=== PATIENT | male | born 1950 | race Caucasian/White ===

== ENCOUNTER 2017-07-01 01:47 | Emergency (ER) | END 2017-07-01 07:00 | disposition home or self-care (01) ==

== ENCOUNTER 2018-01-25 18:10 | Observation (INO) | END 2018-01-26 20:30 | disposition home or self-care (01) ==

== ENCOUNTER 2018-08-21 17:53 | Inpatient (IN) | payer OTHER ==
[~2018-08-21] VITALS: Ht 167.6 cm; Wt 70.5 kg
[~2018-08-21 17:53] MED LIST: ATOR20TA38 PO; CALC667C PO; CITA10TA5 PO; CLOP75TA19 PO; FINA5TAB4 PO; OMEP20CA16 PO; TAMS0.4C2 PO
[2018-08-21] MEDS ORDERED: morphine 4 MG/ML VIAL IV STA (20:17)
[2018-08-21] MEDS ORDERED: OMEP20CA16 PO (22:37)
[2018-08-21] MEDS ORDERED: TAMS0.4C2 PO (22:37)
[2018-08-21] MEDS ORDERED: CLOP75TA19 PO (22:37)
[2018-08-21] MEDS ORDERED: CITA10TA5 PO (22:38)
[2018-08-21] MEDS ORDERED: FINA5TAB4 PO (22:38)
[2018-08-21] MEDS ORDERED: ACET325T33 PO (22:39)
[2018-08-21] MEDS ORDERED: ONDANSETRON 4 MG INJ IV PRN (23:00)
[2018-08-21] MEDS ORDERED: ACETAMINOPHEN 325 MG TAB PO PRN (23:00)
[2018-08-21] MEDS ORDERED: morphine 10 MG INJ IV ONE (23:30)
[2018-08-22] VITALS (11 sets, daily range): BP systolic 110–156; BP diastolic 68–81; PULSE 68–95; RESP 17–20; Ht 167.6 cm; Wt 70.5 kg
--- NOTE | 2018-08-22 00:09 | ERD ---
ER Documentation Chief Complaint Chief Complaint mech fall an hour ago; feeling dizzy; denies passing out/vomiting; c/o CP HPI 68-year-old male with a history of ESRD on hemodialysis presenting after mechanical fall today. Patient states that he was going up a step into his home after dialysis, lost his balance and fell backwards hitting the back of his head. He denies loss of consciousness, nausea, vomiting, vision disturbance, focal weakness or numbness. He does state that the back of his head and neck including his upper back are not pain. He always has chronic back pain but this is new. He describes the pain as aching, worse with movement, 7 out of 10, radiating all over his upper back. He denies any lower back pain. No chest pain or shortness of breath however he does state that his pain is worse when he takes a deep breath. ROS All systems reviewed and are negative except as per history of present illness. Medications Home Meds Reported Medications Acetaminophen* (Tylenol*) 325 Mg Tablet, 325 MG PO NEEDED PRN for PAIN AND OR ELEVATED TEMP, TAB 08/21/18 Finasteride* (Finasteride*) 5 Mg Tablet, 5 MG PO DAILY, TAB 08/21/18 Citalopram Hydrobromide* (Citalopram Hydrobromide*) 10 Mg Tablet, 10 MG PO DAILY, #30 TAB 08/21/18 Omeprazole* (Omeprazole*) 20 Mg Capsule.dr, 20 MG PO DAILY, #30 CAP 08/21/18 Tamsulosin Hcl* (Tamsulosin Hcl*) 0.4 Mg Cap.er.24h, 0.4 MG PO HS, CAP 08/21/18 Clopidogrel Bisulfate* (Clopidogrel Bisulfate*) 75 Mg Tablet, 75 MG PO DAILY, #30 TAB 08/21/18 Discontinued Reported Medications Atorvastatin Calcium* (Atorvastatin Calcium*) 20 Mg Tablet, 20 MG PO QHS, #30 TAB 01/25/18 Omeprazole* (Omeprazole*) 20 Mg Capsule.dr, 20 MG PO DAILY, #30 CAP 01/25/18 Tamsulosin Hcl* (Tamsulosin Hcl*) 0.4 Mg Cap.er.24h, 0.4 MG PO HS, CAP 01/25/18 Calcium Acetate* (Calcium Acetate*) 667 Mg Capsule, 2001 MG PO WITH MEALS, #90 CAP 01/25/18 Citalopram Hydrobromide* (Citalopram Hydrobromide*) 10 Mg Tablet, 10 MG PO DAILY, #30 TAB 01/25/18 Clopidogrel Bisulfate* (Clopidogrel Bisulfate*) 75 Mg Tablet, 75 MG PO DAILY, #30 TAB 01/25/18 Finasteride* (Finasteride*) 5 Mg Tablet, 5 MG PO DAILY, TAB 01/25/18 Allergies Allergies: Coded Allergies: No Known Allergies (Verified Allergy, Unknown, 08/21/18) PMhx/Soc History of Surgery: No Anesthesia Reaction: No Hx Neurological Disorder: Yes (CVA, SEIZURE) Hx Respiratory Disorders: No Hx Cardiac Disorders: Yes (HTN, CHF, AL) Hx Psychiatric Problems: No Hx Miscellaneous Medical Probl: Yes (Ankylosing spondylitis) Hx Alcohol Use: Yes Hx Substance Use: No Hx Tobacco Use: Yes Smoking Status: Never smoker FmHx Family History: No diabetes Physical Exam Vitals Vital Signs Date Temp Pulse Resp B/P (MAP) Pulse Ox O2 O2 Flow FiO2 Time Delivery Rate 08/22/18 98.4 88 12 132/63 94 Room Air 00:52 (86) 08/22/18 98.4 100 23 144/67 94 Room Air 00:15 (92) 08/21/18 98.4 90 18 95/71 (79) 96 Room Air 23:30 08/21/18 98.4 98 20 124/71 96 Room Air 22:30 (88) 08/21/18 98.4 83 21 140/81 99 Room Air 21:50 (100) 08/21/18 98.4 90 21 135/56 99 Room Air 20:38 (82) 08/21/18 98.4 107 21 96/53 (67) 99 Room Air 19:49 08/21/18 98.4 82 20 96/53 (67) 99 18:00 Physical Exam Const: No acute distress, laying in bed nontoxic Head: Atraumatic, no hematomas or skull depression Eyes: Normal Conjunctiva, PERRLA, EOMI, no nystagmus ENT: Normal External Ears, Nose and Mouth. Neck: Full range of motion. No meningismus. Midline C-spine ten derness without step-offs. Paraspinal muscle tenderness bilaterally. Resp: Clear to auscultation bilaterally Cardio: Regular rate and rhythm, no murmurs. 2+ DP and PT pulses bilaterally. 2+ radial pulses bilaterally Abd: Soft, non tender, non distended. Normal bowel sounds Skin: No petechiae or rashes Back: Diffuse midline tenderness, worse in the thoracic region without step- offs. Right paraspinal muscle tenderness. No scapular tenderness. Ext: Normal to inspection and palpation without deformities. Full range of motion at all extremities Neur: Awake and alert, cranial nerves intact, speech normal, strength and sensations intact in all 4 extremities Psych: Normal Mood and Affect Result Diagram: 08/21/18200508/21/182005 Results 24 hrs Laboratory Tests Test 08/21/18 20:06 White Blood Count 13.0 10^3/ul Red Blood Count 4.11 10^6/ul Hemoglobin 12.0 g/dl Hematocrit 37.0 % Mean Corpuscular Volume 90.0 fl Mean Corpuscular Hemoglobin 29.2 pg Mean Corpuscular Hemoglobin Concent 32.4 g/dl Red Cell Distribution Width 13.9 % Platelet Count 238 10^3/UL Mean Platelet Volume 10.2 fl Immature Granulocytes % 0.700 % Neutrophils % 90.3 % Lymphocytes % 4.4 % Monocytes % 3.9 % Eosinophils % 0.2 % Basophils % 0.5 % Nucleated Red Blood Cells % 0.0 /100WBC Immature Granulocytes # 0.090 10^3/ul Neutrophils # 11.7 10^3/ul Lymphocytes # 0.6 10^3/ul Monocytes # 0.5 10^3/ul Eosinophils # 0.0 10^3/ul Basophils # 0.1 10^3/ul Nucleated Red Blood Cells # 0.0 10^3/ul Prothrombin Time 12.9 Sec Prothrombin Time Ratio 1.0 INR International Normalized Ratio 0.96 Activated Partial Thromboplast Time 25.3 Sec Sodium Level 141 mmol/L Potassium Level 3.5 mmol/L Chloride Level 90 mmol/L Carbon Dioxide Level 33 mmol/L Anion Gap 18 Blood Urea Nitrogen 36 mg/dl Creatinine 4.47 mg/dl Est Glomerular Filtrat Rate mL/min 13 mL/min Glucose Level 205 mg/dl Calcium Level 10.0 mg/dl Current Medications Medications Dose Sig/Kari Start Time Status Last (Trade) Ordered Route PRN Stop Time Admin Dose Reason Admin Morphine 4 mg ONCE STAT 08/21/18 DC 08/21/18 Sulfate IV 20:17 20:38 (morphine) 08/21/18 20:19 Ondansetron 4 mg BRIDGE ORDER 08/21/18 HCl (Zofran PRN IV 23:00 Inj) NAUSEA/VOMITI 08/22/18 22:59 NG 650 mg ER BRIDGE 08/21/18 Acetaminophen PRN PO 23:00 (Tylenol .MILD PAIN 08/22/18 22:59 Tab) 1-3 OR TEMP Morphine 6 mg ONCE ONCE 08/21/18 DC 08/21/18 Sulfate IV 23:30 23:30 (morphine) 08/21/18 23:31 IV Flush 3 ml PER 08/22/18 (NS 3 ml) PROTOCOL IV 01:00 Ondansetron 4 mg Q6H PRN 08/22/18 HCl (Zofran IV 01:00 Inj) NAUSEA/VOMITI NG 650 mg Q6H PRN 08/22/18 Acetaminophen PO .PAIN 1-3 01:00 (Tylenol OR TEMP Tab) 1 tab Q6H PRN 08/22/18 Acetaminophen PO .MOD PAIN 01:00 / 4-6 Hydrocodone Bitart ([place] (5/325)) 2 tab Q6H PRN 08/22/18 Acetaminophen PO .SEVERE 01:00 / PAIN 7-10 Hydrocodone Bitart ([place] (5/325)) Morphine 4 mg Q4H PRN 08/22/18 Sulfate IV .SEVERE 01:00 (morphine) PAIN 7-10 Heparin 5,000 unit Q12 SC 08/22/18 Sodium 09:00 (Porcine) (Heparin (5000 Units/1ml)) Albuterol/ 3 ml Q2H RESP 08/22/18 Ipratropium THERAPY PRN 01:00 (Duoneb) HHN SHORTNESS OF BREATH Citalopram 10 mg DAILY PO 08/22/18 Hydrobromide 09:00 (Celexa) Finasteride 5 mg DAILY PO 08/22/18 (Proscar) 09:00 Tamsulosin 0.4 mg HS PO 08/22/18 HCl 21:00 (Flomax) 20 mg DAILY PO 08/22/18 DC Miscellaneous 09:00 Information 08/22/18 09:00 40 mg DAILY@06 08/22/18 Pantoprazole PO 06:00 (Protonix Tab) Procedures/MDM EMERGENT LABS AND DIAGNOSTIC STUDIES: Lab Results above were reviewed and interpreted by me. CBC: Mild leukocytosis, likely stress response BMP shows elevated BUN and creatinine, consistent with chronic renal failure. Hyperglycemic without evidence of acidosis. No significant electrolyte abnormalities Coags are within normal limits Radiology Results as interpreted by Radiology below were reviewed by Berenice Jain MD: CT C-spine: C7 and T1 disc fracture, right C7 pedicle fracture. Bilateral pars fractures of C7. CT T and L-spine show no acute abnormalities X-ray of the pelvis shows no acute fractures or dislocations CT chest shows no acute intrathoracic or thoracic acute traumatic abnormalities. Initial Nursing notes reviewed. Previous Medical Records requested via the Electronic Health Record. EMERGENCY DEPARTMENT COURSE / MEDICAL DECISION MAKING: CT head was done given his age and fact that he is using anticoagulants. CT head did not show any significant abnormalities. However the CT of his C-spine did show fractures at the C7 level. There is no evidence of cord compression at this time or any neurologic deficit on exam. I spoke with the neurosurgeon on- call and he reviewed the images. He recommended c-collar which had already been placed. He also recommended an MRI of the C-spine which was ordered. I updated the patient and his family at bedside regarding the results and plan for admission. They are agreeable. Patient was treated with morphine for his pain with improvement. Accepting Care Team: Current data and ongoing care discussed. Time: Time of admission Primary Provider: Dr. Cartagena Consulting: Dr. Ortiz with Neurosurgery Outstanding Data: MRI patient is presenting after a ground-level fall with no loss of consciousness. Vitals are stable. He is neurovascularly intact.C spine Departure Diagnosis: Primary Impression: Cervical spine fracture Encounter type: initial encounter Cervical vertebra fracture level: C7 Fracture type: closed Fracture morphology: unspecified fracture morphology Fracture alignment: nondisplaced Qualified Codes: S12.601A - Unspecified nondisplaced fracture of seventh cervical vertebra, initial encounter for closed fracture Additional Impression: History of ankylosing spondylitis Condition: Serious ASRAH JAIN MD Aug 22, 2018 00:09
[2018-08-22] MEDS ORDERED: ONDANSETRON 4 MG INJ IV PRN (01:00)
[2018-08-22] MEDS ORDERED: NACL 0.9% 3 ML SYG IV SCH (01:00)
[2018-08-22] MEDS ORDERED: ACETAMINOPHEN 325 MG TAB PO PRN (01:00)
[2018-08-22] MEDS ORDERED: ALBUTEROL/IPRATROPIUM (NEB) 3 ML AMP HHN PRN (01:00)
[2018-08-22] MEDS ORDERED: HYDROCODONE/APAP (5/325) TAB PO PRN ×2 (01:00)
--- NOTE | 2018-08-22 04:56 | HP ---
Date/Time of Note Date/Time of Note DATE: 08/22/18 TIME: 04:51 Assessment/Plan VTE Prophylaxis Pharmacological prophylaxis: heparin Lines/Catheters IV Catheter Type (from Nrsg): [place] Lock Urinary Cath still in place: No Assessment/Plan Assessment/Plan 1. C7 fracture: Status post mechanical fall -Pain management -Awaiting neurosurgery eval 2. ESRD on HD: Nephrology for dialysis 3. Hypertension: Adjust BP meds as needed 4. History of CVA: Continue home antiplatelet therapy 5. BPH: Continue Flomax and finasteride Result Diagram: 08/21/18200508/21/182005 Results 24hrs Laboratory Tests Test 08/21/18 20:06 White Blood Count 13.0 #H Red Blood Count 4.11 L Hemoglobin 12.0 L Hematocrit 37.0 L Mean Corpuscular Volume 90.0 Mean Corpuscular Hemoglobin 29.2 Mean Corpuscular Hemoglobin Concent 32.4 Red Cell Distribution Width 13.9 Platelet Count 238 Mean Platelet Volume 10.2 Immature Granulocytes % 0.700 H Neutrophils % 90.3 H Lymphocytes % 4.4 L Monocytes % 3.9 Eosinophils % 0.2 Basophils % 0.5 Nucleated Red Blood Cells % 0.0 Immature Granulocytes # 0.090 H Neutrophils # 11.7 H Lymphocytes # 0.6 L Monocytes # 0.5 Eosinophils # 0.0 Basophils # 0.1 Nucleated Red Blood Cells # 0.0 Prothrombin Time 12.9 Prothrombin Time Ratio 1.0 INR International Normalized Ratio 0.96 Activated Partial Thromboplast Time 25.3 Sodium Level 141 Potassium Level 3.5 Chloride Level 90 L Carbon Dioxide Level 33 H Anion Gap 18 H Blood Urea Nitrogen 36 H Creatinine 4.47 H Est Glomerular Filtrat Rate mL/min 13 L Glucose Level 205 Calcium Level 10.0 HPI/ROS Admit Date/Time Admit Date/Time Aug 21, 2018 at 22:46 Hx of Present Illness This is a 68-year-old male with a history of hypertension, CVA, CHF, ESRD on HD, BPH who presents the ER complaining of back pain status post fall. Patient had a dialysis and after he went home, he lost his balance while walking upstairs resulting in him falling down. Imaging in the ER shows C7-T1 fracture. On-call neurosurgeon was contacted by ER. PMH/Family/Social Past Medical History Past Surgical History Past Surgical Hx: other (see hpi) Family History Significant Family History: no pertinent family hx Social History Alcohol Use: other Smoking Status: Unknown if ever smoked Drug Use: other Exam Constitutional: other (no acute distress) Eyes: PERRL ENMT: nl external ears & nose Neck: supple Respiratory: normal air movement Cardiovascular: nl pulses Gastrointestinal: soft Extremities: normal pulses Medications Current Medications Ondansetron HCl (Zofran Inj) 4 mg BRIDGE ORDER PRN IV NAUSEA/VOMITING; Start 08/21/18 at 23:00; Stop 08/22/18 at 22:59 Acetaminophen (Tylenol Tab) 650 mg ER BRIDGE PRN PO .MILD PAIN 1-3 OR TEMP; Start 08/21/18 at 23:00; Stop 08/22/18 at 22:59 IV Flush (NS 3 ml) 3 ml PER PROTOCOL IV ; Start 08/22/18 at 01:00 Ondansetron HCl (Zofran Inj) 4 mg Q6H PRN IV NAUSEA/VOMITING; Start 08/22/18 at 01:00 Acetaminophen (Tylenol Tab) 650 mg Q6H PRN PO .PAIN 1-3 OR TEMP; Start 08/22/18 at 01:00 Acetaminophen/ Hydrocodone Bitart ([place] (5/325)) 1 tab Q6H PRN PO .MOD PAIN 4- 6; Start 08/22/18 at 01:00 Acetaminophen/ Hydrocodone Bitart ([place] (5/325)) 2 tab Q6H PRN PO .SEVERE PAIN 7-10; Start 08/22/18 at 01:00 Morphine Sulfate (morphine) 4 mg Q4H PRN IV .SEVERE PAIN 7-10; Start 08/22/18 at 01:00 Heparin Sodium (Porcine) (Heparin (5000 Units/1ml)) 5,000 unit Q12 SC ; Start 08/22/18 at 09:00 Albuterol/ Ipratropium (Duoneb) 3 ml Q2H RESP THERAPY PRN HHN SHORTNESS OF BREATH; Start 08/22/18 at 01:00 Citalopram Hydrobromide (Celexa) 10 mg DAILY PO ; Start 08/22/18 at 09:00 Finasteride (Proscar) 5 mg DAILY PO ; Start 08/22/18 at 09:00 Tamsulosin HCl (Flomax) 0.4 mg HS PO ; Start 08/22/18 at 21:00 Pantoprazole (Protonix Tab) 40 mg DAILY@06 PO ; Start 08/22/18 at 06:00 Coded Allergies: No Known Allergies (Verified Allergy, Unknown, 08/21/18) Past Surgical History Past Surgical Hx: other Family History Significant Family History: no pertinent family hx Social History Smoking Status: Never smoker Exam/Review of Systems Vital Signs Vitals Vital Signs Date Temp Pulse Resp B/P (MAP) Pulse Ox O2 O2 Flow FiO2 Time Delivery Rate 08/22/18 89 04:00 08/22/18 98.5 17 156/77 93 02:50 (103) 08/22/18 Room Air 00:52 MIKAL CAGE MD Aug 22, 2018 04:56
[2018-08-22] MEDS: morphine 4 MG/ML VIAL IV PRN ×4 (05:26→20:10)
[2018-08-22] MEDS ORDERED: PANTOPRAZOLE (EC) 40 MG TAB PO SCH (06:00)
[2018-08-22] MEDS: HEPARIN 5,000 UNIT/1 ML VIAL SC SCH ×2 (08:36→20:12)
[2018-08-22] MEDS ORDERED: CITALOPRAM 20 MG TAB PO SCH (09:00)
[2018-08-22] MEDS ORDERED: FINASTERIDE 5 MG TAB PO SCH (09:00)
[2018-08-22] MEDS ORDERED: NON-FORMULARY/PATIENT OWN MED (Omeprazole* 20 MG) PO SCH (09:00)
--- NOTE | 2018-08-22 09:35 | CONS ---
Assessment/Plan Assessment/Plan Assessment/Plan (Daily) Diagnoses 1) Diffuse Idiopathic Skeletal Hyperostosis (DISH) 2) C7 vertebral fracture (anterior osteophyte and right pedicle) Mr. Segura is a 68 year old with multiple medical co-morbidities and DISH who has an anterior osteophyte fracture and Right pedicle fracture at C7. Given his co-morbidities and the presence of DISH (requiring a longer construct posterior fusion, possible anterior fusion), it is preferable to pursue conservative management for the now. - Please place in [place] Cervical Collar - can remove collar to eat at meals - Will see in follow-up in 6 weeks with a repeat C-spine CT (will determine if C-collar can be removed at that time and if conservative management can be continued) Consultation Date/Type/Reason Admit Date/Time Aug 21, 2018 at 22:46 Date of Consultation: Aug 22, 2018 Type of Consult Neurosurgery Reason for Consultation Neck pain, fall Date/Time of Note DATE: 08/22/18 TIME: 09:27 Hx of Present Illness Mr. Mcrae is a 68 year old male with history of ESRD on dialysis x3 years, prior stroke and acute CHF, on plavix who fell while walking up stairs yesterday and noted neck pain. He denies weakness or numbness. CT demonstrated a cervical fracture and DISH. Positive for neck pain Negative for weakness or numbness Past Medical History Home Meds Reported Medications Acetaminophen* (Tylenol*) 325 Mg Tablet, 325 MG PO NEEDED PRN for PAIN AND OR ELEVATED TEMP, TAB 08/21/18 Finasteride* (Finasteride*) 5 Mg Tablet, 5 MG PO DAILY, TAB 08/21/18 Citalopram Hydrobromide* (Citalopram Hydrobromide*) 10 Mg Tablet, 10 MG PO DAILY, #30 TAB 08/21/18 Omeprazole* (Omeprazole*) 20 Mg Capsule.dr, 20 MG PO DAILY, #30 CAP 08/21/18 Tamsulosin Hcl* (Tamsulosin Hcl*) 0.4 Mg Cap.er.24h, 0.4 MG PO HS, CAP 08/21/18 Clopidogrel Bisulfate* (Clopidogrel Bisulfate*) 75 Mg Tablet, 75 MG PO DAILY, #30 TAB 08/21/18 Discontinued Reported Medications Atorvastatin Calcium* (Atorvastatin Calcium*) 20 Mg Tablet, 20 MG PO QHS, #30 TAB 01/25/18 Omeprazole* (Omeprazole*) 20 Mg Capsule.dr, 20 MG PO DAILY, #30 CAP 01/25/18 Tamsulosin Hcl* (Tamsulosin Hcl*) 0.4 Mg Cap.er.24h, 0.4 MG PO HS, CAP 01/25/18 Calcium Acetate* (Calcium Acetate*) 667 Mg Capsule, 2001 MG PO WITH MEALS, #90 CAP 01/25/18 Citalopram Hydrobromide* (Citalopram Hydrobromide*) 10 Mg Tablet, 10 MG PO DAILY, #30 TAB 01/25/18 Clopidogrel Bisulfate* (Clopidogrel Bisulfate*) 75 Mg Tablet, 75 MG PO DAILY, #30 TAB 01/25/18 Finasteride* (Finasteride*) 5 Mg Tablet, 5 MG PO DAILY, TAB 01/25/18 Medications Current Medications Ondansetron HCl (Zofran Inj) 4 mg BRIDGE ORDER PRN IV NAUSEA/VOMITING; Start 08/21/18 at 23:00; Stop 08/22/18 at 22:59 Acetaminophen (Tylenol Tab) 650 mg ER BRIDGE PRN PO .MILD PAIN 1-3 OR TEMP; Start 08/21/18 at 23:00; Stop 08/22/18 at 22:59 IV Flush (NS 3 ml) 3 ml PER PROTOCOL IV ; Start 08/22/18 at 01:00 Ondansetron HCl (Zofran Inj) 4 mg Q6H PRN IV NAUSEA/VOMITING; Start 08/22/18 at 01:00 Acetaminophen (Tylenol Tab) 650 mg Q6H PRN PO .PAIN 1-3 OR TEMP; Start 08/22/18 at 01:00 Acetaminophen/ Hydrocodone Bitart ([place] (5/325)) 1 tab Q6H PRN PO .MOD PAIN 4- 6; Start 08/22/18 at 01:00 Acetaminophen/ Hydrocodone Bitart ([place] (5/325)) 2 tab Q6H PRN PO .SEVERE PAIN 7-10; Start 08/22/18 at 01:00 Morphine Sulfate (morphine) 4 mg Q4H PRN IV .SEVERE PAIN 7-10 Last administered on 08/22/18at 05:26; Admin Dose 4 MG; Start 08/22/18 at 01:00 Heparin Sodium (Porcine) (Heparin (5000 Units/1ml)) 5,000 unit Q12 SC Last administered on 08/22/18at 08:36; Admin Dose 5,000 UNIT; Start 08/22/18 at 09:00 Albuterol/ Ipratropium (Duoneb) 3 ml Q2H RESP THERAPY PRN HHN SHORTNESS OF BREATH; Start 08/22/18 at 01:00 Citalopram Hydrobromide (Celexa) 10 mg DAILY PO Last administered on 08/22/18at 08:30; Admin Dose 10 MG; Start 08/22/18 at 09:00 Finasteride (Proscar) 5 mg DAILY PO Last administered on 08/22/18at 08:30; Admin Dose 5 MG; Start 08/22/18 at 09:00 Tamsulosin HCl (Flomax) 0.4 mg HS PO ; Start 08/22/18 at 21:00 Pantoprazole (Protonix Tab) 40 mg DAILY@06 PO Last administered on 08/22/18at 05:26; Admin Dose 40 MG; Start 08/22/18 at 06:00 Allergies: Coded Allergies: No Known Allergies (Verified Allergy, Unknown, 08/21/18) Past Surgical History Past Surgical Hx: other Social History Smoking Status: Never smoker Exam/Review of Systems Exam Vitals Vital Signs Date Temp Pulse Resp B/P (MAP) Pulse Ox O2 O2 Flow FiO2 Time Delivery Rate 08/22/18 95 08:12 08/22/18 98.2 20 110/77 96 Room Air 07:32 (88) Intake and Output 08/21/18 08/21/18 08/22/18 1515:00 23:00 07:00 IntakeIntake Total 100 ml BalanceBalance 100 ml Exam In soft collar Full strength Results Result Diagram: 08/22/18 0556 08/22/18 0556 Results 24hrs Laboratory Tests Test 08/21/18 20:06 08/22/18 05:56 White Blood Count 13.0 #H 8.5 # Red Blood Count 4.11 L 3.72 L Hemoglobin 12.0 L 10.9 L Hematocrit 37.0 L 33.8 L Mean Corpuscular Volume 90.0 90.9 Mean Corpuscular Hemoglobin 29.2 29.3 Mean Corpuscular Hemoglobin Concent 32.4 32.2 Red Cell Distribution Width 13.9 14.1 Platelet Count 238 234 Mean Platelet Volume 10.2 10.3 Immature Granulocytes % 0.700 H 0.500 H Neutrophils % 90.3 H 76.5 Lymphocytes % 4.4 L 14.2 L Monocytes % 3.9 8.2 Eosinophils % 0.2 0.1 Basophils % 0.5 0.5 Nucleated Red Blood Cells % 0.0 0.0 Immature Granulocytes # 0.090 H 0.040 H Neutrophils # 11.7 H 6.5 Lymphocytes # 0.6 L 1.2 Monocytes # 0.5 0.7 Eosinophils # 0.0 0.0 Basophils # 0.1 0.0 Nucleated Red Blood Cells # 0.0 0.0 Prothrombin Time 12.9 Prothrombin Time Ratio 1.0 INR International Normalized Ratio 0.96 Activated Partial Thromboplast Time 25.3 Sodium Level 141 142 Potassium Level 3.5 3.8 Chloride Level 90 L 92 L Carbon Dioxide Level 33 H 33 H Anion Gap 18 H 17 H Blood Urea Nitrogen 36 H 44 H Creatinine 4.47 H 5.59 H Est Glomerular Filtrat Rate mL/min 13 L 10 L Glucose Level 205 127 # Calcium Level 10.0 9.6 Magnesium Level 2.3 Total Bilirubin 0.4 Direct Bilirubin 0.00 Indirect Bilirubin 0.4 Aspartate Amino Transf (AST/SGOT) 24 Alanine Aminotransferase (ALT/SGPT) 9 L Alkaline Phosphatase 84 Total Protein 8.6 H Albumin 4.5 Globulin 4.10 H Albumin/Globulin Ratio 1.[address] and MRI of the cervical spine demonstrate Diffuse Idiopathic Skeletal Hyperostosis (DISH) with an anterior osteophyte fracture at C7/T1 consistent with a hyperextension injury. There is a right pedicle fracture at C7. These fractures are non-displaced. There is no spinal canal compromise or kyphosis Medications Medication Current Medications Ondansetron HCl (Zofran Inj) 4 mg BRIDGE ORDER PRN IV NAUSEA/VOMITING; Start 08/21/18 at 23:00; Stop 08/22/18 at 22:59 Acetaminophen (Tylenol Tab) 650 mg ER BRIDGE PRN PO .MILD PAIN 1-3 OR TEMP; Start 08/21/18 at 23:00; Stop 08/22/18 at 22:59 IV Flush (NS 3 ml) 3 ml PER PROTOCOL IV ; Start 08/22/18 at 01:00 Ondansetron HCl (Zofran Inj) 4 mg Q6H PRN IV NAUSEA/VOMITING; Start 08/22/18 at 01:00 Acetaminophen (Tylenol Tab) 650 mg Q6H PRN PO .PAIN 1-3 OR TEMP; Start 08/22/18 at 01:00 Acetaminophen/ Hydrocodone Bitart ([place] (5/325)) 1 tab Q6H PRN PO .MOD PAIN 4- 6; Start 08/22/18 at 01:00 Acetaminophen/ Hydrocodone Bitart ([place] (5/325)) 2 tab Q6H PRN PO .SEVERE PAIN 7-10; Start 08/22/18 at 01:00 Morphine Sulfate (morphine) 4 mg Q4H PRN IV .SEVERE PAIN 7-10 Last administered on 08/22/18 05:26; Admin Dose 4 MG; Start 08/22/18 at 01:00 Heparin Sodium (Porcine) (Heparin (5000 Units/1ml)) 5,000 unit Q12 SC Last administered on 08/22/18at 08:36; Admin Dose 5,000 UNIT; Start 08/22/18 at 09:00 Albuterol/ Ipratropium (Duoneb) 3 ml Q2H RESP THERAPY PRN HHN SHORTNESS OF BREATH; Start 08/22/18 at 01:00 Citalopram Hydrobromide (Celexa) 10 mg DAILY PO Last administered on 08/22/18at 08:30; Admin Dose 10 MG; Start 08/22/18 at 09:00 Finasteride (Proscar) 5 mg DAILY PO Last administered on 08/22/18at 08:30; Admin Dose 5 MG; Start 08/22/18 at 09:00 Tamsulosin HCl (Flomax) 0.4 mg HS PO ; Start 08/22/18 at 21:00 Pantoprazole (Protonix Tab) 40 mg DAILY@06 PO Last administered on 08/22/18 05:26; Admin Dose 40 MG; Start 08/22/18 at 06:00 KEY MONAHAN MD Aug 22, 2018 09:35
--- NOTE | 2018-08-22 11:50 | PN ---
Date/Time of Note Date/Time of Note DATE: 08/22/18 TIME: 11:48 Assessment/Plan VTE Prophylaxis Risk score (from Nsg)>0 risk: 8 SCD applied (from Nsg): Yes Pharmacological prophylaxis: NA/contraindicated Pharm contraindication: other (scd) Lines/Catheters IV Catheter Type (from Nrsg): Saline Lock Urinary Cath still in place: No Assessment/Plan Hospital Course 68-year-old male with end-stage renal disease who had a mechanical fall at his home after hemodialysis yesterday and came in complaining of pain in his neck currently managed as follows : 1. acute C7/T1 spinal fracture with associated small ligamental tear -Patient has been seen by neurosurgery, recommendation is for conservative management for now -Patient is to have [place] collar at all times for at least 6 weeks, aspirin collar can be removed to eat per neurosurgery. -Patient to follow-up with neurosurgery in 6 weeks for further management 2. Chronic end-stage renal disease on hemodialysis on Wednesdays and Fridays, -continue routine dialysis, patient also has chronic metabolic acidosis from this 3. Diffuse idiopathic skeletal hyperostosis: -Patient may benefit from outpatient bone scan, will start calcium supplementation. We will also check vitamin D level 4. Chronic BPH continue home Flomax and tamsulosin 5. 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 Chronic depression on Cymbalta: Stable 7. Reported history of CHF? 8. reactive leukocytosis 9. Chronic normocytic anemia likely related to end-stage renal disease 10. Paroxysmal Aib -BB for rate control, not a candidate for anticoagulation, high fall risk, also on plavix Plan: Patient is to be managed conservatively for now with collar, will get physical therapy evaluation to determine disposition. However due to presence of continued pain, patient may benefit from [facility]-term [facility] [facility] placement and transition to home after that. We will discuss options with him. In the interim continue supportive care. Result Diagram: 08/22/18 0556 08/22/18 0556 Results 24hrs Laboratory Tests Test 08/21/18 20:06 08/22/18 05:56 White Blood Count 13.0 #H 8.5 # Red Blood Count 4.11 L 3.72 L Hemoglobin 12.0 L 10.9 L Hematocrit 37.0 L 33.8 L Mean Corpuscular Volume 90.0 90.9 Mean Corpuscular Hemoglobin 29.2 29.3 Mean Corpuscular Hemoglobin Concent 32.4 32.2 Red Cell Distribution Width 13.9 14.1 Platelet Count 238 234 Mean Platelet Volume 10.2 10.3 Immature Granulocytes % 0.700 H 0.500 H Neutrophils % 90.3 H 76.5 Lymphocytes % 4.4 L 14.2 L Monocytes % 3.9 8.2 Eosinophils % 0.2 0.1 Basophils % 0.5 0.5 Nucleated Red Blood Cells % 0.0 0.0 Immature Granulocytes # 0.090 H 0.040 H Neutrophils # 11.7 H 6.5 Lymphocytes # 0.6 L 1.2 Monocytes # 0.5 0.7 Eosinophils # 0.0 0.0 Basophils # 0.1 0.0 Nucleated Red Blood Cells # 0.0 0.0 Prothrombin Time 12.9 Prothrombin Time Ratio 1.0 INR International Normalized Ratio 0.96 Activated Partial Thromboplast Time 25.3 Sodium Level 141 142 Potassium Level 3.5 3.8 Chloride Level 90 L 92 L Carbon Dioxide Level 33 H 33 H Anion Gap 18 H 17 H Blood Urea Nitrogen 36 H 44 H Creatinine 4.47 H 5.59 H Est Glomerular Filtrat Rate mL/min 13 L 10 L Glucose Level 205 127 # Calcium Level 10.0 9.6 Magnesium Level 2.3 Total Bilirubin 0.4 Direct Bilirubin 0.00 Indirect Bilirubin 0.4 Aspartate Amino Transf (AST/SGOT) 24 Alanine Aminotransferase (ALT/SGPT) 9 L Alkaline Phosphatase 84 Total Protein 8.6 H Albumin 4.5 Globulin 4.10 H Albumin/Globulin Ratio 1.09 Subjective 24 Hr Interval Summary Free Text/Dictation Patient was going to the bathroom with assistance of 2CNAs intermittent pain in neck, responding well to prescribed meds went into Afib Exam/Review of Systems Exam Vitals Vital Signs Date Temp Pulse Resp B/P (MAP) Pulse Ox O2 O2 Flow FiO2 Time Delivery Rate 08/22/18 98.0 82 20 128/70 91 Room Air 11:25 (89) Intake and Output 08/21/18 08/21/18 08/22/18 1515:00 23:00 07:00 IntakeIntake Total 100 ml BalanceBalance 100 ml Exam Constitutional: alert, oriented, no distress Head: atraumatic, normocephalic Neck: soft collar in place Respiratory: clear to auscultation, diminished Cardiovascular: irregular Gastrointestinal: S/ NT / ND / +BS Extremities: no edema, good radial pulses, L sided hemiparesis limiting ambulation. Patient dragging LLE Results Results 24hrs Laboratory Tests Test 08/21/18 20:06 08/22/18 05:56 White Blood Count 13.0 #H 8.5 # Red Blood Count 4.11 L 3.72 L Hemoglobin 12.0 L 10.9 L Hematocrit 37.0 L 33.8 L Mean Corpuscular Volume 90.0 90.9 Mean Corpuscular Hemoglobin 29.2 29.3 Mean Corpuscular Hemoglobin Concent 32.4 32.2 Red Cell Distribution Width 13.9 14.1 Platelet Count 238 234 Mean Platelet Volume 10.2 10.3 Immature Granulocytes % 0.700 H 0.500 H Neutrophils % 90.3 H 76.5 Lymphocytes % 4.4 L 14.2 L Monocytes % 3.9 8.2 Eosinophils % 0.2 0.1 Basophils % 0.5 0.5 Nucleated Red Blood Cells % 0.0 0.0 Immature Granulocytes # 0.090 H 0.040 H Neutrophils # 11.7 H 6.5 Lymphocytes # 0.6 L 1.2 Monocytes # 0.5 0.7 Eosinophils # 0.0 0.0 Basophils # 0.1 0.0 Nucleated Red Blood Cells # 0.0 0.0 Prothrombin Time 12.9 Prothrombin Time Ratio 1.0 INR International Normalized Ratio 0.96 Activated Partial Thromboplast Time 25.3 Sodium Level 141 142 Potassium Level 3.5 3.8 Chloride Level 90 L 92 L Carbon Dioxide Level 33 H 33 H Anion Gap 18 H 17 H Blood Urea Nitrogen 36 H 44 H Creatinine 4.47 H 5.59 H Est Glomerular Filtrat Rate mL/min 13 L 10 L Glucose Level 205 127 # Calcium Level 10.0 9.6 Magnesium Level 2.3 Total Bilirubin 0.4 Direct Bilirubin 0.00 Indirect Bilirubin 0.4 Aspartate Amino Transf (AST/SGOT) 24 Alanine Aminotransferase (ALT/SGPT) 9 L Alkaline Phosphatase 84 Total Protein 8.6 H Albumin 4.5 Globulin 4.10 H Albumin/Globulin Ratio 1.09 Medications Medication Current Medications Ondansetron HCl (Zofran Inj) 4 mg BRIDGE ORDER PRN IV NAUSEA/VOMITING; Start 08/21/18 at 23:00; Stop 08/22/18 at 22:59 Acetaminophen (Tylenol Tab) 650 mg ER BRIDGE PRN PO .MILD PAIN 1-3 OR TEMP; Start 08/21/18 at 23:00; Stop 08/22/18 at 22:59 IV Flush (NS 3 ml) 3 ml PER PROTOCOL IV ; Start 08/22/18 at 01:00 Ondansetron HCl (Zofran Inj) 4 mg Q6H PRN IV NAUSEA/VOMITING; Start 08/22/18 at 01:00 Acetaminophen (Tylenol Tab) 650 mg Q6H PRN PO .PAIN 1-3 OR TEMP; Start 08/22/18 at 01:00 Acetaminophen/ Hydrocodone Bitart ([place] (5/325)) 1 tab Q6H PRN PO .MOD PAIN 4- 6; Start 08/22/18 at 01:00 Acetaminophen/ Hydrocodone Bitart ([place] (5/325)) 2 tab Q6H PRN PO .SEVERE PAIN 7-10; Start 08/22/18 at 01:00 Morphine Sulfate (morphine) 4 mg Q4H PRN IV .SEVERE PAIN 7-10 Last administered on 08/22/18at 10:19; Admin Dose 4 MG; Start 08/22/18 at 01:00 Heparin Sodium (Porcine) (Heparin (5000 Units/1ml)) 5,000 unit Q12 SC Last administered on 08/22/18at 08:36; Admin Dose 5,000 UNIT; Start 08/22/18 at 09:00 Albuterol/ Ipratropium (Duoneb) 3 ml Q2H RESP THERAPY PRN HHN SHORTNESS OF BREATH; Start 08/22/18 at 01:00 Citalopram Hydrobromide (Celexa) 10 mg DAILY PO Last administered on 08/22/18at 08:30; Admin Dose 10 MG; Start 08/22/18 at 09:00 Finasteride (Proscar) 5 mg DAILY PO Last administered on 08/22/18at 08:30; Admin Dose 5 MG; Start 08/22/18 at 09:00 Tamsulosin HCl (Flomax) 0.4 mg HS PO ; Start 08/22/18 at 21:00 Pantoprazole (Protonix Tab) 40 mg DAILY@06 PO Last administered on 08/22/18at 05:26; Admin Dose 40 MG; Start 08/22/18 at 06:00 HEATHER METCALF Aug 22, 2018 11:50
[2018-08-22] MEDS ORDERED: HYDR-3601 PO (11:51)
[2018-08-22] MEDS ORDERED: METO-448 PO (16:30)
[2018-08-22] MEDS ORDERED: METOPROLOL 25 MG TAB PO ONE (16:30)
--- NOTE | 2018-08-22 16:37 | PDOCDIS ---
Discharge Instructions DIAGNOSIS Discharge Diagnosis 1. acute C7/T1 spinal fracture with associated small ligamental tear -Patient has been seen by neurosurgery, recommendation is for conservative management for now -Patient is to have [place] collar at all times for at least 6 weeks, aspirin collar can be removed to eat per neurosurgery. -Patient to follow-up with neurosurgery in 6 weeks for further management 2. Chronic end-stage renal disease on hemodialysis on Wednesdays and Fridays, -continue routine dialysis, patient also has chronic metabolic acidosis from this 3. Diffuse idiopathic skeletal hyperostosis: -Patient may benefit from outpatient bone scan 4. Chronic BPH on Flomax and tamsulosin 5. 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 Paroxysmal Afib -not a candiate for anticoagulation due to L sided paresis from pre stroke and high fall risk. Also patient on plavix 6. Chronic depression on Cymbalta: Stable 7. Reported history of CHF? 8. reactive leukocytosis 9. Chronic normocytic anemia likely related to end-stage renal disease . CONDITION [id number] Patient Condition: [id number] Stable HOME CARE INSTRUCTIONS: [id number] Diet Instructions: [id number] Low Fat /Cholesterol [id number] Special Diet: Dusqb4i Renal ACTIVITY: [id number] Activity Restrictions: [id number] Slowly Increase Activity Rest between Activity [id number] Activity Restrictions Comment: Wypiq5f PT eval FOLLOW UP/APPOINTMENTS Follow-up Plan see diagnosis above . REFERRALS [id number] Referring Provider: KEY Kolb MD Other Referrals f/u with Dr Ortiz in 4 weeks Specialty : Neurosurgery Other Office ([facility]) [phone] Mitzi Maldonado Office Address : [address] [place] [address] Office Office [employer] HEATHER METCALF Aug 22, 2018 16:37
[2018-08-22] MEDS ORDERED: DOCUSATE SODIUM 250 MG CAP PO SCH (17:00)
[2018-08-22] MEDS: METOPROLOL 25 MG TAB PO SCH ×2 (17:08→20:11)
[2018-08-22] MEDS ORDERED: TAMSULOSIN (SR) 0.4 MG CAP PO SCH (21:00)
--- NOTE | 2018-08-23 09:13 | DS ---
DATE OF ADMISSION: 08/21/2018 DATE OF DISCHARGE: 08/23/2018 PRESENTING COMPLAINT: Neck pain after a mechanical fall. FINAL DIAGNOSES: 1. C7 fracture status post fall associated with a small ligamental tear. 2. Chronic end-stage renal disease, on hemodialysis Sunday, Sunday and Sunday. 3. Diffuse idiopathic skeletal hyperostosis. 4. Chronic benign prostatic hypertrophy. 5. Previous cerebrovascular accident, on Plavix, with residual left-sided weakness. 6. Chronic depression, on Cymbalta. 7. Reactive leukocytosis. 8. Chronic normocytic anemia. 9. Paroxysmal atrial fibrillation. 10. Possible reported history of congestive heart failure and unconfirmed. CONSULTS ON THE CASE: Rafa Ortiz MD. INTERVENTIONS: As the patient had multiple imaging studies that included a chest CT, cervical spine CT and MRI, lumbar spine CT, thoracic spine CT, pelvic x-ray and a CT scan of the brain. SHORT HOSPITAL COURSE: Full details are available in chart for review. In summary, this is a fairly pleasant 68-year-old male who does have a history of a previous stroke and is weak on his left side due to that, though he is able to ambulate, but he does drive a left side, is able to use a walker us ually. Apparently, he had returned from hemodialysis on the and, while going up the stairs, los t his balance and had a fall and presented to the emergency room complaining of a pain at the back of his head and neck. He was found to have C7-T1 fracture with ligamental injury that was also reviewe d on MRI. He was seen by Neurosurgery. Neurosurgery determined that given his comorbidities and pre sence of , this is likely to require a longer construct posterior fusion and possible anterior f usion, it was preferable to pursue conservative management for now. For details, please review the n eurosurgical note. His final recommendation was the patient to be on [place] cervical collar and this could be removed to eat at meals. He recommended follow up with him in 6 weeks to repeat a CAT scan of the cervical spine and then for continued further management. This was communicated to the [facility]. The patient, however, was quite debilitated, continues to have significant pain. So, he was wel[facility]ferred to the [facility] for continued rehabilitation and continued care. DISCHARGE CONDITION: Stable. ACTIVITY: As tolerated. MEDICATIONS: For a complete list of his discharge medications, please review the patient's chart. DIET: Recommended diet is low cholesterol, low fat, renal diet. After the patient was discharged, the laboratory called not to sign admission as MRSA screen was posi tive; however, this is likely colonization. He may need to be treated if he ever gets readmitted to the hospital, but at this time, no further intervention is warranted Time spent overall in coordination, discharge, review, discussion with consultants was more than 2 ho urs from this patient. Dictated By: HEATHER METCALF MD BA/NTS Conf#: [id number] DID#: [id number]
== END 2018-08-23 00:01 | DRG 551 ==
LOC: E/R 17:53 → TEL 22:46 → EDBEDREQSVC 23:28 → CANRESERV 23:39
PROVIDERS: ADMIT Internal Medicine; ATTEND Family Medicine
DX: S12.600A Unspecified displaced fracture of seventh cervical vertebra, initial encounter for closed fracture (principal); N18.6 End stage renal disease; I13.2 Hypertensive heart and chronic kidney disease with heart failure and with stage 5 chronic kidney disease, or end stage renal disease; I69.354 Hemiplegia and hemiparesis following cerebral infarction affecting left non-dominant side; I48.0 Paroxysmal atrial fibrillation; I50.9 Heart failure, unspecified; W10.9XXA Fall (on) (from) unspecified stairs and steps, initial encounter; Y93.01 Activity, walking, marching and hiking; Y92.019 Unspecified place in single-family (private) house as the place of occurrence of the external cause; Y99.8 Other external cause status; Z99.2 Dependence on renal dialysis; N40.0 Benign prostatic hyperplasia without lower urinary tract symptoms; M48.12 Ankylosing hyperostosis [Forestier], cervical region; F32.9 Major depressive disorder, single episode, unspecified; D63.1 Anemia in chronic kidney disease; Z79.02 Long term (current) use of antithrombotics/antiplatelets
CPT/HCPCS: 70450; 71250; 72125; 72128; 72131; 72141; 72170; 80048; 80053; 83735; 85025; 85610; 85730; 87081; 96374; 97163; J1644; J2270; J2405

== ENCOUNTER 2018-11-05 15:56 | Inpatient (IN) | payer OTHER ==
[~2018-11-05] VITALS: Ht 165.1 cm; Wt 66.9 kg
[~2018-11-05 15:56] MED LIST changes: +ACET325T33 PO; -ATOR20TA38 PO; -CALC667C PO; +HYDR-3601 PO; +METO-448 PO
--- NOTE | 2018-11-05 16:23 | ERD ---
ER Documentation Chief Complaint Chief Complaint BACK PAIN HPI The patient is a 68-year-old male, presenting to the ER from home because he complains of acute on chronic lower back pain. He fell on August 2018 and had a C7 fracture, not amenable for surgery. [facility] to [facility]. He was discharged 4 days ago to home. He was able to walk before he fell, now is unable to walk because of pain. He denies any new trauma, denies headache, chest pain, dyspnea, abdominal pain, vomiting, dysuria, diarrhea. He denies fecal/urinary incontinence. Medical history: BPH, depression, chronic kidney disease on hemodialysis Sunday, Sunday, Sunday, history of CVA with my left hemiplegia, CAD, hypertension, history of CHF, paroxysmal atrial fibrillation, chronic low back pain, DISH Surgical history: Left upper extremity AV fistula ROS All systems reviewed and are negative except as per history of present illness. Medications Home Meds Reported Medications Metoprolol Tartrate* (Lopressor*) 25 Mg Tab, 25 MG PO BID, #60 TAB HOLD FOR SBP<110 OR AR<60 11/05/18 Methocarbamol* (Methocarbamol*) 750 Mg Tablet, 750 MG PO Q6H PRN for MUSCLE SPASMS, TAB 11/05/18 Finasteride* (Finasteride*) 5 Mg Tablet, 5 MG PO DAILY, TAB 08/21/18 Citalopram Hydrobromide* (Citalopram Hydrobromide*) 10 Mg Tablet, 10 MG PO DAILY, #30 TAB 08/21/18 Omeprazole* (Omeprazole*) 20 Mg Capsule.dr, 20 MG PO DAILY, #30 CAP 08/21/18 Tamsulosin Hcl* (Tamsulosin Hcl*) 0.4 Mg Cap.er.24h, 0.4 MG PO HS, CAP 08/21/18 Clopidogrel Bisulfate* (Clopidogrel Bisulfate*) 75 Mg Tablet, 75 MG PO DAILY, #30 TAB 08/21/18 Discontinued Reported Medications Acetaminophen* (Tylenol*) 325 Mg Tablet, 325 MG PO NEEDED PRN for PAIN AND OR ELEVATED TEMP, TAB 08/21/18 Discontinued Scripts Metoprolol Tartrate* (Lopressor*) 25 Mg Tab, 25 MG PO BID, #60 TAB 2 Refills Prov:HEATHER METCALF 08/22/18 Hydrocodone Bit-Acetaminophen (Hydrocodone Bit-APAP) 5-325MG Tablet, 1 TAB PO Q6H PRN for .MOD PAIN 4-6, #30 TAB Prov:HEATHER METCALF 08/22/18 Allergies Allergies: Coded Allergies: No Known Allergies (Verified Allergy, Unknown, 11/05/18) PMhx/Soc History of Surgery: Yes (LEFT ARM FISTULA;) Anesthesia Reaction: No Hx Neurological Disorder: Yes (STROKE(LEFT SIDED WEAKNESS);) Hx Respiratory Disorders: No Hx Cardiac Disorders: Yes (HTN;FL;CHF;) Hx Psychiatric Problems: No Hx Miscellaneous Medical Probl: Yes Hx Alcohol Use: No Hx Substance Use: No Hx Tobacco Use: No Physical Exam Vitals Vital Signs Date Temp Pulse Resp B/P (MAP) Pulse Ox O2 O2 Flow FiO2 Time Delivery Rate 11/05/18 98.0 73 16 135/60 97 Room Air 17:00 (85) 11/05/18 97.7 82 18 169/82 98 16:02 (111) Physical Exam Const: No acute distress. Head: Atraumatic. Occipital ulcer with minimal dc Eyes: Normal Conjunctiva. ENT: Normal External Ears, Nose and Mouth. Neck: Full range of motion. No meningismus. Resp: Clear to auscultation bilaterally. Cardio: Regular rate and rhythm. Abd: Soft, non distended, normal bowel sounds, non tender. Skin: No petechiae or rashes. Back: No midline or flank tenderness. Ext: No cyanosis, or edema. Neur: Awake and alert. Right upper and right lower extremity 5/5, left upper and left lower extremity 4+ Psych: Normal Mood and Affect. Result Diagram: 11/05/18 1731 11/05/18 1731 Results 24 hrs Laboratory Tests Test 11/05/18 17:31 White Blood Count 11.0 10^3/ul Red Blood Count 4.58 10^6/ul Hemoglobin 12.7 g/dl Hematocrit 41.4 % Mean Corpuscular Volume 90.4 fl Mean Corpuscular Hemoglobin 27.7 pg Mean Corpuscular Hemoglobin Concent 30.7 g/dl Red Cell Distribution Width 17.2 % Platelet Count 270 10^3/UL Mean Platelet Volume 10.0 fl Immature Granulocytes % 0.500 % Neutrophils % 79.2 % Lymphocytes % 11.9 % Monocytes % 6.3 % Eosinophils % 1.6 % Basophils % 0.5 % Nucleated Red Blood Cells % 0.0 /100WBC Immature Granulocytes # 0.060 10^3/ul Neutrophils # 8.7 10^3/ul Lymphocytes # 1.3 10^3/ul Monocytes # 0.7 10^3/ul Eosinophils # 0.2 10^3/ul Basophils # 0.1 10^3/ul Nucleated Red Blood Cells # 0.0 10^3/ul Sodium Level 141 mmol/L Potassium Level 3.9 mmol/L Chloride Level 103 mmol/L Carbon Dioxide Level 29 mmol/L Anion Gap 9 Blood Urea Nitrogen 26 mg/dl Creatinine 3.90 mg/dl Est Glomerular Filtrat Rate mL/min 15 mL/min Glucose Level 130 mg/dl Calcium Level 9.1 mg/dl [facility] [address] Radiology Main Line: [phone] DIAGNOSTIC IMAGING REPORT Patient: VENU OSPINA : 1950 Age: 68 Sex: M MR #: [id number] DOS: 11/05/18 1712 Ordering MD: BEN SILVERMAN MD Location: E/R Room/Bed: PROCEDURE: XR Chest. CLINICAL INDICATION: Chest pain. TECHNIQUE: Portable AP semi erect view of the chest was obtained. COMPARISON: 08/21/2018 FINDINGS: The cardiomediastinal silhouette is mildly enlarged . Interstitial and alveolar infiltrates are present asymmetrically involving the right greater than left lung unable to exclude edema or pneumonia. There is no evidence of pleural effusion or pneumothorax. The osseous structures are intact with no evidence for acute abnormality. Calcification of the aorta is present RPTAT:HJJR IMPRESSION: 1. Cardiac silhouette enlargement with right greater than left interstitial/alveolar infiltrates unable to exclude congest heart failure without obvious pleural effusions. Pneumonia in the proper clinical setting is a consideration, correlation with fever and leukocytosis is suggested. 2. Aortic atherosclerosis is present. Physician Shana Date Time Electronically viewed and signed by Physician Shana on 11/05/2018 18:47 JR/ CC: BEN SILVERMAN MD [id number] [place] [id number] Radiology Main Line: [phone] DIAGNOSTIC IMAGING REPORT Patient: VENU OSPINA : 1950 Age: 68 Sex: M MR #: [id number] DOS: 11/05/18 1712 Ordering MD: BEN SILVERMAN MD Location: E/R Room/Bed: PROCEDURE: CT L-Spine. CLINICAL INDICATION: Back pain TECHNIQUE: A CT of the lumbar spine was performed on a [employer] 64-slice CT scanner utilizing high-resolution thin section axial images from the thoracic lumbar junction through the lumbar sacral junction. Sagittal and coronal and multiplanar reformatted images were made.The CTDIvol is 19.21 mGy and the DLP is 607.7 mGycm. DICOM images are available. One or more of the following dose reduction techniques were utilized: 1.) Automated exposure control 2.) Adjustment of the mA +/- kV according to patient's size 3.) Use of iterative reconstruction technique. COMPARISON: [facility] 08/21/2018 FINDINGS: Redemonstration of smooth flowing anterior syndesmophytes and multiple levels of bony ankylosis throughout the lumbar spine and sacroiliac joints consistent with ankylosing spondylitis. No evidence of superimposed acute fracture or vertebral body height loss. Normal alignment. No significant disc herniation or significant spinal stenosis. Stable bilateral perinephric stranding and severe calcified arterial atherosclerosis. IMPRESSION: Redemonstration of findings consistent with ankylosing spondylosis without evidence of superimposed acute fracture. No significant spinal stenosis. RPTAT: HRGF Physician Evi Date Time Electronically viewed and signed by Physician Evi on 11/05/2018 18:32 RF/ CC: BEN SILVERMAN MD [id number] EKG: Read by emergency physician Rate/Rhythm: Normal Sinus Rhythm 93 beats/min QRS, ST, T-waves: No ST elevation, no T inversion, PAC, artifacts, RSR' V1, prolong QT Impression: Abnormal EKG MEDICAL MAKING DECISION: The patient is a 68-year-old male, resenting to the ER because of acute on chronic back pain most likely due to ankylosing spondylosis. The differential diagnoses considered include but are not limited to caudal equina syndrome, spinal abscess, DJD, diskitis, lumbar radiculopathy. Departure Diagnosis: Primary Impression: Chronic low back pain Additional Impression: Anemia Condition: Stable Comments I discussed the findings with the patient and family. However, the family wanted him to go back to correction facility because he cannot take care of him at home I am currently awaiting for caser up to transfer the patient back to correction facility Disclaimer: Inadvertent spelling and grammatical errors are likely due to EHR/dictation software use and do not reflect on the overall quality of patient care. Also, please note that the electronic time recorded on this note does not necessarily reflect the actual time of the patient encounter. BEN SILVERMAN MD November 05, 2018 16:23
[2018-11-05] MEDS ORDERED: METH750T2 PO (17:36)
[2018-11-05] MEDS ORDERED: METO-448 PO (17:37)
[2018-11-05] MEDS ORDERED: ONDANSETRON 4 MG INJ IV PRN (23:30)
[2018-11-05] MEDS ORDERED: NACL 0.9% 3 ML SYG IV SCH (23:30)
[2018-11-05] MEDS ORDERED: DOCUSATE SODIUM 100 MG CAP PO PRN (23:30)
[2018-11-05] MEDS ORDERED: BISACODYL (EC) 5 MG TAB PO PRN (23:30)
--- NOTE | 2018-11-05 23:34 | HP ---
Date/Time of Note Date/Time of Note DATE: 11/05/18 TIME: 23:33 Assessment/Plan VTE Prophylaxis SCD applied (from Nsg): Yes Pharmacological prophylaxis: NA/contraindicated Pharm contraindication: low risk/ambulating Lines/Catheters IV Catheter Type (from Nrsg): Saline Lock Assessment/Plan Hospital Course This is a 68-year male being admitted to the [facility] floor for: #1 chronic lower back pain: CT scan: Redemonstration of findings consistent with ankylosing spondylosis without evidence of superimposed acute fracture. Will initiate pain control with [place]. Patient will need to find placement in the a.m. as he was unable to take care of himself at home., case management is ready working on this. #2 chest x-ray: Shows some mild congestion, patient does not appear to be in any acute distress. This likely secondary to him requiring dialysis. Will check an echocardiogram on the last to assess his heart function. Scheduled dialysis in the a.m. we will consult Dr. Kunz #3 scalp wound: Wound consult #4. History of C7/T1 spinal fracture with associated small ligamental tear: Conservative management, patient management with neurosurgery. #5. Chronic end-stage renal disease on hemodialysis on Wednesdays and Fridays, consult lolaro dr. kunz for HD #6. 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 Reported history of CHF: We will check a echocardiogram, he does appear to have some mild congestion on chest x-ray but this is likely secondary to his and requiring dialysis. #11 Chronic normocytic anemia likely related to end-stage renal disease #12. Paroxysmal Aif: BB for rate control, not a candidate for anticoagulation, high fall risk, also on plavix #13 DVT GI prophylaxis: SCDs, no GI prophylaxis indicated Further treatment strategy will be implemented as per the clinical course. Result Diagram: 11/05/18 1731 11/05/18 1731 Results 24hrs Laboratory Tests Test 11/05/18 17:31 White Blood Count 11.0 #H Red Blood Count 4.58 #L Hemoglobin 12.7 L Hematocrit 41.4 #L Mean Corpuscular Volume 90.4 Mean Corpuscular Hemoglobin 27.7 L Mean Corpuscular Hemoglobin Concent 30.7 L Red Cell Distribution Width 17.2 #H Platelet Count 270 Mean Platelet Volume 10.0 Immature Granulocytes % 0.500 H Neutrophils % 79.2 H Lymphocytes % 11.9 L Monocytes % 6.3 Eosinophils % 1.6 Basophils % 0.5 Nucleated Red Blood Cells % 0.0 Immature Granulocytes # 0.060 H Neutrophils # 8.7 H Lymphocytes # 1.3 Monocytes # 0.7 Eosinophils # 0.2 Basophils # 0.1 Nucleated Red Blood Cells # 0.0 Sodium Level 141 Potassium Level 3.9 Chloride Level 103 Carbon Dioxide Level 29 Anion Gap 9 Blood Urea Nitrogen 26 H Creatinine 3.90 H Est Glomerular Filtrat Rate mL/min 15 L Glucose Level 130 Calcium Level 9.1 HPI/ROS Admit Date/Time Admit Date/Time Hx of Present Illness Chief complaint: Chronic lower back pain The following history was obtained from the ED physician augmentation as well as from the RN and with the dynamite shooter. The patient is a 68-year-old male, presenting to the ER from home because he complains of acute on chronic lower back pain. He fell on August 2018 and had a C7 fracture, not amenable for surgery. [facility] to [facility]. He was discharged 4 days ago to home. He was able to walk before he fell, now is unable to walk because of pain. He denies any new trauma, denies headache, chest pain, dyspnea, abdominal pain, vomiting, dysuria, diarrhea. He denies fecal/urinary incontinence. Social work and case management were consulted in place and was to be placed in a retirement facility however case management was unable to place the patient overnight recommendation was to admit the patient so the patient could be placed in the a.m. Patient also has a hematosis patient and is due for dialysis tomorrow morning. Allergies: NKDA Medications: See AUG ROS Const: As per HPI Eyes : No pain discharge or redness or change in visual acuity ENT: No pain, sore throat, congestion, congestion, dysphagia or discharge Respiratory: No shortness of breath, cough, sputum, wheezing, or pleuritic pain Cardiovascular: No chest pain, palpitation, PND, or edema GI : no change in appetite, abdominal pain, nausea, vomiting, diarrhea, consti pation, or change in the color his stool Genitourinary: No dysuria, hematuria, flank pain , discharge or CVA tenderness Musculoskeletal: As per HPI Skin: No rash, bruising or hives Neuro: No headache, dizziness, syncope, seizure, focal weakness Endocrine: No polyuria, polydipsia, temperature intolerance Psych: No hallucination, depression, anxiety or suicidal ideation PMH/Family/Social Past Medical History 1. C7 fracture status post fall associated with a small ligamental tear. 2. Chronic end-stage renal disease, on hemodialysis Sunday, Sunday and . 3. Diffuse idiopathic skeletal hyperostosis. 4. Chronic benign prostatic hypertrophy. 5. Previous cerebrovascular accident, on Plavix, with residual left-sided weakness. 6. Chronic depression, on Cymbalta.. 8. Chronic normocytic anemia. 9. Paroxysmal atrial fibrillation. 10. CHF Medications Current Medications Citalopram Hydrobromide (Celexa) 10 mg DAILY PO ; Start 11/06/18 at 09:00 Clopidogrel Bisulfate (plaVIX) 75 mg DAILY PO ; Start 11/06/18 at 09:00 Finasteride (Proscar) 5 mg DAILY PO ; Start 11/06/18 at 09:00 Methocarbamol (Robaxin) 750 mg Q6H PRN PO MUSCLE SPASMS; Start 11/05/18 at 23:30 Metoprolol Tartrate (Lopressor) 25 mg BID PO ; Start 11/06/18 at 09:00 Tamsulosin HCl (Flomax) 0.4 mg HS PO ; Start 11/06/18 at 21:00 IV Flush (NS 3 ml) 3 ml PER PROTOCOL IV ; Start 11/05/18 at 23:30 Ondansetron HCl (Zofran Inj) 4 mg Q6H PRN IV NAUSEA/VOMITING; Start 11/05/18 at 23:30 Acetaminophen (Tylenol Tab) 650 mg Q6H PRN PO .PAIN 1-3 OR TEMP; Start 11/05/18 at 23:30 Acetaminophen/ Hydrocodone Bitart ([place] (5/325)) 1 tab Q6H PRN PO .MOD PAIN 4- 6; Start 11/05/18 at 23:30 Docusate Sodium (Colace) 100 mg Q12H PRN PO .CONSTIPATION; Start 11/05/18 at 23:30 Bisacodyl (Dulcolax) 5 mg DAILY PRN PO .CONSTIPATION; Start 11/05/18 at 23:30 Pantoprazole (Protonix Tab) 40 mg DAILY@06 PO ; Start 11/06/18 at 06:00 Coded Allergies: No Known Allergies (Verified Allergy, Unknown, 11/05/18) Past Surgical History Left upper extremity AV fistula Past Surgical Hx: other Family History Significant Family History: no pertinent family hx Social History Alcohol Use: none Smoking Status: Never smoker Drug Use: none Exam/Review of Systems Vital Signs Vitals Vital Signs Date Temp Pulse Resp B/P (MAP) Pulse Ox O2 O2 Flow FiO2 Time Delivery Rate 11/05/18 98.0 73 16 135/60 97 Room Air 17:00 (85) Exam Exam General: Currently lying in bed in no acute distress HEENT: Stage II-III scalp wound noted secondary to recent fall Neck: Supple with full range of motion. No rigidity or meningismus Chest: Nontender Lungs: Clear to auscultation bilaterally no crackles rales or wheezing Heart: Normal S1-S2, Regular rhythm and rate. No murmur, S3, or S4 Abdomen: Soft , nontender, nondistended , bowel sounds are present. No guarding no rebound tenderness , No masses or organomegaly. No costovertebral temporal angle mass Extremities: Normal to inspection, no edema no cyanosis Skin: Dermatitis noted of the gluteal area, stage II-III scalp wound Neurologic: Normal mental status, speech normal, cranial nerves II through XII are intact, motor and sensory are intact, chronic left-sided weakness secondary to CVA Additional Comments PROCEDURE: CT L-Spine. CLINICAL INDICATION: Back pain TECHNIQUE: A CT of the lumbar spine was performed on a Solavei 64-slice CT scanner utilizing high-resolution thin section axial images from the thoracic lumbar junction through the lumbar sacral junction. Sagittal and coronal and multiplanar reformatted images were made.The CTDIvol is 19.21 mGy and the DLP is 607.7 mGycm. DICOM images are available. One or more of the following dose reduction techniques were utilized: 1.) Automated exposure control 2.) Adjustment of the mA +/- kV according to patient's size 3.) Use of iterative reconstruction technique. COMPARISON: [facility] 08/21/2018 FINDINGS: Redemonstration of smooth flowing anterior syndesmophytes and multiple levels of bony ankylosis throughout the lumbar spine and sacroiliac joints consistent with ankylosing spondylitis. No evidence of superimposed acute fracture or vertebral body height loss. Normal alignment. No significant disc herniation or significant spinal stenosis. Stable bilateral perinephric stranding and severe calcified arterial atherosclerosis. IMPRESSION: Redemonstration of findings consistent with ankylosing spondylosis without evidence of superimposed acute fracture. No significant spinal stenosis. RPTAT: HRGF Physician Evi Date Time Electronically viewed and signed by Physician Evi on 11/05/2018 18:32 RF/ CC: BEN SILVERMAN MD [id number] PROCEDURE: XR Chest. CLINICAL INDICATION: Chest pain. TECHNIQUE: Portable AP semi erect view of the chest was obtained. COMPARISON: 08/21/2018 FINDINGS: The cardiomediastinal silhouette is mildly enlarged . Interstitial and alveolar infiltrates are present asymmetrically involving the right greater than left lung unable to exclude edema or pneumonia. There is no evidence of pleural effusion or pneumothorax. The osseous structures are intact with no evidence for acute abnormality. Calcification of the aorta is present RPTAT:HJJR IMPRESSION: 1. Cardiac silhouette enlargement with right greater than left interstitial/alveolar infiltrates unable to exclude congest heart failure w ithout obvious pleural effusions. Pneumonia in the proper clinical setting is a consideration, correlation with fever and leukocytosis is suggested. 2. Aortic atherosclerosis is present. Physician Shana Date Time Electronically viewed and signed by Physician Shana on 11/05/2018 18:47 JR/ CC: BEN SILVERMAN MD [id number] JOEL RAO November 05, 2018 23:34
[2018-11-06] VITALS (10 sets, daily range): BP systolic 115–150; BP diastolic 58–77; PULSE 64–90; RESP 18–20; Ht 165.1 cm; Wt 66.9 kg
[2018-11-06] MEDS ORDERED: LOPERAMIDE 2 MG CAP PO ONE (02:30)
[2018-11-06] MEDS: PANTOPRAZOLE (EC) 40 MG TAB PO SCH (05:40)
[2018-11-06] MEDS ORDERED: NON-FORMULARY/PATIENT OWN MED (Omeprazole* 20 MG) PO SCH (09:00)
[2018-11-06] MEDS: FINASTERIDE 5 MG TAB PO SCH (09:32)
[2018-11-06] MEDS: CLOPIDOGREL 75 MG TAB PO SCH (09:32)
[2018-11-06] MEDS: CITALOPRAM 20 MG TAB PO SCH (09:32)
[2018-11-06] MEDS: METOPROLOL 25 MG TAB PO SCH ×2 (09:32→21:00)
[2018-11-06] MEDS: HYDROCODONE/APAP (5/325) TAB PO PRN ×2 (15:42→22:00)
[2018-11-06] MEDS ORDERED: FUROSEMIDE 20 MG INJ IV ONE (16:30)
[2018-11-06] MEDS ORDERED: VANCOMYCIN IV PER PHARMACY XX SCH (16:30)
--- NOTE | 2018-11-06 16:38 | PN ---
Date/Time of Note Date/Time of Note DATE: 11/06/18 TIME: 16:23 Assessment/Plan VTE Prophylaxis Risk score (from Nsg)>0 risk: 3 SCD applied (from Nsg): Yes Pharmacological prophylaxis: heparin Lines/Catheters IV Catheter Type (from Nrs): Saline Lock Assessment/Plan Hospital Course S: diarrheal stools, scalp wound chronic O : Constitutional: alert, oriented, looks older than stated age, conversant Head: Scalp wound reviewed, normocephalic Neck: non-tender, supple Respiratory: clear to auscultation, but diminished bilaterally Cardiovascular: irregularly irregular, no murmurs Gastrointestinal: S/ NT / ND / +BS Extremities: no edema, good radial pulses assessment and plan: 68-year-old chronically debilitated male who looks older than his stated age who was brought in from home but had recently been at [facility] facility because of severe back pain and his family's inability to care for him. He is currently managed as follows: 1. Lower alcohol back pain, chronic ? with worsening debility and known C7/bleeding that if is not dizzy [id number] fracture from August 2018 -Patient is currently complaining of lower back pain, not pain in his neck-, but patient was able to ambulate prior and has lost that ability at this time. -So we will reimage his cervical spine and see the state of prior fracture. -Patient is also quite stiff 2. Decubitus ulcer on the back of the skull, likely secondary to lying in bed, per family patient developed this at [facility] facility where he was sent. -Per report from the family this has grown out staph in the past, will begin empiric antibiotics, repeat cultures, will order MRI to rule out osteomyelitis 3. End-stage renal disease on hemodialysis: Patient is planned for HD today 4. Bilateral infiltrates on chest x-ray, right greater than left: -Per radiology possible CHF versus pneumonia 6. History of previous CVA on Plavix with residual left-sided weakness 7. Chronic depression 8. Paroxysmal atrial fibrillation not a candidate for anticoagulation 9. Chronic normocytic anemia: Stable Dispo: -We will begin empiric antibiotics for scalp wound and ?pneumonia and follow-up plan as above -Patient has placement at [facility] once cleared -Rule out C. difficile -Physical therapy evaluation Further interventions per clinical course Result Diagram: 11/06/18 0436 11/06/18 0436 Results 24hrs Laboratory Tests Test 11/05/18 17:31 11/06/18 04:33 11/06/18 04:36 White Blood Count 11.0 #H 11.3 H Red Blood Count 4.58 #L 4.36 L Hemoglobin 12.7 L 12.1 L Hematocrit 41.4 #L 39.5 L Mean Corpuscular Volume 90.4 90.6 Mean Corpuscular Hemoglobin 27.7 L 27.8 L Mean Corpuscular Hemoglobin Concent 30.7 L 30.6 L Red Cell Distribution Width 17.2 #H 17.1 H Platelet Count 270 260 Mean Platelet Volume 10.0 10.2 Immature Granulocytes % 0.500 H 0.400 Neutrophils % 79.2 H 75.1 Lymphocytes % 11.9 L 13.7 L Monocytes % 6.3 5.9 Eosinophils % 1.6 4.2 Basophils % 0.5 0.7 Nucleated Red Blood Cells % 0.0 0.0 Immature Granulocytes # 0.060 H 0.050 H Neutrophils # 8.7 H 8.5 H Lymphocytes # 1.3 1.5 Monocytes # 0.7 0.7 Eosinophils # 0.2 0.5 Basophils # 0.1 0.1 Nucleated Red Blood Cells # 0.0 0.0 Sodium Level 141 140 Potassium Level 3.9 3.6 Chloride Level 103 105 Carbon Dioxide Level 29 26 Anion Gap 9 9 Blood Urea Nitrogen 26 H 29 H Creatinine 3.90 H 4.24 H Est Glomerular Filtrat Rate mL/min 15 L 14 L Glucose Level 130 95 Calcium Level 9.1 9.2 Hepatitis B Surface Antigen NEGATIVE Hepatitis B Surface Antibody POSITIVE H Magnesium Level 2.2 Total Bilirubin 0.4 Direct Bilirubin 0.00 Indirect Bilirubin 0.4 Aspartate Amino Transf (AST/SGOT) 19 Alanine Aminotransferase (ALT/SGPT) 11 L Alkaline Phosphatase 86 Total Protein 7.0 Albumin 3.6 Globulin 3.40 H Albumin/Globulin Ratio 1.05 Exam/Review of Systems Exam Vitals Vital Signs Date Temp Pulse Resp B/P (MAP) Pulse Ox O2 O2 Flow FiO2 Time Delivery Rate 11/06/18 99.0 83 18 126/59 95 14:44 (81) 11/06/18 Room Air 02:11 Intake and Output 11/05/18 11/05/18 11/06/18 1515:00 23:00 07:00 IntakeIntake Total 400 ml BalanceBalance 400 ml Results Results 24hrs Laboratory Tests Test 11/05/18 17:31 11/06/18 04:33 11/06/18 04:36 White Blood Count 11.0 #H 11.3 H Red Blood Count 4.58 #L 4.36 L Hemoglobin 12.7 L 12.1 L Hematocrit 41.4 #L 39.5 L Mean Corpuscular Volume 90.4 90.6 Mean Corpuscular Hemoglobin 27.7 L 27.8 L Mean Corpuscular Hemoglobin Concent 30.7 L 30.6 L Red Cell Distribution Width 17.2 #H 17.1 H Platelet Count 270 260 Mean Platelet Volume 10.0 10.2 Immature Granulocytes % 0.500 H 0.400 Neutrophils % 79.2 H 75.1 Lymphocytes % 11.9 L 13.7 L Monocytes % 6.3 5.9 Eosinophils % 1.6 4.2 Basophils % 0.5 0.7 Nucleated Red Blood Cells % 0.0 0.0 Immature Granulocytes # 0.060 H 0.050 H Neutrophils # 8.7 H 8.5 H Lymphocytes # 1.3 1.5 Monocytes # 0.7 0.7 Eosinophils # 0.2 0.5 Basophils # 0.1 0.1 Nucleated Red Blood Cells # 0.0 0.0 Sodium Level 141 140 Potassium Level 3.9 3.6 Chloride Level 103 105 Carbon Dioxide Level 29 26 Anion Gap 9 9 Blood Urea Nitrogen 26 H 29 H Creatinine 3.90 H 4.24 H Est Glomerular Filtrat Rate mL/min 15 L 14 L Glucose Level 130 95 Calcium Level 9.1 9.2 Hepatitis B Surface Antigen NEGATIVE Hepatitis B Surface Antibody POSITIVE H Magnesium Level 2.2 Total Bilirubin 0.4 Direct Bilirubin 0.00 Indirect Bilirubin 0.4 Aspartate Amino Transf (AST/SGOT) 19 Alanine Aminotransferase (ALT/SGPT) 11 L Alkaline Phosphatase 86 Total Protein 7.0 Albumin 3.6 Globulin 3.40 H Albumin/Globulin Ratio 1.05 Medications Medication Current Medications Citalopram Hydrobromide (Celexa) 10 mg DAILY PO Last administered on 11/06/18at 09:32; Admin Dose 10 MG; Start 11/06/18 at 09:00 Clopidogrel Bisulfate (plaVIX) 75 mg DAILY PO Last administered on 11/06/18at 09:32; Admin Dose 75 MG; Start 11/06/18 at 09:00 Finasteride (Proscar) 5 mg DAILY PO Last administered on 11/06/18at 09:32; Admin Dose 5 MG; Start 11/06/18 at 09:00 Methocarbamol (Robaxin) 750 mg Q6H PRN PO MUSCLE SPASMS; Start 11/05/18 at 23:30 Metoprolol Tartrate (Lopressor) 25 mg BID PO Last administered on 11/06/18at 09:32; Admin Dose 25 MG; Start 11/06/18 at 09:00 Tamsulosin HCl (Flomax) 0.4 mg HS PO ; Start 11/06/18 at 21:00 IV Flush (NS 3 ml) 3 ml PER PROTOCOL IV ; Start 11/05/18 at 23:30 Ondansetron HCl (Zofran Inj) 4 mg Q6H PRN IV NAUSEA/VOMITING; Start 11/05/18 at 23:30 Acetaminophen (Tylenol Tab) 650 mg Q6H PRN PO .PAIN 1-3 OR TEMP; Start 11/05/18 at 23:30 Acetaminophen/ Hydrocodone Bitart ([place] (5/325)) 1 tab Q6H PRN PO .MOD PAIN 4- 6 Last administered on 11/06/18at 15:42; Admin Dose 1 TAB; Start 11/05/18 at 23:30 Docusate Sodium (Colace) 100 mg Q12H PRN PO .CONSTIPATION; Start 11/05/18 at 23:30 Bisacodyl (Dulcolax) 5 mg DAILY PRN PO .CONSTIPATION; Start 11/05/18 at 23:30 Pantoprazole (Protonix Tab) 40 mg DAILY@06 PO Last administered on 11/06/18at 05:40; Admin Dose 40 MG; Start 11/06/18 at 06:00 Vancomycin HCl (Vanco Iv Per Pharmacy) VANCOMYCIN PER PHARMACY PER PROTOCOL XX ; Start 11/06/18 at 16:30; Status HEATHER SOTO November 06, 2018 16:38
--- NOTE | 2018-11-06 17:15 | CONS ---
DATE OF ADMISSION: 11/05/2018 DATE OF CONSULTATION: 11/06/2018 TYPE OF CONSULTATION: Nephrology. REASON FOR CONSULTATION: End-stage renal disease. PHYSICIAN REQUESTING CONSULT: Wally Rao MD. HISTORY OF PRESENT ILLNESS: This is a 68-year-old male with a past medical history of end-stage vladislav l disease on dialysis Sunday, Sunday, Sunday. Last hemodialysis was Sunday. The patient does not know his primary forepart reducer's name. Does not know where he dialyzes. The patient also has histor y of hypertension, anemia, mineral bone disorder, history of depression, who presents to [facility] after a mechanical fall. The patient fell on August 2018 with a C7 fracture that was not amenable for surgery. The patient was sent to a skilled nurse facility with discharge home 4 da ys ago. The patient was able to walk, but he fell. His daughter brought him to the emergency room. Upon arrival, the patient had imaging studies, which showed no evidence of acute fracture. The silver ent was subsequently admitted to med/surg for pain control. In terms of the patient's renal history, the patient is on end-stage renal disease on dialysis Sunday, Sunday and Sunday, access AV fistula. The patient does not know the location of his [facility] or his forepart reducer. Denies any hemoptysis, hematemesis or hematochezia. PAST MEDICAL HISTORY: History of end-stage renal disease, history of anemia, history of mineral bone disorder, history of idiopathic skeletal hyperostosis, history of BPH, history of CVA. FAMILY HISTORY: No family history of kidney disease. PAST SURGICAL HISTORY: Status post AV fistula. SOCIAL HISTORY: Does not drink, smoke or do drugs. MEDICATIONS: The patient's medication have been reviewed. REVIEW OF SYSTEMS: A 14-point review of systems conducted. Pertinent positives stated in HPI, other calhoun negative. PHYSICAL EXAMINATION: VITAL SIGNS: Blood pressure 126/59, respirations temperature 99.0. HEENT: Head is normocephalic. NECK: Supple. HEART: Regular rate. LUNGS: Show diminished breath sounds at base. ABDOMEN: Soft, nontender to palpation without rebound or guarding. EXTREMITIES: Negative for clubbing or cyanosis. Trace edema. DERMATOLOGIC: No rashes. MUSCULOSKELETAL: No joint effusion. NEUROLOGIC: No change in exam with no obvious focal deficits. The patient's medications have been reviewed. Laboratory data has been reviewed. ASSESSMENT AND PLAN: 1. End-stage renal disease. The patient is on dialysis Sunday, Sunday and Sunday, access AV fist john. Plan for hemodialysis today. We will dialyze for 3 hours on a 3k bath, calcium 2.5. 2. Anemia. Monitor hemoglobin and hematocrit levels. 3. Mineral bone disorder. Monitor calcium and phosphorus levels. 4. Hypertension. Continue current blood pressure regimen. Continue ultrafiltration dialysis. 5. Status post fall with lower back pain. The patient is status post CT scan with no evidence of ac nunu fracture. Continue to monitor. Continue pain control. 6. History of C7-T1 spinal fracture. 7. Benign prostatic hypertrophy. Continue medical management. 8. History of chronic kidney disease. Continue current treatment plan. 9. Depression. Continue Cymbalta. 10. History of congestive heart failure. The patient is mildly decompensated. Continue ultrafiltra tion dialysis. Thank you, Dr. Rao, for this interesting consult. It will be a pleasure to follow the patient wi th you throughout the hospital course. Dictated By: NIA RODARTE DO NR/NTS Conf#: [id number] DID#: [id number] CC: WALLY RAO MD; HEATHER METCALF MD;*EndCC*
[2018-11-06] MEDS: CEFEPIME 1GM/50 ML (PMX) 50 ML IVPB SCH (17:58)
[2018-11-06] MEDS ORDERED: VANCOMYCIN HCL 1.25 GM in SOD CHLORIDE 0.9% 250 ML IVPB ONE (20:00)
--- NOTE | 2018-11-06 21:43 | RADRPT ---
Echocardiogram Report Patient Name: VENU OSPINAPatient ID: [id number] : 9 (68y 5m)Study Date: 11/06/2018 9:01:39 AM Gender: Felizcession #: [id number] Tech: Suha [facility] Location: 407-A Ref.Physician: JOEL RAO Height(Cm): BSA: Weight(Kg): Quality: AdequateOrder Physician: JOEL RAO Account #: Procedures: Echocardiographic Report: Transthoracic echocardiogram with complete 2D, M-Mode, and doppler examination. Indications: Cardiomegaly, edema on cxr. Measurements: 2D/M Mode Doppler Measurement Value Normal Range Measurement Value Normal Range LVIDd 2D 3.8 [ 4.2 - 5.8 ] cm AV Peak Luís 1.1 [ 100.0 - 170.0 ] cm/sec LVIDs 2D 3.0 [ 2.5 - 4.0 ] cm AV Peak PG 5.0 [ 2.0 - 9.0 ] mmHg LVPWd 2D 0.8 [ 0.6 - 1.0 ] cm LVOT Peak Luís 0.9 [ 70.0 - 110.0 ] cm/sec IVSd 2D 1.3 [ 0.6 - 1.0 ] cm LVOT Peak PG 3.0 [ 2.0 - 6.0 ] mmHg AoR Diam 2D 3.0 [ 2.6 - 3.4 ] cm MV E Peak Luís 0.8 [ 60.0 - 130.0 ] cm/sec EDV 2D 63.1 [ 62.0 - 150.0 ] ml MV A Peak Luís 1.0 [ 100.0 - 120.0 ] cm/sec ESV 2D 34.2 [ 21.0 - 61.0 ] ml MV E/A 0.8 [ 0.8 - 1.5 ] ratio EF 2D 45.8 [ 52.0 - 72.0 ] percent MV Decel Time 190 [ 104 - 258 ] msec LA Dimen 2D 3.9 [ 3.0 - 4.0 ] cm Lat E` Luís 0.1 [ 10.0 - 15.0 ] cm/sec Lateral E/E` 8.8 [ 1.0 - 2.0 ] ratio MV E/A 0.8 [ 0.8 - 1.5 ] ratio TR Peak Luís 2.2 [ 100.0 - 280.0 ] cm/sec TR Peak PG 20.0 mmHg RVSP 23.0 [ 10.0 - 36.0 ] mmHg Findings: Left Ventricle: Normal left ventricular systolic function. Normal left ventricular cavity size. Mild asymmetric septal hypertrophy. Ejection fraction is visually estimated at 60 %. Tissue Doppler/Mitral Doppler indices are consistent with impaired relaxation (Stage I diastolic dysfunction). Right Ventricle: Normal right ventricular size. Normal right ventricular systolic function. Left Atrium: The left atrium is normal in size. Right Atrium: The right atrium is normal in size. Mitral Valve: Mild mitral leaflet calcification. Mild mitral annular calcification. Mild mitral valve regurgitation. Aortic Valve: No hemodynamically significant aortic stenosis by doppler. Aortic cusps appear mildly calcified. Tricuspid Valve: Normal appearance of the tricuspid valve. The estimated Peak RVSP is 23 mmHg. There is trace tricuspid regurgitation. Pericardium: Normal pericardium with no significant pericardial effusion. Aorta: Normal aortic root. IVC: Normal size and normal respiratory collapse consistent with normal right atrial pressure. Conclusions: Normal left ventricular systolic function. Normal left ventricular cavity size. Mild asymmetric septal hypertrophy. Ejection fraction is visually estimated at 60 %. Tissue Doppler/Mitral Doppler indices are consistent with impaired relaxation (Stage I diastolic dysfunction). Normal right ventricular size. Normal right ventricular systolic function. The left atrium is normal in size. The right atrium is normal in size. Mild mitral valve regurgitation. No significant valvular stenosis or regurgitation seen of remaining visualized valves. Normal pericardium with no significant pericardial effusion. Electronically Signed By: Yang Cook 2018-11-06 21:42:04 PDT
[2018-11-06] MEDS: L ACIDOPHIL/B LACTIS/B LONGUM CAPSULE PO SCH (21:58)
[2018-11-06] MEDS: TAMSULOSIN (SR) 0.4 MG CAP PO SCH (21:59)
[2018-11-06] MEDS: HEPARIN 5,000 UNIT/1 ML VIAL SC SCH (22:04)
[2018-11-07] VITALS (11 sets, daily range): BP systolic 98–134; BP diastolic 57–79; PULSE 60–84; RESP 18–20
[2018-11-07] MEDS: HYDROCODONE/APAP (5/325) TAB PO PRN ×2 (04:04→16:06)
[2018-11-07] MEDS: PANTOPRAZOLE (EC) 40 MG TAB PO SCH (04:04)
[2018-11-07] MEDS: FINASTERIDE 5 MG TAB PO SCH (10:01)
[2018-11-07] MEDS: CLOPIDOGREL 75 MG TAB PO SCH (10:01)
[2018-11-07] MEDS: L ACIDOPHIL/B LACTIS/B LONGUM CAPSULE PO SCH ×2 (10:01→20:28)
[2018-11-07] MEDS: CITALOPRAM 20 MG TAB PO SCH (10:01)
[2018-11-07] MEDS: METOPROLOL 25 MG TAB PO SCH (10:02)
[2018-11-07] MEDS: HEPARIN 5,000 UNIT/1 ML VIAL SC SCH (10:10)
[2018-11-07] MEDS ORDERED: POTASSIUM CHLORIDE (SR) 20 MEQ TAB PO STA (13:31)
--- NOTE | 2018-11-07 14:49 | CONS ---
Assessment/Plan Assessment/Plan Assessment/Plan (Daily) 68 y/o with #lower chronicback pain, with hx c7 and t1 fracture now with wound+ OM +Fungus # Diarrhoea > ro c diff # End-stage renal disease. The patient is on dialysis Sunday, Sunday and Sunday, access AV fistula. #. Anemia. Monitor hemoglobin and hematocrit levels. #. Mineral bone disorder. Monitor calcium and phosphorus levels. # Hypertension. C # Benign prostatic hypertrophy. # Depression. Continue Cymbalta. # History of congestive heart failure > compensated # Afib # hx stroke: on plavix Plan - HD tmw MWF - Pending ID - c diff pending - MRI c spine pending - PT - IV Abx per ID - Renally dose all med s Consultation Date/Type/Reason Admit Date/Time November 07, 2018 at 08:30 Initial Consult Date Date/Time of Note DATE: 11/07/18 TIME: 14:43 24 HR Interval Summary Free Text/Dictation Patient is having diarrhea. Wounds positive for fungus culture Exam/Review of Systems Exam Vitals Vital Signs Date Temp Pulse Resp B/P (MAP) Pulse Ox O2 O2 Flow FiO2 Time Delivery Rate 11/07/18 99.1 60 18 115/57 91 14:34 (76) 11/07/18 Room Air 02:07 Intake and Output 11/06/18 11/06/18 11/07/18 1515:00 23:00 07:00 IntakeIntake Total 50 ml 250 ml OutputOutput Total 2 ml 2400 ml BalanceBalance -2 ml 50 ml -2150 ml Exam HEENT: Head is normocephalic. wound+ NECK: Supple. HEART: Regular rate. LUNGS: Show diminished breath sounds at base. ABDOMEN: Soft, nontender to palpation without rebound or guarding. EXTREMITIES: Negative for clubbing or cyanosis. Trace edema. DERMATOLOGIC: No rashes. MUSCULOSKELETAL: No joint effusion. NEUROLOGIC: Awake alert and oriented. Results Result Diagram: 11/07/180 11/07/18449 Results 24hrs Laboratory Tests Test 11/07/18 04:50 White Blood Count 9.3 Red Blood Count 4.47 L Hemoglobin 12.4 L Hematocrit 39.8 L Mean Corpuscular Volume 89.0 Mean Corpuscular Hemoglobin 27.7 L Mean Corpuscular Hemoglobin Concent 31.2 L Red Cell Distribution Width 16.8 H Platelet Count 253 Mean Platelet Volume 10.2 Immature Granulocytes % 0.400 Neutrophils % 70.9 Lymphocytes % 15.6 Monocytes % 6.5 Eosinophils % 5.8 Basophils % 0.8 Nucleated Red Blood Cells % 0.0 Immature Granulocytes # 0.040 H Neutrophils # 6.6 Lymphocytes # 1.4 Monocytes # 0.6 Eosinophils # 0.5 Basophils # 0.1 Nucleated Red Blood Cells # 0.0 Sodium Level 140 Potassium Level 3.3 L Chloride Level 102 Carbon Dioxide Level 30 Anion Gap 8 Blood Urea Nitrogen 18 # Creatinine 3.01 #H Est Glomerular Filtrat Rate mL/min 21 L Glucose Level 105 Calcium Level 8.9 Phosphorus Level 2.7 Magnesium Level 2.1 Iron Level 37 Total Iron Binding Capacity 190 L Percent Iron Saturation 19 L Medications Medication Current Medications Citalopram Hydrobromide (Celexa) 10 mg DAILY PO Last administered on 11/07/18 10:01; Admin Dose 10 MG; Start 11/06/18 at 09:00 Clopidogrel Bisulfate (plaVIX) 75 mg DAILY PO Last administered on 11/07/18 10:01; Admin Dose 75 MG; Start 11/06/18 at 09:00 Finasteride (Proscar) 5 mg DAILY PO Last administered on 11/07/18 10:01; Admin Dose 5 MG; Start 11/06/18 at 09:00 Methocarbamol (Robaxin) 750 mg Q6H PRN PO MUSCLE SPASMS; Start 11/05/18 at 23:30 Tamsulosin HCl (Flomax) 0.4 mg HS PO Last administered on 11/06/18at 21:59; Admin Dose 0.4 MG; Start 11/06/18 at 21:00 IV Flush (NS 3 ml) 3 ml PER PROTOCOL IV ; Start 11/05/18 at 23:30 Ondansetron HCl (Zofran Inj) 4 mg Q6H PRN IV NAUSEA/VOMITING; Start 11/05/18 at 23:30 Acetaminophen (Tylenol Tab) 650 mg Q6H PRN PO .PAIN 1-3 OR TEMP; Start 11/05/18 at 23:30 Acetaminophen/ Hydrocodone Bitart ([place] (5/325)) 1 tab Q6H PRN PO .MOD PAIN 4- 6 Last administered on 11/07/18 04:04; Admin Dose 1 TAB; Start 11/05/18 at 23:30 Docusate Sodium (Colace) 100 mg Q12H PRN PO .CONSTIPATION; Start 11/05/18 at 23:30 Bisacodyl (Dulcolax) 5 mg DAILY PRN PO .CONSTIPATION; Start 11/05/18 at 23:30 Pantoprazole (Protonix Tab) 40 mg DAILY@06 PO Last administered on 11/07/18at 04:04; Admin Dose 40 MG; Start 11/06/18 at 06:00 Vancomycin HCl (Vanco Iv Per Pharmacy) VANCOMYCIN PER PHARMACY PER PROTOCOL XX ; Start 11/06/18 at 16:30 Lactobacillus Acidophilus (Florajen3 Capsule) 1 each BID PO Last administered on 11/07/18at 10:01; Admin Dose 1 EACH; Start 11/06/18 at 21:00 Cefepime HCl 50 ml @ 100 mls/hr Q24H IVPB Last administered on 11/06/18at 17:58; Admin Dose 100 MLS/HR; Start 11/06/18 at 17:00 Heparin Sodium (Porcine) (Heparin (5000 Units/1ml)) 5,000 unit BID SC Last administered on 11/07/18at 10:10; Admin Dose 5,000 UNIT; Start 11/06/18 at 21:00 Collagenase (Santyl) 1 applic BID TOP ; Start 11/07/18 at 13:30 ANATOLY VILLEGAS MD November 07, 2018 14:49
[2018-11-07] MEDS: COLLAGENASE 5 GM (UD JAR) TOP SCH ×2 (16:04→20:29)
[2018-11-07] MEDS: CEFEPIME 1GM/50 ML (PMX) 50 ML IVPB SCH (16:05)
--- NOTE | 2018-11-07 16:27 | PN ---
DATE: 11/07/2018 SUBJECTIVE: The patient continues to have intermittent episodes of diarrhea. He remains lethargic, but it looks like his back pain is better controlled. He underwent MRI today, but MRI of the C-spine is still pending. PHYSICAL EXAMINATION: VITAL SIGNS: Temperature 98.5, pulse 83, respirations 18, blood pressure 134/79, saturations 94% on room air. GENERAL: The patient is lying in bed, again remains very still, looks older than stated age, quite debilitated, does not seem like he can ambulate on his own. HEENT: Head with known ulcer in the posterior area. Otherwise, pupils are equal and reactive. NECK: Does not seem tender. CHEST: With diminished breath sounds bilaterally without crackles or wheezes. CARDIOVASCULAR: S1 and S2. No murmurs. ABDOMEN: Soft, nontender, nondistended. Normoactive bowel sounds. EXTREMITIES: Lower extremity is negative for edema. NEUROLOGIC: Alert, oriented. Seems to move all 4 extremities, but has not been able to ambulate. LABORATORY VALUES: Today, hypokalemia of 3.3, creatinine is 3. Iron profile is consistent with mild iron deficiency. Liver profile is unremarkable. Hematology: Leukocytosis is resolved, continues to have hypochromasia and anemia. IMAGING: MRI of the brain reviewed. It did show left occipital bone osteomyelitis with overlying cellulitis, but no abscess and sequelae of chronic hemorrhage in the right subinsular/basal ganglia and chronic lacunar infarct in the right paramedian lesa and bilateral thalami. IMPRESSION: A 68-year-old male who was brought in by family because of severe debility and back pain, managed as follows: 1. Lower back pain with worsening debility and known C7 to T1 vertebral fracture from 08/2018. - We are awaiting a C-spine MRI. - We are also awaiting physical therapy evaluation. - CT does show sequelae of prior hemorrhagic basal ganglia stroke and multiple chronic lacunar strokes. This could be contributing to patient's debility. 2. Decubitus ulcer with cellulitis and osteomyelitis. - Follow up final cultures. Currently, wound cultures are growing [place]. We will get an ID consultation. Add fluconazole to current regimen. - The patient at this time is on cefepime and vancomycin. 3. End-stage renal disease, on hemodialysis. - The patient maintains the routine hemodialysis per nephrology. I appreciate input. 4. Bilateral infiltrates, right greater than left, congestive heart failure versus pneumonia. - Continue empiric antibiotics. Continue ultrafiltration per radiology. 5. 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 - The patient seems to be globally weak at this time. Await physical therapy review and recommendations. - The patient is on Plavix. I am going to hold that based on MRI findings of prior bleed. We have to speak with neurosurgery to see if the patient can tolerate anticoagulation or baby aspirin at this time. 6. Chronic depression. - Continue home meds. 7. Paroxysmal atrial fibrillation, not a candidate for anticoagulation due to debility. 8. Chronic normocytic anemia: Stable. 9. Diarrhea. Rule out Clostridium difficile. DISPOSITION: 1. First, we have to follow C-spine MRI to see what the status of his prior fractures is. - We are going to get neurosurgical consultation to advise us on how to proceed with antiplatelet and also because of concern of this prior spine injury, fracture and the patient's current debility. - Physical therapy evaluation is also still pending. - Follow up C. diff assay. 2. Begin IV iron replacement. 3. Continue antibiotics. Further interventions per clinical course 4. The patient will be continued to monitor on medical and surgical floor. Dictated By: HEATHER METCALF MD BA/NTS Conf#: [id number] DID#: [id number] CC: JOEL RAO MD; ANATOLY VILLEGAS;*EndCC* MTDD
[2018-11-07] MEDS: TAMSULOSIN (SR) 0.4 MG CAP PO SCH (20:28)
[2018-11-08] VITALS (14 sets, daily range): BP systolic 109–168; BP diastolic 56–87; PULSE 71–93; RESP 18–20
[2018-11-08] MEDS: HYDROCODONE/APAP (5/325) TAB PO PRN ×3 (00:55→23:21)
[2018-11-08] MEDS: PANTOPRAZOLE (EC) 40 MG TAB PO SCH (05:16)
--- NOTE | 2018-11-08 07:53 | CONS ---
Assessment/Plan Assessment/Plan Hospital Course (Demo Recall) 1) L occipital scalp wound ESR and CRP are not very elevated MRI suggests osteo but could be reactive to surface infection I will order bone scan scalp cx grew only c.alb which is very unlikely to be significant change vanco/cefepime to doxy/keflex if bone scan is neg then continue doxy/keflex thru 11/20 2) ESRD 3) diarrhea c.dif has been ordered pt is on probiotics 4)BPH 5) hx of CVA with L sided weakness 6) paroxysmal a-fib plavix was stopped Consultation Date/Type/Reason Admit Date/Time November 07, 2018 at 08:30 Date of Consultation: November 08, 2018 Type of Consult ID Date/Time of Note DATE: 11/08/18 TIME: 07:44 Hx of Present Illness pt was admitted due to more LBP after he was tx from SNF to home 4 days [employer] he was noted to have a scalp lesion and an MRI suggested possible osteomyelitis of area and is the reason for the ID consult no F, C, NS noted no N, V pt now had diarrhea no SOB Past Medical History C7 fx. ESRD. amlu;psomg s[pmdu;otos. BPH, CVA with L sided weakness, paroxysmal a-fib, CHF, anemia, depression Home Meds Reported Medications Metoprolol Tartrate* (Lopressor*) 25 Mg Tab, 25 MG PO BID, #60 TAB HOLD FOR SBP<110 OR WA<60 11/05/18 Methocarbamol* (Methocarbamol*) 750 Mg Tablet, 750 MG PO Q6H PRN for MUSCLE SPASMS, TAB 11/05/18 Finasteride* (Finasteride*) 5 Mg Tablet, 5 MG PO DAILY, TAB 08/21/18 Citalopram Hydrobromide* (Citalopram Hydrobromide*) 10 Mg Tablet, 10 MG PO DAILY, #30 TAB 08/21/18 Omeprazole* (Omeprazole*) 20 Mg Capsule.dr, 20 MG PO DAILY, #30 CAP 08/21/18 Tamsulosin Hcl* (Tamsulosin Hcl*) 0.4 Mg Cap.er.24h, 0.4 MG PO HS, CAP 08/21/18 Clopidogrel Bisulfate* (Clopidogrel Bisulfate*) 75 Mg Tablet, 75 MG PO DAILY, #30 TAB 08/21/18 Discontinued Reported Medications Acetaminophen* (Tylenol*) 325 Mg Tablet, 325 MG PO NEEDED PRN for PAIN AND OR ELEVATED TEMP, TAB 08/21/18 Discontinued Scripts Metoprolol Tartrate* (Lopressor*) 25 Mg Tab, 25 MG PO BID, #60 TAB 2 Refills Prov:HEATHER METCALF. 08/22/18 Hydrocodone Bit-Acetaminophen (Hydrocodone Bit-APAP) 5-325MG Tablet, 1 TAB PO Q6H PRN for .MOD PAIN 4-6, #30 TAB Prov:HEATHER METCALF. 08/22/18 Medications Current Medications Citalopram Hydrobromide (Celexa) 10 mg DAILY PO Last administered on 11/07/18at 10:01; Admin Dose 10 MG; Start 11/06/18 at 09:00 Finasteride (Proscar) 5 mg DAILY PO Last administered on 11/07/18at 10:01; Admin Dose 5 MG; Start 11/06/18 at 09:00 Methocarbamol (Robaxin) 750 mg Q6H PRN PO MUSCLE SPASMS; Start 11/05/18 at 23:30 Tamsulosin HCl (Flomax) 0.4 mg HS PO Last administered on 11/07/18at 20:28; Admin Dose 0.4 MG; Start 11/06/18 at 21:00 IV Flush (NS 3 ml) 3 ml PER PROTOCOL IV ; Start 11/05/18 at 23:30 Ondansetron HCl (Zofran Inj) 4 mg Q6H PRN IV NAUSEA/VOMITING; Start 11/05/18 at 23:30 Acetaminophen (Tylenol Tab) 650 mg Q6H PRN PO .PAIN 1-3 OR TEMP; Start 11/05/18 at 23:30 Acetaminophen/ Hydrocodone Bitart ([place] (5/325)) 1 tab Q6H PRN PO .MOD PAIN 4- 6 Last administered on 11/08/18at 00:55; Admin Dose 1 TAB; Start 11/05/18 at 23:30 Docusate Sodium (Colace) 100 mg Q12H PRN PO .CONSTIPATION; Start 11/05/18 at 23:30 Bisacodyl (Dulcolax) 5 mg DAILY PRN PO .CONSTIPATION; Start 11/05/18 at 23:30 Pantoprazole (Protonix Tab) 40 mg DAILY@06 PO Last administered on 11/08/18at 05:16; Admin Dose 40 MG; Start 11/06/18 at 06:00 Vancomycin HCl (Vanco Iv Per Pharmacy) VANCOMYCIN PER PHARMACY PER PROTOCOL XX ; Start 11/06/18 at 16:30 Lactobacillus Acidophilus (Florajen3 Capsule) 1 each BID PO Last administered on 11/07/18at 20:28; Admin Dose 1 EACH; Start 11/06/18 at 21:00 Cefepime HCl 50 ml @ 100 mls/hr Q24H IVPB Last administered on 11/07/18at 16:05 ; Admin Dose 100 MLS/HR; Start 11/06/18 at 17:00 Collagenase (Santyl) 1 applic BID TOP Last administered on 11/07/18at 20:29; Admin Dose 1 APPLIC; Start 11/07/18 at 13:30 Ferric Sodium Gluconate Complex 125 mg/Sodium Chloride 100 ml @ 100 mls/hr DAILY@1300 IVPB ; Start 11/08/18 at 13:00; Stop 11/10/18 at 13:59 Allergies: Coded Allergies: No Known Allergies (Verified Allergy, Unknown, 11/05/18) Past Surgical History Past Surgical Hx: other Social History Alcohol Use: none Smoking Status: Former smoker Drug Use: none Exam/Review of Systems Exam Vitals Vital Signs Date Temp Pulse Resp B/P (MAP) Pulse Ox O2 O2 Flow FiO2 Time Delivery Rate 11/08/18 98.2 71 18 109/56 93 02:13 (73) 11/07/18 Room Air 02:07 Intake and Output 11/07/18 11/07/18 11/08/18 1515:00 23:00 07:00 IntakeIntake Total 200 ml 300 ml OutputOutput Total 2 ml 2 ml BalanceBalance 198 ml 298 ml Constitutional: alert Head: other (L occipital area open wound, no rita exposure, minimal surrounding redness, no drainage) Eyes: nl sclera ENMT: mucosa pink and moist Respiratory: clear to auscultation Cardiovascular: regular rate and rhythm Gastrointestinal: soft, other (slight RUQ tenderness) Results Result Diagram: 11/08/18 0448 11/08/18 0448 Results 24hrs Laboratory Tests Test 11/08/18 04:48 White Blood Count 9.3 Red Blood Count 4.20 L Hemoglobin 11.8 L Hematocrit 37.8 L Mean Corpuscular Volume 90.0 Mean Corpuscular Hemoglobin 28.1 L Mean Corpuscular Hemoglobin Concent 31.2 L Red Cell Distribution Width 17.1 H Platelet Count 238 Mean Platelet Volume 10.1 Immature Granulocytes % 0.600 H Neutrophils % 65.8 Lymphocytes % 19.2 Monocytes % 7.6 Eosinophils % 6.2 Basophils % 0.6 Nucleated Red Blood Cells % 0.0 Immature Granulocytes # 0.060 H Neutrophils # 6.1 Lymphocytes # 1.8 Monocytes # 0.7 Eosinophils # 0.6 H Basophils # 0.1 Nucleated Red Blood Cells # 0.0 Erythrocyte Sedimentation Rate 47 H Sodium Level 141 Potassium Level 4.4 Chloride Level 105 Carbon Dioxide Level 26 Anion Gap 10 Blood Urea Nitrogen 34 #H Creatinine 4.57 #H Est Glomerular Filtrat Rate mL/min 13 L Glucose Level 105 Calcium Level 8.6 C-Reactive Protein 4.3 H Medications Medication Current Medications Citalopram Hydrobromide (Celexa) 10 mg DAILY PO Last administered on 11/07/18at 10:01; Admin Dose 10 MG; Start 11/06/18 at 09:00 Finasteride (Proscar) 5 mg DAILY PO Last administered on 11/07/18at 10:01; Admin Dose 5 MG; Start 11/06/18 at 09:00 Methocarbamol (Robaxin) 750 mg Q6H PRN PO MUSCLE SPASMS; Start 11/05/18 at 23:30 Tamsulosin HCl (Flomax) 0.4 mg HS PO Last administered on 11/07/18at 20:28; Admin Dose 0.4 MG; Start 11/06/18 at 21:00 IV Flush (NS 3 ml) 3 ml PER PROTOCOL IV ; Start 11/05/18 at 23:30 Ondansetron HCl (Zofran Inj) 4 mg Q6H PRN IV NAUSEA/VOMITING; Start 11/05/18 at 23:30 Acetaminophen (Tylenol Tab) 650 mg Q6H PRN PO .PAIN 1-3 OR TEMP; Start 11/05/18 at 23:30 Acetaminophen/ Hydrocodone Bitart ([place] (5/325)) 1 tab Q6H PRN PO .MOD PAIN 4- 6 Last administered on 11/08/18at 00:55; Admin Dose 1 TAB; Start 11/05/18 at 23:30 Docusate Sodium (Colace) 100 mg Q12H PRN PO .CONSTIPATION; Start 11/05/18 at 23:30 Bisacodyl (Dulcolax) 5 mg DAILY PRN PO .CONSTIPATION; Start 11/05/18 at 23:30 Pantoprazole (Protonix Tab) 40 mg DAILY@06 PO Last administered on 11/08/18at 05:16; Admin Dose 40 MG; Start 11/06/18 at 06:00 Vancomycin HCl (Vanco Iv Per Pharmacy) VANCOMYCIN PER PHARMACY PER PROTOCOL XX ; Start 11/06/18 at 16:30 Lactobacillus Acidophilus (Florajen3 Capsule) 1 each BID PO Last administered on 11/07/18at 20:28; Admin Dose 1 EACH; Start 11/06/18 at 21:00 Cefepime HCl 50 ml @ 100 mls/hr Q24H IVPB Last administered on 11/07/18at 16:05; Admin Dose 100 MLS/HR; Start 11/06/18 at 17:00 Collagenase (Santyl) 1 applic BID TOP Last administered on 11/07/18at 20:29; Admin Dose 1 APPLIC; Start 11/07/18 at 13:30 Ferric Sodium Gluconate Complex 125 mg/Sodium Chloride 100 ml @ 100 mls/hr DAILY@1300 IVPB ; Start 11/08/18 at 13:00; Stop 11/10/18 at 13:59 ASHANTI VARELA MD November 08, 2018 07:53
[2018-11-08] MEDS: CEPHALEXIN 500 MG CAP PO SCH ×2 (09:00→23:20)
[2018-11-08] MEDS: L ACIDOPHIL/B LACTIS/B LONGUM CAPSULE PO SCH ×2 (09:11→23:20)
[2018-11-08] MEDS: CITALOPRAM 20 MG TAB PO SCH (09:11)
[2018-11-08] MEDS: DOXYCYCLINE 100 MG TAB PO SCH ×2 (09:11→23:20)
[2018-11-08] MEDS: FINASTERIDE 5 MG TAB PO SCH (09:11)
[2018-11-08] MEDS: COLLAGENASE 5 GM (UD JAR) TOP SCH ×2 (09:12→23:21)
--- NOTE | 2018-11-08 10:11 | CONS ---
Assessment/Plan Assessment/Plan Hospital Course (Demo Recall) # End-stage renal disease. The patient is on dialysis Sunday, Sunday and Sunday, access AV fistula. # Lower chronic back pain, with hx C7 and T1 fracture # Scalp wound #. Anemia. Monitor hemoglobin and hematocrit levels. #. Mineral bone disorder. Monitor calcium and phosphorus levels. # Hypertension, controlled # Benign prostatic hypertrophy. # Depression. # History of congestive heart failure > compensated # A. fib # hepatitis B # hx stroke: on plavix Diarrhoea > ro c diff Assessment/Plan (Daily) - HD tmw MWF, one today - mri head is reviewed, possible osteomyelitis with open wound -Continue Cymbalta. - c diff. pending -Phos and magnesium are normal - MRI c spine pending - c/w PT -wound care - IV Abx per ID - Renally dose all med s Consultation Date/Type/Reason Admit Date/Time November 07, 2018 at 08:30 Initial Consult Date 11/08/18 Type of Consult nephrology Date/Time of Note DATE: 11/08/18 TIME: 10:07 Exam/Review of Systems Exam Vitals Vital Signs Date Temp Pulse Resp B/P (MAP) Pulse Ox O2 O2 Flow FiO2 Time Delivery Rate 11/08/18 98.0 78 18 118/60 92 Room Air 08:32 (79) Intake and Output 11/07/18 11/07/18 11/08/18 1515:00 23:00 07:00 IntakeIntake Total 200 ml 300 ml OutputOutput Total 2 ml 2 ml BalanceBalance 198 ml 298 ml Exam left arm av fistula Constitutional: alert, oriented Eyes: nl conjunctiva Neck: supple Respiratory: clear to auscultation Cardiovascular: regular rate and rhythm Skin: other (scalp wound) Results Result Diagram: 11/08/18 0448 11/08/18 0448 Results 24hrs Laboratory Tests Test 11/08/18 04:48 White Blood Count 9.3 Red Blood Count 4.20 L Hemoglobin 11.8 L Hematocrit 37.8 L Mean Corpuscular Volume 90.0 Mean Corpuscular Hemoglobin 28.1 L Mean Corpuscular Hemoglobin Concent 31.2 L Red Cell Distribution Width 17.1 H Platelet Count 238 Mean Platelet Volume 10.1 Immature Granulocytes % 0.600 H Neutrophils % 65.8 Lymphocytes % 19.2 Monocytes % 7.6 Eosinophils % 6.2 Basophils % 0.6 Nucleated Red Blood Cells % 0.0 Immature Granulocytes # 0.060 H Neutrophils # 6.1 Lymphocytes # 1.8 Monocytes # 0.7 Eosinophils # 0.6 H Basophils # 0.1 Nucleated Red Blood Cells # 0.0 Erythrocyte Sedimentation Rate 47 H Sodium Level 141 Potassium Level 4.4 Chloride Level 105 Carbon Dioxide Level 26 Anion Gap 10 Blood Urea Nitrogen 34 #H Creatinine 4.57 #H Est Glomerular Filtrat Rate mL/min 13 L Glucose Level 105 Calcium Level 8.6 C-Reactive Protein 4.3 H Procalcitonin 0.40 H Medications Medication Current Medications Citalopram Hydrobromide (Celexa) 10 mg DAILY PO Last administered on 11/08/18at 09:11; Admin Dose 10 MG; Start 11/06/18 at 09:00 Finasteride (Proscar) 5 mg DAILY PO Last administered on 11/08/18at 09:11; Admin Dose 5 MG; Start 11/06/18 at 09:00 Methocarbamol (Robaxin) 750 mg Q6H PRN PO MUSCLE SPASMS; Start 11/05/18 at 23:30 Tamsulosin HCl (Flomax) 0.4 mg HS PO Last administered on 11/07/18at 20:28; Admin Dose 0.4 MG; Start 11/06/18 at 21:00 IV Flush (NS 3 ml) 3 ml PER PROTOCOL IV ; Start 11/05/18 at 23:30 Ondansetron HCl (Zofran Inj) 4 mg Q6H PRN IV NAUSEA/VOMITING; Start 11/05/18 at 23:30 Acetaminophen (Tylenol Tab) 650 mg Q6H PRN PO .PAIN 1-3 OR TEMP; Start 11/05/18 at 23:30 Acetaminophen/ Hydrocodone Bitart ([place] (5/325)) 1 tab Q6H PRN PO .MOD PAIN 4- 6 Last administered on 11/08/18at 00:55; Admin Dose 1 TAB; Start 11/05/18 at 23:30 Docusate Sodium (Colace) 100 mg Q12H PRN PO .CONSTIPATION; Start 11/05/18 at 23:30 Bisacodyl (Dulcolax) 5 mg DAILY PRN PO .CONSTIPATION; Start 11/05/18 at 23:30 Pantoprazole (Protonix Tab) 40 mg DAILY@06 PO Last administered on 11/08/18at 05:16; Admin Dose 40 MG; Start 11/06/18 at 06:00 Lactobacillus Acidophilus (Florajen3 Capsule) 1 each BID PO Last administered on 11/08/18at 09:11; Admin Dose 1 EACH; Start 11/06/18 at 21:00 Collagenase (Santyl) 1 applic BID TOP Last administered on 11/08/18at 09:12; Admin Dose 1 APPLIC; Start 11/07/18 at 13:30 Ferric Sodium Gluconate Complex 125 mg/Sodium Chloride 100 ml @ 100 mls/hr DAILY@1300 IVPB ; Start 11/08/18 at 13:00; Stop 11/10/18 at 13:59 Cephalexin (Keflex) 500 mg DAILY PO ; Start 11/08/18 at 09:00 Doxycycline Hyclate (Vibramycin) 100 mg BID PO Last administered on 11/08/18at 09:11; Admin Dose 100 MG; Start 11/08/18 at 09:00 GÓMEZ ARNDT November 08, 2018 10:11
[2018-11-08] MEDS: SOD FERRIC GLUC COMPLX 125 MG in SOD CHLORIDE 0.9% 100 ML IVPB SCH (12:20)
[2018-11-08] MEDS: VANCOMYCIN HCL 250 MG/5ML POSYG PO SCH ×2 (13:00→18:20)
--- NOTE | 2018-11-08 13:23 | CONS ---
Assessment/Plan Assessment/Plan Hospital Course (Demo Recall) Preoperative cardiac risk stratification Spinal fracture Possible osteomyelitis Preserved left ventricular ejection fraction End-stage renal disease on hemodialysis History of multiple CVAs Paroxysmal atrial fibrillation, not on anticoagulation Debilitated -Patient undergoing evaluation for possible spinal surgery. -ECG with no significant ischemic acute abnormalities, echocardiogram with p reserved ejection fraction -Given multiple risk factors, patient is an intermediate risk for any untoward cardiac events for surgery. Given patient with fracture and possible osteomyelitis as well, the benefits of surgery likely outweigh the cardiac risks Consultation Date/Type/Reason Admit Date/Time November 07, 2018 at 08:30 Type of Consult Cardiology Reason for Consultation Preoperative cardiac risk stratification Date/Time of Note DATE: 11/08/18 TIME: 13:14 Hx of Present Illness This is a 68-year-old male with past medical history of CVA and debility, end- stage renal disease on hemodialysis, hypertension who is undergoing evaluation for low back pain and possible osteomyelitis. I was asked to see the patient by the hospitalist for possible neurosurgery. Patient tells me he has been bedbound for a number of years. Denies any prior cardiac history or cardiac interventions. He denies shortness of breath with his therapy or activities. Denies any chest pain with activities. 12 point review of systems was performed with all pertinent positives and negatives mentioned above and all else is negative Past Medical History CVA End-stage renal disease on hemodialysis Hypertension Debility Home Meds Reported Medications Metoprolol Tartrate* (Lopressor*) 25 Mg Tab, 25 MG PO BID, #60 TAB HOLD FOR SBP<110 OR [place]<60 11/05/18 Methocarbamol* (Methocarbamol*) 750 Mg Tablet, 750 MG PO Q6H PRN for MUSCLE SP ASMS, TAB 11/05/18 Finasteride* (Finasteride*) 5 Mg Tablet, 5 MG PO DAILY, TAB 08/21/18 Citalopram Hydrobromide* (Citalopram Hydrobromide*) 10 Mg Tablet, 10 MG PO DAILY, #30 TAB 08/21/18 Omeprazole* (Omeprazole*) 20 Mg Capsule.dr, 20 MG PO DAILY, #30 CAP 08/21/18 Tamsulosin Hcl* (Tamsulosin Hcl*) 0.4 Mg Cap.er.24h, 0.4 MG PO HS, CAP 08/21/18 Clopidogrel Bisulfate* (Clopidogrel Bisulfate*) 75 Mg Tablet, 75 MG PO DAILY, #30 TAB 08/21/18 Discontinued Reported Medications Acetaminophen* (Tylenol*) 325 Mg Tablet, 325 MG PO NEEDED PRN for PAIN AND OR ELEVATED TEMP, TAB 08/21/18 Discontinued Scripts Metoprolol Tartrate* (Lopressor*) 25 Mg Tab, 25 MG PO BID, #60 TAB 2 Refills Prov:HEATHER METCALF. 08/22/18 Hydrocodone Bit-Acetaminophen (Hydrocodone Bit-APAP) 5-325MG Tablet, 1 TAB PO Q6H PRN for .MOD PAIN 4-6, #30 TAB Prov:HEATHER METCALF M. 08/22/18 Medications Current Medications Citalopram Hydrobromide (Celexa) 10 mg DAILY PO Last administered on 11/08/18at 09:11; Admin Dose 10 MG; Start 11/06/18 at 09:00 Finasteride (Proscar) 5 mg DAILY PO Last administered on 11/08/18at 09:11; Admin Dose 5 MG; Start 11/06/18 at 09:00 Methocarbamol (Robaxin) 750 mg Q6H PRN PO MUSCLE SPASMS; Start 11/05/18 at 23:30 Tamsulosin HCl (Flomax) 0.4 mg HS PO Last administered on 11/07/18at 20:28; Admin Dose 0.4 MG; Start 11/06/18 at 21:00 IV Flush (NS 3 ml) 3 ml PER PROTOCOL IV ; Start 11/05/18 at 23:30 Ondansetron HCl (Zofran Inj) 4 mg Q6H PRN IV NAUSEA/VOMITING; Start 11/05/18 at 23:30 Acetaminophen (Tylenol Tab) 650 mg Q6H PRN PO .PAIN 1-3 OR TEMP; Start 11/05/18 at 23:30 Acetaminophen/ Hydrocodone Bitart ([place] (5/325)) 1 tab Q6H PRN PO .MOD PAIN 4- 6 Last administered on 11/08/18at 00:55; Admin Dose 1 TAB; Start 11/05/18 at 23:30 Docusate Sodium (Colace) 100 mg Q12H PRN PO .CONSTIPATION; Start 11/05/18 at 23:30 Bisacodyl (Dulcolax) 5 mg DAILY PRN PO .CONSTIPATION; Start 11/05/18 at 23:30 Pantoprazole (Protonix Tab) 40 mg DAILY@06 PO Last administered on 11/08/18at 05:16; Admin Dose 40 MG; Start 11/06/18 at 06:00 Lactobacillus Acidophilus (Florajen3 Capsule) 1 each BID PO Last administered on 11/08/18at 09:11; Admin Dose 1 EACH; Start 11/06/18 at 21:00 Collagenase (Santyl) 1 applic BID TOP Last administered on 11/08/18at 09:12; Admin Dose 1 APPLIC; Start 11/07/18 at 13:30 Ferric Sodium Gluconate Complex 125 mg/Sodium Chloride 100 ml @ 100 mls/hr DAILY@1300 IVPB Last administered on 11/08/18at 12:20; Admin Dose 100 MLS/HR; Start 11/08/18 at 13:00; Stop 11/10/18 at 13:59 Cephalexin (Keflex) 500 mg DAILY PO ; Start 11/08/18 at 09:00 Doxycycline Hyclate (Vibramycin) 100 mg BID PO Last administered on 11/08/18at 09:11; Admin Dose 100 MG; Start 11/08/18 at 09:00 Vancomycin HCl (Vancomycin Oral Syringe) 125 mg Q6 PO Last administered on 11/08/18at 13:00; Admin Dose 125 MG; Start 11/08/18 at 12:00; Stop 11/18/18 at 11:59 Allergies: Coded Allergies: No Known Allergies (Verified Allergy, Unknown, 11/05/18) Past Surgical History Past Surgical Hx: other (Including but not limited to AV fistula) Social History Alcohol Use: none Smoking Status: Former smoker Drug Use: none Exam/Review of Systems Vital Signs Vitals Vital Signs Date Temp Pulse Resp B/P (MAP) Pulse Ox O2 O2 Flow FiO2 Time Delivery Rate 11/08/18 98.0 78 18 118/60 92 Room Air 08:32 (79) Intake and Output 11/07/18 11/07/18 11/08/18 1515:00 23:00 07:00 IntakeIntake Total 200 ml 300 ml OutputOutput Total 2 ml 2 ml BalanceBalance 198 ml 298 ml Exam Constitutional: alert, oriented Respiratory: other (Coarse breath sounds bilaterally, no wheezing) Cardiovascular: regular rate and rhythm, systolic murmur, other (S1-S2 heard) Gastrointestinal: soft, non-tender, bowel sounds Extremities: edema (Trace edema) Labs Result Diagram: 11/08/18 0448 11/08/18 0448 Results 24hrs Laboratory Tests Test 11/08/18 04:48 White Blood Count 9.3 Red Blood Count 4.20 L Hemoglobin 11.8 L Hematocrit 37.8 L Mean Corpuscular Volume 90.0 Mean Corpuscular Hemoglobin 28.1 L Mean Corpuscular Hemoglobin Concent 31.2 L Red Cell Distribution Width 17.1 H Platelet Count 238 Mean Platelet Volume 10.1 Immature Granulocytes % 0.600 H Neutrophils % 65.8 Lymphocytes % 19.2 Monocytes % 7.6 Eosinophils % 6.2 Basophils % 0.6 Nucleated Red Blood Cells % 0.0 Immature Granulocytes # 0.060 H Neutrophils # 6.1 Lymphocytes # 1.8 Monocytes # 0.7 Eosinophils # 0.6 H Basophils # 0.1 Nucleated Red Blood Cells # 0.0 Erythrocyte Sedimentation Rate 47 H Sodium Level 141 Potassium Level 4.4 Chloride Level 105 Carbon Dioxide Level 26 Anion Gap 10 Blood Urea Nitrogen 34 #H Creatinine 4.57 #H Est Glomerular Filtrat Rate mL/min 13 L Glucose Level 105 Calcium Level 8.6 C-Reactive Protein 4.3 H Procalcitonin 0.40 H Imaging Imaging ECG sinus rhythm 93 bpm, PACs, QRS 80 ms, nonspecific ST abnormalities Medications Medications Current Medications Citalopram Hydrobromide (Celexa) 10 mg DAILY PO Last administered on 11/08/18at 09:11; Admin Dose 10 MG; Start 11/06/18 at 09:00 Finasteride (Proscar) 5 mg DAILY PO Last administered on 11/08/18at 09:11; Admin Dose 5 MG; Start 11/06/18 at 09:00 Methocarbamol (Robaxin) 750 mg Q6H PRN PO MUSCLE SPASMS; Start 11/05/18 at 23:30 Tamsulosin HCl (Flomax) 0.4 mg HS PO Last administered on 11/07/18at 20:28; Admin Dose 0.4 MG; Start 11/06/18 at 21:00 IV Flush (NS 3 ml) 3 ml PER PROTOCOL IV ; Start 11/05/18 at 23:30 Ondansetron HCl (Zofran Inj) 4 mg Q6H PRN IV NAUSEA/VOMITING; Start 11/05/18 at 23:30 Acetaminophen (Tylenol Tab) 650 mg Q6H PRN PO .PAIN 1-3 OR TEMP; Start 11/05/18 at 23:30 Acetaminophen/ Hydrocodone Bitart ([place] (5/325)) 1 tab Q6H PRN PO .MOD PAIN 4- 6 Last administered on 11/08/18at 00:55; Admin Dose 1 TAB; Start 11/05/18 at 23:30 Docusate Sodium (Colace) 100 mg Q12H PRN PO .CONSTIPATION; Start 11/05/18 at 23:30 Bisacodyl (Dulcolax) 5 mg DAILY PRN PO .CONSTIPATION; Start 11/05/18 at 23:30 Pantoprazole (Protonix Tab) 40 mg DAILY@06 PO Last administered on 11/08/18 05:16; Admin Dose 40 MG; Start 11/06/18 at 06:00 Lactobacillus Acidophilus (Florajen3 Capsule) 1 each BID PO Last administered on 11/08/18 09:11; Admin Dose 1 EACH; Start 11/06/18 at 21:00 Collagenase (Santyl) 1 applic BID TOP Last administered on 11/08/18 09:12; Admin Dose 1 APPLIC; Start 11/07/18 at 13:30 Ferric Sodium Gluconate Complex 125 mg/Sodium Chloride 100 ml @ 100 mls/hr DAILY@1300 IVPB Last administered on 11/08/18 12:20; Admin Dose 100 MLS/HR; Start 11/08/18 at 13:00; Stop 11/10/18 at 13:59 Cephalexin (Keflex) 500 mg DAILY PO ; Start 11/08/18 at 09:00 Doxycycline Hyclate (Vibramycin) 100 mg BID PO Last administered on 11/08/18 09:11; Admin Dose 100 MG; Start 11/08/18 at 09:00 Vancomycin HCl (Vancomycin Oral Syringe) 125 mg Q6 PO Last administered on 11/08/18at 13:00; Admin Dose 125 MG; Start 11/08/18 at 12:00; Stop 11/18/18 at 11:59 Yang Cook DO November 08, 2018 13:23
--- NOTE | 2018-11-08 14:36 | CONS ---
Assessment/Plan Assessment/Plan Assessment/Plan (Daily) Diagnosis 1) Subaxial cervical fracture 2) Cervical stenosis Mr. Mcrae is a 68 year old male with an intermediate risk for surgery who has a non-fused fracture at C7/T1 and is non-compliant with his brace. His family would tentatively like to proceed with surgery. I will plan for a C5-T2 fusion with C6-7 laminectomies. I will try to schedule surgery for Sunday or Sunday. Please hold ASA and plavix for now. Will give platelets and DDAVP on the day of surgery Consultation Date/Type/Reason Admit Date/Time November 07, 2018 at 08:30 Date of Consultation: November 08, 2018 Type of Consult Neurosurgery Reason for Consultation cervical spine fracture Date/Time of Note DATE: 11/08/18 TIME: 14:29 Hx of Present Illness 68 year old male with ESRD on dialysis and history of strokes who had a fall in August with a 3 column fracture at C7/T1. He has been using a CTLSO for conservative management, but the family noted difficulty with getting him to wear it at his SNF. He has also had skin breakdown and infection over the back of his scalp. He was reported to have weakness, but denies it. Past Medical History Home Meds Reported Medications Metoprolol Tartrate* (Lopressor*) 25 Mg Tab, 25 MG PO BID, #60 TAB HOLD FOR SBP<110 OR [place]<60 11/05/18 Methocarbamol* (Methocarbamol*) 750 Mg Tablet, 750 MG PO Q6H PRN for MUSCLE SPASMS, TAB 11/05/18 Finasteride* (Finasteride*) 5 Mg Tablet, 5 MG PO DAILY, TAB 08/21/18 Citalopram Hydrobromide* (Citalopram Hydrobromide*) 10 Mg Tablet, 10 MG PO DAILY, #30 TAB 08/21/18 Omeprazole* (Omeprazole*) 20 Mg Capsule.dr, 20 MG PO DAILY, #30 CAP 08/21/18 Tamsulosin Hcl* (Tamsulosin Hcl*) 0.4 Mg Cap.er.24h, 0.4 MG PO HS, CAP 08/21/18 Clopidogrel Bisulfate* (Clopidogrel Bisulfate*) 75 Mg Tablet, 75 MG PO DAILY, #30 TAB 08/21/18 Discontinued Reported Medications Acetaminophen* (Tylenol*) 325 Mg Tablet, 325 MG PO NEEDED PRN for PAIN AND OR ELEVATED TEMP, TAB 08/21/18 Discontinued Scripts Metoprolol Tartrate* (Lopressor*) 25 Mg Tab, 25 MG PO BID, #60 TAB 2 Refills Prov:HEATHER METCALF. 08/22/18 Hydrocodone Bit-Acetaminophen (Hydrocodone Bit-APAP) 5-325MG Tablet, 1 TAB PO Q6H PRN for .MOD PAIN 4-6, #30 TAB Prov:HEATHER METCALF. 08/22/18 Medications Current Medications Citalopram Hydrobromide (Celexa) 10 mg DAILY PO Last administered on 11/08/18at 09:11; Admin Dose 10 MG; Start 11/06/18 at 09:00 Finasteride (Proscar) 5 mg DAILY PO Last administered on 11/08/18at 09:11; Admin Dose 5 MG; Start 11/06/18 at 09:00 Methocarbamol (Robaxin) 750 mg Q6H PRN PO MUSCLE SPASMS; Start 11/05/18 at 23:30 Tamsulosin HCl (Flomax) 0.4 mg HS PO Last administered on 11/07/18at 20:28; Admin Dose 0.4 MG; Start 11/06/18 at 21:00 IV Flush (NS 3 ml) 3 ml PER PROTOCOL IV ; Start 11/05/18 at 23:30 Ondansetron HCl (Zofran Inj) 4 mg Q6H PRN IV NAUSEA/VOMITING; Start 11/05/18 at 23:30 Acetaminophen (Tylenol Tab) 650 mg Q6H PRN PO .PAIN 1-3 OR TEMP; Start 11/05/18 at 23:30 Acetaminophen/ Hydrocodone Bitart ([place] (5/325)) 1 tab Q6H PRN PO .MOD PAIN 4- 6 Last administered on 11/08/18at 00:55; Admin Dose 1 TAB; Start 11/05/18 at 23:30 Docusate Sodium (Colace) 100 mg Q12H PRN PO .CONSTIPATION; Start 11/05/18 at 23:30 Bisacodyl (Dulcolax) 5 mg DAILY PRN PO .CONSTIPATION; Start 11/05/18 at 23:30 Pantoprazole (Protonix Tab) 40 mg DAILY@06 PO Last administered on 11/08/18at 05:16; Admin Dose 40 MG; Start 11/06/18 at 06:00 Lactobacillus Acidophilus (Florajen3 Capsule) 1 each BID PO Last administered on 11/08/18at 09:11; Admin Dose 1 EACH; Start 11/06/18 at 21:00 Collagenase (Santyl) 1 applic BID TOP Last administered on 11/08/18at 09:12; Admin Dose 1 APPLIC; Start 11/07/18 at 13:30 Ferric Sodium Gluconate Complex 125 mg/Sodium Chloride 100 ml @ 100 mls/hr DAILY@1300 IVPB Last administered on 11/08/18at 12:20; Admin Dose 100 MLS/HR; Start 11/08/18 at 13:00; Stop 11/10/18 at 13:59 Cephalexin (Keflex) 500 mg DAILY PO ; Start 11/08/18 at 09:00 Doxycycline Hyclate (Vibramycin) 100 mg BID PO Last administered on 11/08/18at 09:11; Admin Dose 100 MG; Start 11/08/18 at 09:00 Vancomycin HCl (Vancomycin Oral Syringe) 125 mg Q6 PO Last administered on 11/08/18at 13:00; Admin Dose 125 MG; Start 11/08/18 at 12:00; Stop 11/18/18 at 11:59 Allergies: Coded Allergies: No Known Allergies (Verified Allergy, Unknown, 11/05/18) Past Surgical History Past Surgical Hx: other (Including but not limited to AV fistula) Social History Alcohol Use: none Smoking Status: Former smoker Drug Use: none Exam/Review of Systems Exam Vitals Vital Signs Date Temp Pulse Resp B/P (MAP) Pulse Ox O2 O2 Flow FiO2 Time Delivery Rate 11/08/18 98.0 78 18 118/60 92 Room Air 08:32 (79) Intake and Output 11/07/18 11/07/18 11/08/18 1414:59 22:59 06:59 IntakeIntake Total 200 ml 300 ml OutputOutput Total 2 ml 2 ml BalanceBalance 198 ml 298 ml Exam Full strength. Has intermittent RUE numbness. Small area of infection over suboc ciput. Results Result Diagram: 11/08/18 0448 11/08/18 0448 Results 24hrs Laboratory Tests Test 11/08/18 04:48 White Blood Count 9.3 Red Blood Count 4.20 L Hemoglobin 11.8 L Hematocrit 37.8 L Mean Corpuscular Volume 90.0 Mean Corpuscular Hemoglobin 28.1 L Mean Corpuscular Hemoglobin Concent 31.2 L Red Cell Distribution Width 17.1 H Platelet Count 238 Mean Platelet Volume 10.1 Immature Granulocytes % 0.600 H Neutrophils % 65.8 Lymphocytes % 19.2 Monocytes % 7.6 Eosinophils % 6.2 Basophils % 0.6 Nucleated Red Blood Cells % 0.0 Immature Granulocytes # 0.060 H Neutrophils # 6.1 Lymphocytes # 1.8 Monocytes # 0.7 Eosinophils # 0.6 H Basophils # 0.1 Nucleated Red Blood Cells # 0.0 Erythrocyte Sedimentation Rate 47 H Sodium Level 141 Potassium Level 4.4 Chloride Level 105 Carbon Dioxide Level 26 Anion Gap 10 Blood Urea Nitrogen 34 #H Creatinine 4.57 #H Est Glomerular Filtrat Rate mL/min 13 L Glucose Level 105 Calcium Level 8.6 C-Reactive Protein 4.3 H Procalcitonin 0.40 H Imaging Imaging Stable C7/T1 fracture with disc disruption. There is growing ligamentous change at C6-7 causing mild compression. Medications Medication Current Medications Citalopram Hydrobromide (Celexa) 10 mg DAILY PO Last administered on 11/08/18at 09:11; Admin Dose 10 MG; Start 11/06/18 at 09:00 Finasteride (Proscar) 5 mg DAILY PO Last administered on 11/08/18at 09:11; Admin Dose 5 MG; Start 11/06/18 at 09:00 Methocarbamol (Robaxin) 750 mg Q6H PRN PO MUSCLE SPASMS; Start 11/05/18 at 23:30 Tamsulosin HCl (Flomax) 0.4 mg HS PO Last administered on 11/07/18at 20:28; Admin Dose 0.4 MG; Start 11/06/18 at 21:00 IV Flush (NS 3 ml) 3 ml PER PROTOCOL IV ; Start 11/05/18 at 23:30 Ondansetron HCl (Zofran Inj) 4 mg Q6H PRN IV NAUSEA/VOMITING; Start 11/05/18 at 23:30 Acetaminophen (Tylenol Tab) 650 mg Q6H PRN PO .PAIN 1-3 OR TEMP; Start 11/05/18 at 23:30 Acetaminophen/ Hydrocodone Bitart ([place] (5/325)) 1 tab Q6H PRN PO .MOD PAIN 4- 6 Last administered on 11/08/18at 00:55; Admin Dose 1 TAB; Start 11/05/18 at 23:30 Docusate Sodium (Colace) 100 mg Q12H PRN PO .CONSTIPATION; Start 11/05/18 at 23:30 Bisacodyl (Dulcolax) 5 mg DAILY PRN PO .CONSTIPATION; Start 11/05/18 at 23:30 Pantoprazole (Protonix Tab) 40 mg DAILY@06 PO Last administered on 11/08/18at 05:16; Admin Dose 40 MG; Start 11/06/18 at 06:00 Lactobacillus Acidophilus (Florajen3 Capsule) 1 each BID PO Last administered on 11/08/18 09:11; Admin Dose 1 EACH; Start 11/06/18 at 21:00 Collagenase (Santyl) 1 applic BID TOP Last administered on 11/08/18 09:12; Admin Dose 1 APPLIC; Start 11/07/18 at 13:30 Ferric Sodium Gluconate Complex 125 mg/Sodium Chloride 100 ml @ 100 mls/hr DAILY@1300 IVPB Last administered on 11/08/18at 12:20; Admin Dose 100 MLS/HR; Start 11/08/18 at 13:00; Stop 11/10/18 at 13:59 Cephalexin (Keflex) 500 mg DAILY PO ; Start 11/08/18 at 09:00 Doxycycline Hyclate (Vibramycin) 100 mg BID PO Last administered on 11/08/18at 09:11; Admin Dose 100 MG; Start 11/08/18 at 09:00 Vancomycin HCl (Vancomycin Oral Syringe) 125 mg Q6 PO Last administered on 11/08/18at 13:00; Admin Dose 125 MG; Start 11/08/18 at 12:00; Stop 11/18/18 at 11:59 KEY MONAHAN MD November 08, 2018 14:36
--- NOTE | 2018-11-08 14:55 | PN ---
Date/Time of Note Date/Time of Note DATE: 11/08/18 TIME: 14:50 Assessment/Plan VTE Prophylaxis Risk score (from Ns)>0 risk: 4 SCD applied (from Ns): Yes Pharmacological prophylaxis: NA/contraindicated Pharm contraindication: hemorrhagic infarct Lines/Catheters IV Catheter Type (from Nrs): Saline Lock Urinary Cath still in place: No Assessment/Plan Hospital Course S: no new complaints, PT notes reviewed, MRI C-spine also reviewed, -Nursing reports no acute overnight events. -still with occasional diarrhea Objective : Constitutional: alert, oriented, looks older than stated age, conversant, lying flat in the bed Head: occipital ulcer otherwise normocephalic Respiratory: clear to auscultation, but diminished bilaterally Cardiovascular: irregularly irregular, no murmurs Gastrointestinal: S/ NT / ND / +BS Extremities: no edema assessment and plan: 68-year-old chronically debilitated male who looks older than his stated age who was brought in from home but had recently been at senior care facility because of severe back pain and his family's inability to care for him. He is currently managed as follows: 1. Back pain, chronic ? with worsening debility and known C7 / [id number] fr acture from August 2018 -Patient is currently complaining of lower back pain, not pain in his neck h owever patient was able to ambulate after C-spine fracture and has lost that ability at this time. -MRI C-spine reviewed and still shows fracture and ligamental injury with worsening -Appreciate neurosurgical input in mgt of this patient -patient being considered for spinal fusion surgery if patient and family amenable -divina need surgical clearance, cardio consult obtained 2. Decubitus ulcer on the back of the skull, -likely secondary to lying in bed, per family patient developed this at senior care facility where he was sent after C-spine injury -MRI concerning for possible Osteo, but ID doubtful, planned for bonescan today to confirm -cultures growing staph and montse -ID managing abx -continue wound care, no need for debridement at this time -wound care nurses following 3. End-stage renal disease on hemodialysis: -Patient maintained on routine HD per nephro, appreciate input 4. Fluid overload versus Pna -will order f/u CXR -abx deesca;ated per ID -maintained on ultrafiltration with HD -echo with preserved EF and stage 1 DD 5. 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 6. Chronic depression -Patient has a history of this condition. No acute issues so far on this admission. 9. Paroxysmal atrial fibrillation -not a candidate for anticoagulation -rate controlled 9. Chronic normocytic anemia: Stable 10. C diff colitis -start 10 days of PO vanc for 1st incident -contact precautions Further interventions per clinical course Result Diagram: 11/08/1844711/08/188 Results 24hrs Laboratory Tests Test 11/08/18 04:48 White Blood Count 9.3 Red Blood Count 4.20 L Hemoglobin 11.8 L Hematocrit 37.8 L Mean Corpuscular Volume 90.0 Mean Corpuscular Hemoglobin 28.1 L Mean Corpuscular Hemoglobin Concent 31.2 L Red Cell Distribution Width 17.1 H Platelet Count 238 Mean Platelet Volume 10.1 Immature Granulocytes % 0.600 H Neutrophils % 65.8 Lymphocytes % 19.2 Monocytes % 7.6 Eosinophils % 6.2 Basophils % 0.6 Nucleated Red Blood Cells % 0.0 Immature Granulocytes # 0.060 H Neutrophils # 6.1 Lymphocytes # 1.8 Monocytes # 0.7 Eosinophils # 0.6 H Basophils # 0.1 Nucleated Red Blood Cells # 0.0 Erythrocyte Sedimentation Rate 47 H Sodium Level 141 Potassium Level 4.4 Chloride Level 105 Carbon Dioxide Level 26 Anion Gap 10 Blood Urea Nitrogen 34 #H Creatinine 4.57 #H Est Glomerular Filtrat Rate mL/min 13 L Glucose Level 105 Calcium Level 8.6 C-Reactive Protein 4.3 H Procalcitonin 0.40 H Exam/Review of Systems Exam Vitals Vital Signs Date Temp Pulse Resp B/P (MAP) Pulse Ox O2 O2 Flow FiO2 Time Delivery Rate 11/08/18 98.0 78 18 118/60 92 Room Air 08:32 (79) Intake and Output 11/07/18 11/07/18 11/08/18 1515:00 23:00 07:00 IntakeIntake Total 200 ml 300 ml OutputOutput Total 2 ml 2 ml BalanceBalance 198 ml 298 ml Results Results 24hrs Laboratory Tests Test 11/08/18 04:48 White Blood Count 9.3 Red Blood Count 4.20 L Hemoglobin 11.8 L Hematocrit 37.8 L Mean Corpuscular Volume 90.0 Mean Corpuscular Hemoglobin 28.1 L Mean Corpuscular Hemoglobin Concent 31.2 L Red Cell Distribution Width 17.1 H Platelet Count 238 Mean Platelet Volume 10.1 Immature Granulocytes % 0.600 H Neutrophils % 65.8 Lymphocytes % 19.2 Monocytes % 7.6 Eosinophils % 6.2 Basophils % 0.6 Nucleated Red Blood Cells % 0.0 Immature Granulocytes # 0.060 H Neutrophils # 6.1 Lymphocytes # 1.8 Monocytes # 0.7 Eosinophils # 0.6 H Basophils # 0.1 Nucleated Red Blood Cells # 0.0 Erythrocyte Sedimentation Rate 47 H Sodium Level 141 Potassium Level 4.4 Chloride Level 105 Carbon Dioxide Level 26 Anion Gap 10 Blood Urea Nitrogen 34 #H Creatinine 4.57 #H Est Glomerular Filtrat Rate mL/min 13 L Glucose Level 105 Calcium Level 8.6 C-Reactive Protein 4.3 H Procalcitonin 0.40 H Medications Medication Current Medications Citalopram Hydrobromide (Celexa) 10 mg DAILY PO Last administered on 11/08/18at 09:11; Admin Dose 10 MG; Start 11/06/18 at 09:00 Finasteride (Proscar) 5 mg DAILY PO Last administered on 11/08/18at 09:11; Admin Dose 5 MG; Start 11/06/18 at 09:00 Methocarbamol (Robaxin) 750 mg Q6H PRN PO MUSCLE SPASMS; Start 11/05/18 at 23:30 Tamsulosin HCl (Flomax) 0.4 mg HS PO Last administered on 11/07/18at 20:28; Admin Dose 0.4 MG; Start 11/06/18 at 21:00 IV Flush (NS 3 ml) 3 ml PER PROTOCOL IV ; Start 11/05/18 at 23:30 Ondansetron HCl (Zofran Inj) 4 mg Q6H PRN IV NAUSEA/VOMITING; Start 11/05/18 at 23:30 Acetaminophen (Tylenol Tab) 650 mg Q6H PRN PO .PAIN 1-3 OR TEMP; Start 11/05/18 at 23:30 Acetaminophen/ Hydrocodone Bitart ([place] (5/325)) 1 tab Q6H PRN PO .MOD PAIN 4- 6 Last administered on 11/08/18 00:55; Admin Dose 1 TAB; Start 11/05/18 at 23:30 Docusate Sodium (Colace) 100 mg Q12H PRN PO .CONSTIPATION; Start 11/05/18 at 23:30 Bisacodyl (Dulcolax) 5 mg DAILY PRN PO .CONSTIPATION; Start 11/05/18 at 23:30 Pantoprazole (Protonix Tab) 40 mg DAILY@06 PO Last administered on 11/08/18at 05:16; Admin Dose 40 MG; Start 11/06/18 at 06:00 Lactobacillus Acidophilus (Florajen3 Capsule) 1 each BID PO Last administered on 11/08/18 09:11; Admin Dose 1 EACH; Start 11/06/18 at 21:00 Collagenase (Santyl) 1 applic BID TOP Last administered on 11/08/18 09:12; Admin Dose 1 APPLIC; Start 11/07/18 at 13:30 Ferric Sodium Gluconate Complex 125 mg/Sodium Chloride 100 ml @ 100 mls/hr DAILY@1300 IVPB Last administered on 11/08/18at 12:20; Admin Dose 100 MLS/HR; Start 11/08/18 at 13:00; Stop 11/10/18 at 13:59 Cephalexin (Keflex) 500 mg DAILY PO ; Start 11/08/18 at 09:00 Doxycycline Hyclate (Vibramycin) 100 mg BID PO Last administered on 11/08/18 09:11; Admin Dose 100 MG; Start 11/08/18 at 09:00 Vancomycin HCl (Vancomycin Oral Syringe) 125 mg Q6 PO Last administered on 11/08/18at 13:00; Admin Dose 125 MG; Start 11/08/18 at 12:00; Stop 11/18/18 at 11:59 HEATHER METCALF November 08, 2018 14:55
[2018-11-08] MEDS: TAMSULOSIN (SR) 0.4 MG CAP PO SCH (23:20)
[2018-11-09] MEDS: VANCOMYCIN HCL 250 MG/5ML POSYG PO SCH ×4 (00:10→17:17)
[2018-11-09] MEDS: METHOCARBAMOL 750 MG TAB PO PRN (01:56)
[2018-11-09 02:15] VITALS: BP 138/86; PULSE 100; RESP 18
[2018-11-09] MEDS: ACETAMINOPHEN 325 MG TAB PO PRN (04:16)
[2018-11-09] MEDS: PANTOPRAZOLE (EC) 40 MG TAB PO SCH (06:06)
--- NOTE | 2018-11-09 07:18 | CONS ---
Assessment/Plan Assessment/Plan Hospital Course (Demo Recall) 1) L occipital scalp wound with probably osteo ESR and CRP are not very elevated MRI suggests osteo but could be reactive to surface infection I will order bone scan scalp cx grew only c.alb which is very unlikely to be significant change vanco/cefepime to doxy/keflex if bone scan is neg then continue doxy/keflex thru 11/20 11/09 - bone scan was positive to same site as MRI scalp wound has grown MRSA d/c doxy/keflex and start again IV vanco with rifampin, continue both for 4-6 weeks pt ideally should get vanco with dialysis 2) ESRD 3) diarrhea (c.dif positive) c.dif has been ordered pt is on probiotics 11/09 - c.dif was positive po vanco has been started IV vanco and po rifampin are unlikely to exacerbate his c.dif 4)BPH 5) hx of CVA with L sided weakness 6) paroxysmal a-fib plavix was stopped Consultation Date/Type/Reason Admit Date/Time November 07, 2018 at 08:30 Initial Consult Date 11/08/18 Type of Consult ID Date/Time of Note DATE: 11/09/18 TIME: 07:14 24 HR Interval Summary Free Text/Dictation pt had two loose stools overnight no N, V spoke to nurse Exam/Review of Systems Exam Vitals Vital Signs Date Temp Pulse Resp B/P (MAP) Pulse Ox O2 O2 Flow FiO2 Time Delivery Rate 11/09/18 97.2 100 18 138/86 95 02:15 (103) 11/08/18 Room Air 22:30 Intake and Output 11/08/18 11/08/18 11/09/18 1515:00 23:00 07:00 IntakeIntake Total 340 ml 480 ml OutputOutput Total 958 ml BalanceBalance 340 ml -478 ml Respiratory: clear to auscultation Cardiovascular: regular rate and rhythm Gastrointestinal: soft, non-tender Results Result Diagram: 11/09/189 11/09/18448 Results 24hrs Laboratory Tests Test 11/09/18 04:49 White Blood Count 9.8 Red Blood Count 4.37 L Hemoglobin 12.0 L Hematocrit 38.5 L Mean Corpuscular Volume 88.1 Mean Corpuscular Hemoglobin 27.5 L Mean Corpuscular Hemoglobin Concent 31.2 L Red Cell Distribution Width 17.1 H Platelet Count 261 Mean Platelet Volume 10.3 Immature Granulocytes % 0.500 H Neutrophils % 76.5 Lymphocytes % 11.5 L Monocytes % 6.5 Eosinophils % 4.3 Basophils % 0.7 Nucleated Red Blood Cells % 0.0 Immature Granulocytes # 0.050 H Neutrophils # 7.5 Lymphocytes # 1.1 Monocytes # 0.6 Eosinophils # 0.4 Basophils # 0.1 Nucleated Red Blood Cells # 0.0 Sodium Level 140 Potassium Level 3.9 Chloride Level 104 Carbon Dioxide Level 25 Anion Gap 11 Blood Urea Nitrogen 30 H Creatinine 4.57 H Est Glomerular Filtrat Rate mL/min 13 L Glucose Level 123 Calcium Level 8.9 Medications Medication Current Medications Citalopram Hydrobromide (Celexa) 10 mg DAILY PO Last administered on 11/08/18 09:11; Admin Dose 10 MG; Start 11/06/18 at 09:00 Finasteride (Proscar) 5 mg DAILY PO Last administered on 11/08/18 09:11; Admin Dose 5 MG; Start 11/06/18 at 09:00 Methocarbamol (Robaxin) 750 mg Q6H PRN PO MUSCLE SPASMS Last administered on 11/09/18 01:56; Admin Dose 750 MG; Start 11/05/18 at 23:30 Tamsulosin HCl (Flomax) 0.4 mg HS PO Last administered on 11/08/18 23:20; Admin Dose 0.4 MG; Start 11/06/18 at 21:00 IV Flush (NS 3 ml) 3 ml PER PROTOCOL IV ; Start 11/05/18 at 23:30 Ondansetron HCl (Zofran Inj) 4 mg Q6H PRN IV NAUSEA/VOMITING; Start 11/05/18 at 23:30 Acetaminophen (Tylenol Tab) 650 mg Q6H PRN PO .PAIN 1-3 OR TEMP Last administered on 11/09/18 04:16; Admin Dose 650 MG; Start 11/05/18 at 23:30 Acetaminophen/ Hydrocodone Bitart ([place] (5/325)) 1 tab Q6H PRN PO .MOD PAIN 4- 6 Last administered on 11/08/18 23:21; Admin Dose 1 TAB; Start 11/05/18 at 23:30 Docusate Sodium (Colace) 100 mg Q12H PRN PO .CONSTIPATION; Start 11/05/18 at 23:30 Bisacodyl (Dulcolax) 5 mg DAILY PRN PO .CONSTIPATION; Start 11/05/18 at 23:30 Pantoprazole (Protonix Tab) 40 mg DAILY@06 PO Last administered on 11/09/18 06:06; Admin Dose 40 MG; Start 11/06/18 at 06:00 Lactobacillus Acidophilus (Florajen3 Capsule) 1 each BID PO Last administered on 11/08/18at 23:20; Admin Dose 1 EACH; Start 11/06/18 at 21:00 Collagenase (Santyl) 1 applic BID TOP Last administered on 11/08/18 23:21; Admin Dose 1 APPLIC; Start 11/07/18 at 13:30 Ferric Sodium Gluconate Complex 125 mg/Sodium Chloride 100 ml @ 100 mls/hr DAILY@1300 IVPB Last administered on 11/08/18 12:20; Admin Dose 100 MLS/HR; Start 11/08/18 at 13:00; Stop 11/10/18 at 13:59 Cephalexin (Keflex) 500 mg DAILY PO Last administered on 11/08/18at 23:20; Admin Dose 500 MG; Start 11/08/18 at 09:00 Doxycycline Hyclate (Vibramycin) 100 mg BID PO Last administered on 11/08/18at 2 3:20; Admin Dose 100 MG; Start 11/08/18 at 09:00 Vancomycin HCl (Vancomycin Oral Syringe) 125 mg Q6 PO Last administered on 11/09/18 06:06; Admin Dose 125 MG; Start 11/08/18 at 12:00; Stop 11/18/18 at 11:59 ASHANTI VARELA MD Nov 09, 2018 07:17
[2018-11-09] MEDS ORDERED: VANCOMYCIN IV PER PHARMACY XX SCH (07:30)
[2018-11-09 07:40] VITALS: BP 138/86; PULSE 106; RESP 18
[2018-11-09] MEDS: HYDROCODONE/APAP (5/325) TAB PO PRN ×2 (07:45→17:17)
[2018-11-09] MEDS: FINASTERIDE 5 MG TAB PO SCH (08:57)
[2018-11-09] MEDS: CITALOPRAM 20 MG TAB PO SCH (08:57)
[2018-11-09] MEDS: L ACIDOPHIL/B LACTIS/B LONGUM CAPSULE PO SCH ×2 (08:57→21:38)
[2018-11-09] MEDS: COLLAGENASE 5 GM (UD JAR) TOP SCH ×2 (08:57→21:39)
[2018-11-09] MEDS: RIFAMPIN 300 MG CAP PO SCH (09:57)
--- NOTE | 2018-11-09 10:01 | CONS ---
Assessment/Plan Assessment/Plan Hospital Course (Demo Recall) # End-stage renal disease. The patient is on dialysis Sunday, Sunday and Sunday, access AV fistula. # Lower chronic back pain, with hx C7 and T1 fracture # Scalp wound #. Anemia. Monitor hemoglobin and hematocrit levels. #. Mineral bone disorder. Monitor calcium and phosphorus levels. # Hypertension, controlled # Benign prostatic hypertrophy. # Depression. # History of congestive heart failure > compensated # A. fib # hepatitis B # hx stroke: on plavix Diarrhoea > ro c diff Assessment/Plan (Daily) - HD MWF, - MRI head is reviewed, possible osteomyelitis with open wound -Continue Cymbalta. -MRSA wound pos. - c diff. positive -Phos and magnesium are normal - c/w PT -wound care - IV Abx per ID - Renally dose all med s Consultation Date/Type/Reason Admit Date/Time November 07, 2018 at 08:30 Initial Consult Date 11/08/18 Type of Consult nephrology Date/Time of Note DATE: 11/09/18 TIME: 10:00 24 HR Interval Summary Free Text/Dictation cushion on head is uncomfortable Exam/Review of Systems Exam Vitals Vital Signs Date Temp Pulse Resp B/P (MAP) Pulse Ox O2 O2 Flow FiO2 Time Delivery Rate 11/09/18 98.3 106 18 138/86 96 07:40 (103) 11/08/18 Room Air 22:30 Intake and Output 11/08/18 11/08/18 11/09/18 1515:00 23:00 07:00 IntakeIntake Total 340 ml 480 ml OutputOutput Total 958 ml BalanceBalance 340 ml -478 ml Exam left arm AV fistula Constitutional: alert, oriented Head: other (wound) Neck: supple Respiratory: clear to auscultation Cardiovascular: regular rate and rhythm Gastrointestinal: soft Results Result Diagram: 11/09/1844811/09/18448 Results 24hrs Laboratory Tests Test 11/09/18 04:45 11/09/18 04:49 Random Vancomycin Level 19.1 White Blood Count 9.8 Red Blood Count 4.37 L Hemoglobin 12.0 L Hematocrit 38.5 L Mean Corpuscular Volume 88.1 Mean Corpuscular Hemoglobin 27.5 L Mean Corpuscular Hemoglobin Concent 31.2 L Red Cell Distribution Width 17.1 H Platelet Count 261 Mean Platelet Volume 10.3 Immature Granulocytes % 0.500 H Neutrophils % 76.5 Lymphocytes % 11.5 L Monocytes % 6.5 Eosinophils % 4.3 Basophils % 0.7 Nucleated Red Blood Cells % 0.0 Immature Granulocytes # 0.050 H Neutrophils # 7.5 Lymphocytes # 1.1 Monocytes # 0.6 Eosinophils # 0.4 Basophils # 0.1 Nucleated Red Blood Cells # 0.0 Sodium Level 140 Potassium Level 3.9 Chloride Level 104 Carbon Dioxide Level 25 Anion Gap 11 Blood Urea Nitrogen 30 H Creatinine 4.57 H Est Glomerular Filtrat Rate mL/min 13 L Glucose Level 123 Calcium Level 8.9 Medications Medication Current Medications Citalopram Hydrobromide (Celexa) 10 mg DAILY PO Last administered on 11/09/18 08:57; Admin Dose 10 MG; Start 11/06/18 at 09:00 Finasteride (Proscar) 5 mg DAILY PO Last administered on 11/09/18 08:57; Admin Dose 5 MG; Start 11/06/18 at 09:00 Methocarbamol (Robaxin) 750 mg Q6H PRN PO MUSCLE SPASMS Last administered on 11/09/18 01:56; Admin Dose 750 MG; Start 11/05/18 at 23:30 Tamsulosin HCl (Flomax) 0.4 mg HS PO Last administered on 11/08/18at 23:20; Admin Dose 0.4 MG; Start 11/06/18 at 21:00 IV Flush (NS 3 ml) 3 ml PER PROTOCOL IV ; Start 11/05/18 at 23:30 Ondansetron HCl (Zofran Inj) 4 mg Q6H PRN IV NAUSEA/VOMITING; Start 11/05/18 at 23:30 Acetaminophen (Tylenol Tab) 650 mg Q6H PRN PO .PAIN 1-3 OR TEMP Last administered on 11/09/18 04:16; Admin Dose 650 MG; Start 11/05/18 at 23:30 Acetaminophen/ Hydrocodone Bitart ([place] (5/325)) 1 tab Q6H PRN PO .MOD PAIN 4- 6 Last administered on 11/09/18 07:45; Admin Dose 1 TAB; Start 11/05/18 at 23:30 Docusate Sodium (Colace) 100 mg Q12H PRN PO .CONSTIPATION; Start 11/05/18 at 23:30 Bisacodyl (Dulcolax) 5 mg DAILY PRN PO .CONSTIPATION; Start 11/05/18 at 23:30 Pantoprazole (Protonix Tab) 40 mg DAILY@06 PO Last administered on 11/09/18at 06:06; Admin Dose 40 MG; Start 11/06/18 at 06:00 Lactobacillus Acidophilus (Florajen3 Capsule) 1 each BID PO Last administered on 11/09/18at 08:57; Admin Dose 1 EACH; Start 11/06/18 at 21:00 Collagenase (Santyl) 1 applic BID TOP Last administered on 11/09/18at 08:57; Admin Dose 1 APPLIC; Start 11/07/18 at 13:30 Ferric Sodium Gluconate Complex 125 mg/Sodium Chloride 100 ml @ 100 mls/hr DAILY@1300 IVPB Last administered on 11/08/18at 12:20; Admin Dose 100 MLS/HR; Start 11/08/18 at 13:00; Stop 11/10/18 at 13:59 Vancomycin HCl (Vancomycin Oral Syringe) 125 mg Q6 PO Last administered on 11/09/18at 06:06; Admin Dose 125 MG; Start 11/08/18 at 12:00; Stop 11/18/18 at 11:59 Rifampin (Rifampin) 300 mg DAILY PO Last administered on 11/09/18at 09:57; Admin Dose 300 MG; Start 11/09/18 at 09:00 Vancomycin HCl (Vanco Iv Per Pharmacy) VANCOMYCIN PER PHARMACY PER PROTOCOL XX ; Start 11/09/18 at 07:30 GÓMEZ ARNDT Nov 09, 2018 10:01
--- NOTE | 2018-11-09 11:23 | PN ---
Date/Time of Note Date/Time of Note DATE: 11/09/18 TIME: 11:18 Assessment/Plan VTE Prophylaxis [place] [facility] [place]: 5 SCD applied (from Ns): Yes Pharmacological prophylaxis: heparin Lines/Catheters [facility] Saline Lock Urinary Cath still in place: No Assessment/Plan Problems: (1) Open scalp wound Status: Acute Comment: The imaging studies suggest the possibility of cranial osteomyelitis. As per infectious disease plans for 6 weeks of antibiotics using vancomycin to be dosed with his dialysis, and oral rifampin therapy. Qualifiers: Encounter type: initial encounter Open wound type: laceration Foreign body presence: without foreign body Qualified Codes: S01.01XA - Laceration without foreign body of scalp, initial encounter (2) MRSA (methicillin resistant staph aureus) culture positive Status: Acute Comment: As above defining our treatment (3) End-stage renal disease on hemodialysis Status: Chronic Comment: Continue with hemodialysis with nephrology help and coordinate for the infectious disease antibiotic administration (4) Anemia Status: Acute Comment: Has both iron deficiency and anemia of chronic disease and renal failure. He is receiving IV iron replacement Qualifiers: Anemia type: iron deficiency Iron deficiency anemia type: unspecified iron deficiency Qualified Codes: D50.9 - Iron deficiency anemia, unspecified (5) C. difficile colitis Status: Acute Comment: He is on oral vancomycin at this time. Please note the rifampin is unlikely to aggravate this as rifampin actually is times use as a treatment for C. difficile colitis (6) DISH (diffuse idiopathic skeletal hyperostosis) Status: Chronic Comment: Noted. Celebrex for pain is a trial (7) Hypertension Status: Chronic Comment: Adequate control Qualifiers: Hypertension type: essential hypertension Qualified Codes: I10 - Essential (primary) hypertension (8) Paroxysmal atrial fibrillation Status: Chronic Comment: Presently in sinus rhythm (9) History of CVA with residual deficit Status: Chronic Comment: Noted. (10) Prostatic hypertrophy Status: Chronic Comment: Noted. On alpha blockade and a 5 alpha reductase inhibitor Result Diagram: 11/09/1844811/09/18448 Results 24hrs Laboratory Tests Test 11/09/18 04:45 11/09/18 04:49 Random Vancomycin Level 19.1 White Blood Count 9.8 Red Blood Count 4.37 L Hemoglobin 12.0 L Hematocrit 38.5 L Mean Corpuscular Volume 88.1 Mean Corpuscular Hemoglobin 27.5 L Mean Corpuscular Hemoglobin Concent 31.2 L Red Cell Distribution Width 17.1 H Platelet Count 261 Mean Platelet Volume 10.3 Immature Granulocytes % 0.500 H Neutrophils % 76.5 Lymphocytes % 11.5 L Monocytes % 6.5 Eosinophils % 4.3 Basophils % 0.7 Nucleated Red Blood Cells % 0.0 Immature Granulocytes # 0.050 H Neutrophils # 7.5 Lymphocytes # 1.1 Monocytes # 0.6 Eosinophils # 0.4 Basophils # 0.1 Nucleated Red Blood Cells # 0.0 Sodium Level 140 Potassium Level 3.9 Chloride Level 104 Carbon Dioxide Level 25 Anion Gap 11 Blood Urea Nitrogen 30 H Creatinine 4.57 H Est Glomerular Filtrat Rate mL/min 13 L Glucose Level 123 Calcium Level 8.9 Subjective 24 Hr Interval Summary Free Text/Dictation Patient reports he is having a great deal of pain at the site of the scalp wound where he also has the abnormal MRI findings Constitutional: no complaints (Denies fevers chills or sweats) Respiratory: no complaints Cardiovascular: no complaints Gastrointestinal: no complaints Exam/Review of Systems Exam Vitals Vital Signs Date Temp Pulse Resp B/P (MAP) Pulse Ox O2 O2 Flow FiO2 Time Delivery Rate 11/09/18 98.3 106 18 138/86 96 07:40 (103) 11/08/18 Room Air 22:30 Intake and Output 11/08/18 11/08/18 11/09/18 1515:00 23:00 07:00 IntakeIntake Total 340 ml 480 ml OutputOutput Total 958 ml BalanceBalance 340 ml -478 ml Constitutional: alert, oriented Neck: supple, non-tender Respiratory: clear to auscultation, normal air movement Cardiovascular: regular rate and rhythm, nl pulses Results Results 24hrs Laboratory Tests Test 11/09/18 04:45 11/09/18 04:49 Random Vancomycin Level 19.1 White Blood Count 9.8 Red Blood Count 4.37 L Hemoglobin 12.0 L Hematocrit 38.5 L Mean Corpuscular Volume 88.1 Mean Corpuscular Hemoglobin 27.5 L Mean Corpuscular Hemoglobin Concent 31.2 L Red Cell Distribution Width 17.1 H Platelet Count 261 Mean Platelet Volume 10.3 Immature Granulocytes % 0.500 H Neutrophils % 76.5 Lymphocytes % 11.5 L Monocytes % 6.5 Eosinophils % 4.3 Basophils % 0.7 Nucleated Red Blood Cells % 0.0 Immature Granulocytes # 0.050 H Neutrophils # 7.5 Lymphocytes # 1.1 Monocytes # 0.6 Eosinophils # 0.4 Basophils # 0.1 Nucleated Red Blood Cells # 0.0 Sodium Level 140 Potassium Level 3.9 Chloride Level 104 Carbon Dioxide Level 25 Anion Gap 11 Blood Urea Nitrogen 30 H Creatinine 4.57 H Est Glomerular Filtrat Rate mL/min 13 L Glucose Level 123 Calcium Level 8.9 Medications Medication Current Medications Citalopram Hydrobromide (Celexa) 10 mg DAILY PO Last administered on 11/09/18 08:57; Admin Dose 10 MG; Start 11/06/18 at 09:00 Finasteride (Proscar) 5 mg DAILY PO Last administered on 11/09/18 08:57; Admin Dose 5 MG; Start 11/06/18 at 09:00 Methocarbamol (Robaxin) 750 mg Q6H PRN PO MUSCLE SPASMS Last administered on 11/09/18 01:56; Admin Dose 750 MG; Start 11/05/18 at 23:30 Tamsulosin HCl (Flomax) 0.4 mg HS PO Last administered on 11/08/18at 23:20; Admin Dose 0.4 MG; Start 11/06/18 at 21:00 IV Flush (NS 3 ml) 3 ml PER PROTOCOL IV ; Start 11/05/18 at 23:30 Ondansetron HCl (Zofran Inj) 4 mg Q6H PRN IV NAUSEA/VOMITING; Start 11/05/18 at 23:30 Acetaminophen (Tylenol Tab) 650 mg Q6H PRN PO .PAIN 1-3 OR TEMP Last administered on 11/09/18at 04:16; Admin Dose 650 MG; Start 11/05/18 at 23:30 Acetaminophen/ Hydrocodone Bitart ([place] (5/325)) 1 tab Q6H PRN PO .MOD PAIN 4- 6 Last administered on 11/09/18at 07:45; Admin Dose 1 TAB; Start 11/05/18 at 23:30 Docusate Sodium (Colace) 100 mg Q12H PRN PO .CONSTIPATION; Start 11/05/18 at 23:30 Bisacodyl (Dulcolax) 5 mg DAILY PRN PO .CONSTIPATION; Start 11/05/18 at 23:30 Pantoprazole (Protonix Tab) 40 mg DAILY@06 PO Last administered on 11/09/18at 06:06; Admin Dose 40 MG; Start 11/06/18 at 06:00 Lactobacillus Acidophilus (Florajen3 Capsule) 1 each BID PO Last administered on 11/09/18 08:57; Admin Dose 1 EACH; Start 11/06/18 at 21:00 Collagenase (Santyl) 1 applic BID TOP Last administered on 11/09/18at 08:57; Admin Dose 1 APPLIC; Start 11/07/18 at 13:30 Ferric Sodium Gluconate Complex 125 mg/Sodium Chloride 100 ml @ 100 mls/hr DAILY@1300 IVPB Last administered on 11/08/18at 12:20; Admin Dose 100 MLS/HR; Start 11/08/18 at 13:00; Stop 11/10/18 at 13:59 Vancomycin HCl (Vancomycin Oral Syringe) 125 mg Q6 PO Last administered on 11/09/18at 06:06; Admin Dose 125 MG; Start 11/08/18 at 12:00; Stop 11/18/18 at 11:59 Rifampin (Rifampin) 300 mg DAILY PO Last administered on 11/09/18at 09:57; Admin Dose 300 MG; Start 11/09/18 at 09:00; Stop 12/21/18 at 08:59 Vancomycin HCl (Vanco Iv Per Pharmacy) VANCOMYCIN PER PHARMACY PER PROTOCOL XX ; Start 11/09/18 at 07:30; Stop 12/21/18 at 07:29 Vancomycin HCl 250 ml @ 125 mls/hr ONCE ONCE IVPB ; Start 11/10/18 at 21:00; Stop 11/10/18 at 22:59 GERDA RHODES MD Nov 09, 2018 11:23
[2018-11-09] MEDS: CELECOXIB 100 MG CAP PO SCH (12:08)
[2018-11-09] MEDS: SOD FERRIC GLUC COMPLX 125 MG in SOD CHLORIDE 0.9% 100 ML IVPB SCH (12:43)
[2018-11-09 13:28] VITALS: BP 136/90; PULSE 96; RESP 18
[2018-11-09 20:10] VITALS: BP 137/88; PULSE 90; RESP 20
[2018-11-09] MEDS: TAMSULOSIN (SR) 0.4 MG CAP PO SCH (21:39)
[2018-11-10] MEDS: VANCOMYCIN HCL 250 MG/5ML POSYG PO SCH ×4 (00:06→18:09)
[2018-11-10] MEDS: HYDROCODONE/APAP (5/325) TAB PO PRN ×2 (00:39→09:32)
[2018-11-10 02:19] VITALS: BP 132/78; PULSE 88; RESP 17
[2018-11-10] MEDS: PANTOPRAZOLE (EC) 40 MG TAB PO SCH (06:16)
[2018-11-10 08:00] VITALS: BP 170/81; PULSE 101; RESP 18
[2018-11-10 09:29] VITALS: BP 164/85; PULSE 99; RESP 16
[2018-11-10] MEDS: COLLAGENASE 5 GM (UD JAR) TOP SCH ×2 (09:32→21:56)
[2018-11-10] MEDS: RIFAMPIN 300 MG CAP PO SCH (09:32)
[2018-11-10] MEDS: FINASTERIDE 5 MG TAB PO SCH (09:32)
[2018-11-10] MEDS: L ACIDOPHIL/B LACTIS/B LONGUM CAPSULE PO SCH ×2 (09:32→21:57)
[2018-11-10] MEDS: CELECOXIB 100 MG CAP PO SCH (09:32)
[2018-11-10] MEDS: CITALOPRAM 20 MG TAB PO SCH (09:33)
--- NOTE | 2018-11-10 11:27 | CONS ---
Assessment/Plan Assessment/Plan Hospital Course (Demo Recall) # End-stage renal disease. The patient is on dialysis Sunday, Sunday and Sunday, access AV fistula. # Lower chronic back pain, with hx C7 and T1 fracture # Scalp wound #. Anemia. Monitor hemoglobin and hematocrit levels. #. Mineral bone disorder. Monitor calcium and phosphorus levels. # Hypertension, controlled # Benign prostatic hypertrophy. # Depression. # History of congestive heart failure > compensated # A. fib # hepatitis B # hx stroke: on plavix # Diarrhoea due to c. diff Assessment/Plan (Daily) - HD MWF, -MRSA wound pos. -wound care - IV Abx per ID - Renally dose all med -start Epogen Consultation Date/Type/Reason Admit Date/Time November 07, 2018 at 08:30 Initial Consult Date 11/08/18 Type of Consult nephrology Date/Time of Note DATE: 11/10/18 TIME: 11:26 Exam/Review of Systems Exam Vitals Vital Signs Date Temp Pulse Resp B/P (MAP) Pulse Ox O2 O2 Flow FiO2 Time Delivery Rate 11/10/18 99 16 164/85 09:29 (111) 11/10/18 98.0 96 08:00 11/08/18 Room Air 22:30 Intake and Output 11/09/18 11/09/18 11/10/18 1515:00 23:00 07:00 IntakeIntake Total 100 ml 240 ml 240 ml BalanceBalance 100 ml 240 ml 240 ml Exam left arm A fistula Constitutional: alert, oriented Head: other (wound) Eyes: nl conjunctiva Neck: supple Respiratory: diminished breath sounds Cardiovascular: regular rate and rhythm Results Result Diagram: 11/09/18 0449 11/09/18 0449 Medications Medication Current Medications Citalopram Hydrobromide (Celexa) 10 mg DAILY PO Last administered on 11/10/18at 09:33; Admin Dose 10 MG; Start 11/06/18 at 09:00 Finasteride (Proscar) 5 mg DAILY PO Last administered on 11/10/18at 09:32; Admin Dose 5 MG; Start 11/06/18 at 09:00 Methocarbamol (Robaxin) 750 mg Q6H PRN PO MUSCLE SPASMS Last administered on 11/09/18at 01:56; Admin Dose 750 MG; Start 11/05/18 at 23:30 Tamsulosin HCl (Flomax) 0.4 mg HS PO Last administered on 11/09/18 21:39; Admin Dose 0.4 MG; Start 11/06/18 at 21:00 IV Flush (NS 3 ml) 3 ml PER PROTOCOL IV ; Start 11/05/18 at 23:30 Ondansetron HCl (Zofran Inj) 4 mg Q6H PRN IV NAUSEA/VOMITING; Start 11/05/18 at 23:30 Acetaminophen (Tylenol Tab) 650 mg Q6H PRN PO .PAIN 1-3 OR TEMP Last administered on 11/09/18 04:16; Admin Dose 650 MG; Start 11/05/18 at 23:30 Acetaminophen/ Hydrocodone Bitart ([place] (5/325)) 1 tab Q6H PRN PO .MOD PAIN 4- 6 Last administered on 11/10/18 09:32; Admin Dose 1 TAB; Start 11/05/18 at 23:30 Docusate Sodium (Colace) 100 mg Q12H PRN PO .CONSTIPATION; Start 11/05/18 at 23:30 Bisacodyl (Dulcolax) 5 mg DAILY PRN PO .CONSTIPATION; Start 11/05/18 at 23:30 Pantoprazole (Protonix Tab) 40 mg DAILY@06 PO Last administered on 11/10/18 06:16; Admin Dose 40 MG; Start 11/06/18 at 06:00 Lactobacillus Acidophilus (Florajen3 Capsule) 1 each BID PO Last administered on 11/10/18 09:32; Admin Dose 1 EACH; Start 11/06/18 at 21:00 Collagenase (Santyl) 1 applic BID TOP Last administered on 11/10/18 09:32; Admin Dose 1 APPLIC; Start 11/07/18 at 13:30 Ferric Sodium Gluconate Complex 125 mg/Sodium Chloride 100 ml @ 100 mls/hr DAILY@1300 IVPB Last administered on 11/09/18 12:43; Admin Dose 100 MLS/HR; Start 11/08/18 at 13:00; Stop 11/10/18 at 13:59 Vancomycin HCl (Vancomycin Oral Syringe) 125 mg Q6 PO Last administered on 11/10/18 06:16; Admin Dose 125 MG; Start 11/08/18 at 12:00; Stop 11/18/18 at 11:59 Rifampin (Rifampin) 300 mg DAILY PO Last administered on 11/10/18at 09:32; Admin Dose 300 MG; Start 11/09/18 at 09:00; Stop 12/21/18 at 08:59 Vancomycin HCl (Vanco Iv Per Pharmacy) VANCOMYCIN PER PHARMACY PER PROTOCOL XX ; Start 11/09/18 at 07:30; Stop 12/21/18 at 07:29 Vancomycin HCl 250 ml @ 125 mls/hr ONCE ONCE IVPB ; Start 11/10/18 at 21:00; Stop 11/10/18 at 22:59 Celecoxib (Celebrex) 100 mg DAILY PO Last administered on 11/10/18at 09:32; Admin Dose 100 MG; Start 11/09/18 at 11:30 GÓMEZ ARNDT Nov 10, 2018 11:27
[2018-11-10 11:30] VITALS: BP 158/75; PULSE 98; RESP 18
--- NOTE | 2018-11-10 11:55 | PN ---
Date/Time of Note Date/Time of Note DATE: 11/10/18 TIME: 11:52 Assessment/Plan VTE Prophylaxis Risk score (from [facility] [place]0 risk: 7 SCD applied (from [facility] [place]): Yes SCD contraindicated: patient refusal Pharmacological prophylaxis: heparin Lines/Catheters IV Catheter Type (from [facility]): Saline Lock Urinary Cath still in place: No Assessment/Plan Problems: (1) Open scalp wound Status: Acute Comment: Remains on therapy. 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 He will be on antibiotics. Case management is working on placement both for his IV antibiotic therapy and his dialysis. (The antibiotics can be given at dialysis) Qualifiers: Encounter type: initial encounter Open wound type: laceration Foreign body presence: without foreign body Qualified Codes: S01.01XA - Laceration without foreign body of scalp, initial encounter (2) MRSA (methicillin resistant staph aureus) culture positive Status: Acute Comment: As above. Also please see infectious disease consult note (3) History of CVA with residual deficit Status: Chronic Comment: Stable at this time. (4) Hypertension Status: Chronic Comment: He could use a little bit more blood pressure control. I will try and work on this Qualifiers: Hypertension type: essential hypertension Qualified Codes: I10 - Essential (primary) hypertension (5) Anemia Status: Acute Comment: Noted. Qualifiers: Anemia type: iron deficiency Iron deficiency anemia type: unspecified iron deficiency Qualified Codes: D50.9 - Iron deficiency anemia, unspecified (6) Urinary retention Status: Acute Comment: On alpha blockade and 5 alpha reductase inhibitor. (7) DISH (diffuse idiopathic skeletal hyperostosis) Status: Chronic Comment: Noted. (8) C. difficile colitis Status: Acute Comment: On treatment. (9) Paroxysmal atrial fibrillation Status: Chronic Comment: Presently in sinus rhythm Result Diagram: 11/09/18 0449 11/09/189 Subjective 24 Hr Interval Summary Free Text/Dictation Patient reports that his pain is improved. Constitutional: no complaints (No fevers chills or sweats) Respiratory: no complaints Cardiovascular: no complaints Gastrointestinal: no complaints Exam/Review of Systems Exam Vitals Vital Signs Date Temp Pulse Resp B/P (MAP) Pulse Ox O2 O2 Flow FiO2 Time Delivery Rate 11/10/18 99 16 164/85 09:29 (111) 11/10/18 98.0 96 08:00 11/08/18 Room Air 22:30 Intake and Output 11/09/18 11/09/18 11/10/18 1515:00 23:00 07:00 IntakeIntake Total 100 ml 240 ml 240 ml BalanceBalance 100 ml 240 ml 240 ml Constitutional: alert Neck: supple, non-tender Respiratory: clear to auscultation, normal air movement Cardiovascular: regular rate and rhythm, nl pulses Gastrointestinal: soft, nl liver, spleen, non-tender Medications Medication Current Medications Citalopram Hydrobromide (Celexa) 10 mg DAILY PO Last administered on 11/10/18 09:33; Admin Dose 10 MG; Start 11/06/18 at 09:00 Finasteride (Proscar) 5 mg DAILY PO Last administered on 11/10/18 09:32; Admin Dose 5 MG; Start 11/06/18 at 09:00 Methocarbamol (Robaxin) 750 mg Q6H PRN PO MUSCLE SPASMS Last administered on 11/09/18 01:56; Admin Dose 750 MG; Start 11/05/18 at 23:30 Tamsulosin HCl (Flomax) 0.4 mg HS PO Last administered on 11/09/18 21:39; Admin Dose 0.4 MG; Start 11/06/18 at 21:00 IV Flush (NS 3 ml) 3 ml PER PROTOCOL IV ; Start 11/05/18 at 23:30 Ondansetron HCl (Zofran Inj) 4 mg Q6H PRN IV NAUSEA/VOMITING; Start 11/05/18 at 23:30 Acetaminophen (Tylenol Tab) 650 mg Q6H PRN PO .PAIN 1-3 OR TEMP Last administered on 11/09/18 04:16; Admin Dose 650 MG; Start 11/05/18 at 23:30 Acetaminophen/ Hydrocodone Bitart ([place] (5/325)) 1 tab Q6H PRN PO .MOD PAIN 4- 6 Last administered on 11/10/18 09:32; Admin Dose 1 TAB; Start 11/05/18 at 23:30 Docusate Sodium (Colace) 100 mg Q12H PRN PO .CONSTIPATION; Start 11/05/18 at 23:30 Bisacodyl (Dulcolax) 5 mg DAILY PRN PO .CONSTIPATION; Start 11/05/18 at 23:30 Pantoprazole (Protonix Tab) 40 mg DAILY@06 PO Last administered on 11/10/18 06:16; Admin Dose 40 MG; Start 11/06/18 at 06:00 Lactobacillus Acidophilus (Florajen3 Capsule) 1 each BID PO Last administered on 11/10/18 09:32; Admin Dose 1 EACH; Start 11/06/18 at 21:00 Collagenase (Santyl) 1 applic BID TOP Last administered on 11/10/18 09:32; Admin Dose 1 APPLIC; Start 11/07/18 at 13:30 Ferric Sodium Gluconate Complex 125 mg/Sodium Chloride 100 ml @ 100 mls/hr DAILY@1300 IVPB Last administered on 11/09/18 12:43; Admin Dose 100 MLS/HR; Start 11/08/18 at 13:00; Stop 11/10/18 at 13:59 Vancomycin HCl (Vancomycin Oral Syringe) 125 mg Q6 PO Last administered on 11/10/18 06:16; Admin Dose 125 MG; Start 11/08/18 at 12:00; Stop 11/18/18 at 11:59 Rifampin (Rifampin) 300 mg DAILY PO Last administered on 11/10/18 09:32; Admin Dose 300 MG; Start 11/09/18 at 09:00; Stop 12/21/18 at 08:59 Vancomycin HCl (Vanco Iv Per Pharmacy) VANCOMYCIN PER PHARMACY PER PROTOCOL XX ; Start 11/09/18 at 07:30; Stop 12/21/18 at 07:29 Vancomycin HCl 250 ml @ 125 mls/hr ONCE ONCE IVPB ; Start 11/10/18 at 21:00; Stop 11/10/18 at 22:59 Celecoxib (Celebrex) 100 mg DAILY PO Last administered on 11/10/18 09:32; Admin Dose 100 MG; Start 11/09/18 at 11:30 Epoetin Narendra-epbx (Retacrit (Esrd)) 4,000 unit MoWeFr@1700 SC ; Start 11/11/18 at 17:00; Status GERDA COTTRELL MD Nov 10, 2018 11:55
[2018-11-10] MEDS: SOD FERRIC GLUC COMPLX 125 MG in SOD CHLORIDE 0.9% 100 ML IVPB SCH (13:29)
[2018-11-10 14:00] VITALS: BP 150/72; PULSE 90; RESP 18
[2018-11-10] MEDS: METHOCARBAMOL 750 MG TAB PO PRN (15:21)
[2018-11-10 20:32] VITALS: BP 146/59; PULSE 91; RESP 17
[2018-11-10] MEDS ORDERED: VANCOMYCIN 1 GM 250 ML IVPB ONE (21:00)
[2018-11-10] MEDS: DOXAZOSIN 2 MG TAB PO SCH (21:57)
[2018-11-10] MEDS: TAMSULOSIN (SR) 0.4 MG CAP PO SCH (21:57)
[2018-11-11] VITALS (17 sets, daily range): BP systolic 114–147; BP diastolic 52–72; PULSE 78–90; RESP 18–19
[2018-11-11] MEDS: VANCOMYCIN HCL 250 MG/5ML POSYG PO SCH ×4 (01:06→17:55)
[2018-11-11] MEDS: PANTOPRAZOLE (EC) 40 MG TAB PO SCH (06:06)
--- NOTE | 2018-11-11 07:55 | CONS ---
Assessment/Plan Assessment/Plan Hospital Course (Demo Recall) 1) L occipital scalp wound with probably osteo ESR and CRP are not very elevated MRI suggests osteo but could be reactive to surface infection I will order bone scan scalp cx grew only c.alb which is very unlikely to be significant change vanco/cefepime to doxy/keflex if bone scan is neg then continue doxy/keflex thru 11/20 11/09 - bone scan was positive to same site as MRI scalp wound has grown MRSA d/c doxy/keflex and start again IV vanco with rifampin, continue both for 4-6 weeks pt ideally should get vanco with dialysis 11/11 - tolerating vanco/rifampin at present, to continue thru 12/06 at least repeat ESR in a few days redness to back of head is mostly resolved 2) ESRD 3) diarrhea (c.dif positive) c.dif has been ordered pt is on probiotics 11/09 - c.dif was positive po vanco has been started IV vanco and po rifampin are unlikely to exacerbate his c.dif 11/11 - no abd cramping but still with watery stools on po vanco 4)BPH 5) hx of CVA with L sided weakness 6) paroxysmal a-fib plavix was stopped Consultation Date/Type/Reason Admit Date/Time November 07, 2018 at 08:30 Initial Consult Date 11/08/18 Type of Consult ID Date/Time of Note DATE: 11/11/18 TIME: 07:53 24 HR Interval Summary Free Text/Dictation pt still has loose stools, 4x overnight no abd pain though no N, V, SOB Exam/Review of Systems Exam Vitals Vital Signs Date Temp Pulse Resp B/P (MAP) Pulse Ox O2 O2 Flow FiO2 Time Delivery Rate 11/11/18 98.0 90 18 147/68 92 02:33 (94) 11/08/18 Room Air 22:30 Intake and Output 11/10/18 11/10/18 11/11/18 1515:00 23:00 07:00 IntakeIntake Total 700 ml 500 ml 440 ml BalanceBalance 700 ml 500 ml 440 ml Constitutional: alert, oriented Head: other (less redness to back of head, still has ulcer present) ENMT: mucosa pink and moist Respiratory: clear to auscultation Cardiovascular: regular rate and rhythm Gastrointestinal: soft, non-tender Results Result Diagram: 11/09/189 11/09/18448 Medications Medication Current Medications Citalopram Hydrobromide (Celexa) 10 mg DAILY PO Last administered on 11/10/18 09:33; Admin Dose 10 MG; Start 11/06/18 at 09:00 Finasteride (Proscar) 5 mg DAILY PO Last administered on 11/10/18 09:32; Admin Dose 5 MG; Start 11/06/18 at 09:00 Methocarbamol (Robaxin) 750 mg Q6H PRN PO MUSCLE SPASMS Last administered on 15:21; Admin Dose 750 MG; Start 11/05/18 at 23:30 Tamsulosin HCl (Flomax) 0.4 mg HS PO Last administered on 11/10/18 21:57; Admin Dose 0.4 MG; Start 11/06/18 at 21:00 IV Flush (NS 3 ml) 3 ml PER PROTOCOL IV Last administered on 11/10/18 22:31; Admin Dose 3 ML; Start 11/05/18 at 23:30 Ondansetron HCl (Zofran Inj) 4 mg Q6H PRN IV NAUSEA/VOMITING; Start 11/05/18 at 23:30 Acetaminophen (Tylenol Tab) 650 mg Q6H PRN PO .PAIN 1-3 OR TEMP Last administered on 11/09/18 04:16; Admin Dose 650 MG; Start 11/05/18 at 23:30 Acetaminophen/ Hydrocodone Bitart ([place] (5/325)) 1 tab Q6H PRN PO .MOD PAIN 4- 6 Last administered on 11/10/18 09:32; Admin Dose 1 TAB; Start 11/05/18 at 23:30 Docusate Sodium (Colace) 100 mg Q12H PRN PO .CONSTIPATION; Start 11/05/18 at 23:30 Bisacodyl (Dulcolax) 5 mg DAILY PRN PO .CONSTIPATION; Start 11/05/18 at 23:30 Pantoprazole (Protonix Tab) 40 mg DAILY@06 PO Last administered on 11/11/18 06:06; Admin Dose 40 MG; Start 11/06/18 at 06:00 Lactobacillus Acidophilus (Florajen3 Capsule) 1 each BID PO Last administered on 11/10/18 21:57; Admin Dose 1 EACH; Start 11/06/18 at 21:00 Collagenase (Santyl) 1 applic BID TOP Last administered on 11/10/18 21:56; Admin Dose 1 APPLIC; Start 11/07/18 at 13:30 Vancomycin HCl (Vancomycin Oral Syringe) 125 mg Q6 PO Last administered on 11/11/18 06:06; Admin Dose 125 MG; Start 11/08/18 at 12:00; Stop 11/18/18 at 11:59 Rifampin (Rifampin) 300 mg DAILY PO Last administered on 11/10/18 09:32; Admin Dose 300 MG; Start 11/09/18 at 09:00; Stop 12/21/18 at 08:59 Vancomycin HCl (Vanco Iv Per Pharmacy) VANCOMYCIN PER PHARMACY PER PROTOCOL XX ; Start 11/09/18 at 07:30; Stop 12/21/18 at 07:29 Celecoxib (Celebrex) 100 mg DAILY PO Last administered on 11/10/18 09:32; Admin Dose 100 MG; Start 11/09/18 at 11:30 Epoetin Narendra-epbx (Retacrit (Esrd)) 4,000 unit MoWeFr@1700 SC ; Start 11/11/18 at 17:00 Doxazosin Mesylate (Cardura) 2 mg HS PO Last administered on 11/10/18 21:57; Admin Dose 2 MG; Start 11/10/18 at 21:00 ASHANTI VARELA MD Nov 11, 2018 07:55
[2018-11-11] MEDS: CELECOXIB 100 MG CAP PO SCH (09:35)
[2018-11-11] MEDS: CITALOPRAM 20 MG TAB PO SCH (09:35)
[2018-11-11] MEDS: COLLAGENASE 5 GM (UD JAR) TOP SCH ×2 (09:35→22:49)
[2018-11-11] MEDS: FINASTERIDE 5 MG TAB PO SCH (09:35)
[2018-11-11] MEDS: RIFAMPIN 300 MG CAP PO SCH (09:35)
[2018-11-11] MEDS: L ACIDOPHIL/B LACTIS/B LONGUM CAPSULE PO SCH ×2 (09:35→22:49)
--- NOTE | 2018-11-11 10:10 | PN ---
Date/Time of Note Date/Time of Note DATE: 11/11/18 TIME: 10:07 Assessment/Plan VTE Prophylaxis Risk score (from Ns)>0 risk: 7 SCD applied (from Ns): Yes Pharmacological prophylaxis: NA/contraindicated Pharm contraindication: hemorrhagic infarct Lines/Catheters IV Catheter Type (from Nrs): Saline Lock Urinary Cath still in place: No Assessment/Plan Hospital Course S: one episode of diarrhea Objective : Constitutional: alert, oriented, looks older than stated age, conversant, lying flat in the bed Head: occipital ulcer otherwise normocephalic Respiratory: clear to auscultation, but diminished bilaterally Cardiovascular: irregularly irregular, no murmurs Gastrointestinal: S/ NT / ND / +BS Extremities: no edema assessment and plan: 68-year-old chronically debilitated male who looks older than his stated age who was brought in from home but had recently been at correction facility because of severe back pain and his family's inability to care for him. He is currently managed as follows: 1. Back pain, chronic ? with worsening debility and known C7 / [id number] fracture from August 2018 -Patient is currently complaining of lower back pain, not pain in his neck however patient was able to ambulate after C-spine fracture and has lost that ability at this time. 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 End-stage renal disease on hemodialysis: -Patient maintained on routine HD per nephro, appreciate input 4. Fluid overload versus Pna -will order f/u CXR -abx deescalated per ID -maintained on ultrafiltration with HD -echo with preserved EF and stage 1 DD 5. History of multiple previous CVA and chronic bleed, was on Plavix with residual left-sided weakness -MRI also showing evidence of chronic hemorrhagic bleed -asa and plavix have been put on hold for now based on MRI findings 6. Chronic depression -Patient has a history of this condition. No acute issues so far on this admission. 9. Paroxysmal atrial fibrillation -not a candidate for anticoagulation -rate controlled 9. Chronic normocytic anemia: Stable 10. C diff colitis -start 10 days of PO vanc for 1st incident -contact precautions 11. Iron deficiency anemia -s/p IV iron x 3days, will check levels Further interventions per clinical course Result Diagram: 11/09/1844811/09/18448 Exam/Review of Systems Exam Vitals Vital Signs Date Temp Pulse Resp B/P (MAP) Pulse Ox O2 O2 Flow FiO2 Time Delivery Rate 11/11/18 98.1 19 132/62 99 08:04 (85) 11/11/18 90 02:33 11/08/18 Room Air 22:30 Intake and Output 11/10/18 11/10/18 11/11/18 1515:00 23:00 07:00 IntakeIntake Total 700 ml 500 ml 440 ml BalanceBalance 700 ml 500 ml 440 ml Medications Medication Current Medications Citalopram Hydrobromide (Celexa) 10 mg DAILY PO Last administered on 11/11/18 09:35; Admin Dose 10 MG; Start 11/06/18 at 09:00 Finasteride (Proscar) 5 mg DAILY PO Last administered on 11/11/18 09:35; Admin Dose 5 MG; Start 11/06/18 at 09:00 Methocarbamol (Robaxin) 750 mg Q6H PRN PO MUSCLE SPASMS Last administered on 11/10/18 15:21; Admin Dose 750 MG; Start 11/05/18 at 23:30 Tamsulosin HCl (Flomax) 0.4 mg HS PO Last administered on 11/10/18at 21:57; Admin Dose 0.4 MG; Start 11/06/18 at 21:00 IV Flush (NS 3 ml) 3 ml PER PROTOCOL IV Last administered on 11/10/18 22:31; Admin Dose 3 ML; Start 11/05/18 at 23:30 Ondansetron HCl (Zofran Inj) 4 mg Q6H PRN IV NAUSEA/VOMITING; Start 11/05/18 at 23:30 Acetaminophen (Tylenol Tab) 650 mg Q6H PRN PO .PAIN 1-3 OR TEMP Last administered on 11/09/18at 04:16; Admin Dose 650 MG; Start 11/05/18 at 23:30 Acetaminophen/ Hydrocodone Bitart ([place] (5/325)) 1 tab Q6H PRN PO .MOD PAIN 4- 6 Last administered on 11/10/18 09:32; Admin Dose 1 TAB; Start 11/05/18 at 23:30 Docusate Sodium (Colace) 100 mg Q12H PRN PO .CONSTIPATION; Start 11/05/18 at 23:30 Bisacodyl (Dulcolax) 5 mg DAILY PRN PO .CONSTIPATION; Start 11/05/18 at 23:30 Pantoprazole (Protonix Tab) 40 mg DAILY@06 PO Last administered on 11/11/18 06:06; Admin Dose 40 MG; Start 11/06/18 at 06:00 Lactobacillus Acidophilus (Florajen3 Capsule) 1 each BID PO Last administered on 11/11/18 09:35; Admin Dose 1 EACH; Start 11/06/18 at 21:00 Collagenase (Santyl) 1 applic BID TOP Last administered on 11/11/18 09:35; Admin Dose 1 APPLIC; Start 11/07/18 at 13:30 Vancomycin HCl (Vancomycin Oral Syringe) 125 mg Q6 PO Last administered on 11/11/18 06:06; Admin Dose 125 MG; Start 11/08/18 at 12:00; Stop 11/18/18 at 11:59 Rifampin (Rifampin) 300 mg DAILY PO Last administered on 11/11/18 09:35; Admin Dose 300 MG; Start 11/09/18 at 09:00; Stop 12/21/18 at 08:59 Vancomycin HCl (Vanco Iv Per Pharmacy) VANCOMYCIN PER PHARMACY PER PROTOCOL XX ; Start 11/09/18 at 07:30; Stop 12/21/18 at 07:29 Celecoxib (Celebrex) 100 mg DAILY PO Last administered on 11/11/18 09:35; Admin Dose 100 MG; Start 11/09/18 at 11:30 Epoetin Narendra-epbx (Retacrit (Esrd)) 4,000 unit MoWeFr@1700 SC ; Start 11/11/18 at 17:00 Doxazosin Mesylate (Cardura) 2 mg HS PO Last administered on 11/10/18at 21:57; Admin Dose 2 MG; Start 11/10/18 at 21:00 HEATHER METCALF 3, 2019 10:10
--- NOTE | 2018-11-11 12:52 | CONS ---
Assessment/Plan Assessment/Plan Assessment/Plan (Daily) Hospital Course (Demo Recall) # End-stage renal disease. The patient is on dialysis Sunday, Sunday and Sunday, access AV fistula. # Lower chronic back pain, with hx C7 and T1 fracture # Scalp wound #. Anemia. Monitor hemoglobin and hematocrit levels. #. Mineral bone disorder. Monitor calcium and phosphorus levels. # Hypertension, controlled # Benign prostatic hypertrophy. # Depression. # History of congestive heart failure > compensated # A. fib # hepatitis B # hx stroke: on plavix # Diarrhoea due to c. diff Assessment/Plan (Daily) - HD MWF, HD today with gentle fluid removal - cw po vancomycin for c diff -wound care - IV Abx per ID - Renally dose all med -cw Epogen - ? Surgery Consultation Date/Type/Reason Admit Date/Time November 07, 2018 at 08:30 Initial Consult Date Date/Time of Note DATE: 11/11/18 TIME: 12:50 24 HR Interval Summary Free Text/Dictation Still having diarrhea. Plan for surgery tomorrow? Exam/Review of Systems Exam Vitals Vital Signs Date Temp Pulse Resp B/P (MAP) Pulse Ox O2 O2 Flow FiO2 Time Delivery Rate 11/11/18 98.1 19 132/62 99 08:04 (85) 11/11/18 90 02:33 11/08/18 Room Air 22:30 Intake and Output 11/10/18 11/10/18 11/11/18 1515:00 23:00 07:00 IntakeIntake Total 700 ml 500 ml 440 ml BalanceBalance 700 ml 500 ml 440 ml Exam Constitutional: alert, oriented, Head: occipital ulcer Respiratory: clear to auscultation Cardiovascular: irregularly irregular, no murmurs Gastrointestinal: S/ NT / ND / +BS Extremities: no edema Fistula Results Result Diagram: 11/09/1844811/09/18448 Medications Medication Current Medications Citalopram Hydrobromide (Celexa) 10 mg DAILY PO Last administered on 11/11/18at 09:35; Admin Dose 10 MG; Start 11/06/18 at 09:00 Finasteride (Proscar) 5 mg DAILY PO Last administered on 11/11/18at 09:35; Admin Dose 5 MG; Start 11/06/18 at 09:00 Methocarbamol (Robaxin) 750 mg Q6H PRN PO MUSCLE SPASMS Last administered on 11/10/18 15:21; Admin Dose 750 MG; Start 11/05/18 at 23:30 Tamsulosin HCl (Flomax) 0.4 mg HS PO Last administered on 11/10/18 21:57; Admin Dose 0.4 MG; Start 11/06/18 at 21:00 IV Flush (NS 3 ml) 3 ml PER PROTOCOL IV Last administered on 11/10/18 22:31; Admin Dose 3 ML; Start 11/05/18 at 23:30 Ondansetron HCl (Zofran Inj) 4 mg Q6H PRN IV NAUSEA/VOMITING; Start 11/05/18 at 23:30 Acetaminophen (Tylenol Tab) 650 mg Q6H PRN PO .PAIN 1-3 OR TEMP Last administered on 11/09/18 04:16; Admin Dose 650 MG; Start 11/05/18 at 23:30 Acetaminophen/ Hydrocodone Bitart ([place] (5/325)) 1 tab Q6H PRN PO .MOD PAIN 4- 6 Last administered on 11/10/18 09:32; Admin Dose 1 TAB; Start 11/05/18 at 23:30 Docusate Sodium (Colace) 100 mg Q12H PRN PO .CONSTIPATION; Start 11/05/18 at 23:30 Bisacodyl (Dulcolax) 5 mg DAILY PRN PO .CONSTIPATION; Start 11/05/18 at 23:30 Pantoprazole (Protonix Tab) 40 mg DAILY@06 PO Last administered on 11/11/18 06:06; Admin Dose 40 MG; Start 11/06/18 at 06:00 Lactobacillus Acidophilus (Florajen3 Capsule) 1 each BID PO Last administered on 11/11/18 09:35; Admin Dose 1 EACH; Start 11/06/18 at 21:00 Collagenase (Santyl) 1 applic BID TOP Last administered on 11/11/18 09:35; Admin Dose 1 APPLIC; Start 11/07/18 at 13:30 Vancomycin HCl (Vancomycin Oral Syringe) 125 mg Q6 PO Last administered on 11/11/18 12:05; Admin Dose 125 MG; Start 11/08/18 at 12:00; Stop 11/18/18 at 11:59 Rifampin (Rifampin) 300 mg DAILY PO Last administered on 11/11/18at 09:35; Admin Dose 300 MG; Start 11/09/18 at 09:00; Stop 12/21/18 at 08:59 Vancomycin HCl (Vanco Iv Per Pharmacy) VANCOMYCIN PER PHARMACY PER PROTOCOL XX ; Start 11/09/18 at 07:30; Stop 12/21/18 at 07:29 Celecoxib (Celebrex) 100 mg DAILY PO Last administered on 11/11/18at 09:35; Admin Dose 100 MG; Start 11/09/18 at 11:30 Epoetin Narendra-epbx (Retacrit (Esrd)) 4,000 unit MoWeFr@1700 SC ; Start 11/11/18 at 17:00 Doxazosin Mesylate (Cardura) 2 mg HS PO Last administered on 11/10/18at 21:57; Admin Dose 2 MG; Start 11/10/18 at 21:00 ANATOLY VILLEGAS MD Nov 11, 2018 12:52
[2018-11-11] MEDS ORDERED: EPOETIN ALFA-EPBX (ESRD) 4,000 UNIT/ML VIAL SC SCH (17:00)
[2018-11-11] MEDS: ACETAMINOPHEN 325 MG TAB PO PRN (17:05)
[2018-11-11] MEDS: HYDROCODONE/APAP (5/325) TAB PO PRN (18:04)
[2018-11-11] MEDS ORDERED: HYDROCODONE/APAP (5/325) TAB PO STA (22:33)
[2018-11-11] MEDS: TAMSULOSIN (SR) 0.4 MG CAP PO SCH (22:48)
[2018-11-11] MEDS: DOXAZOSIN 2 MG TAB PO SCH (22:49)
[2018-11-12] MEDS: VANCOMYCIN HCL 250 MG/5ML POSYG PO SCH ×3 (00:42→12:26)
[2018-11-12 02:33] VITALS: BP 129/60; PULSE 95; RESP 16
[2018-11-12] MEDS: HYDROCODONE/APAP (5/325) TAB PO PRN (06:49)
[2018-11-12] MEDS: PANTOPRAZOLE (EC) 40 MG TAB PO SCH (06:49)
[2018-11-12 07:24] VITALS: BP 131/64; PULSE 82; RESP 19
[2018-11-12] MEDS ORDERED: MUPIROCIN 2% 22 GM OINT TOP SCH (09:00)
[2018-11-12] MEDS: L ACIDOPHIL/B LACTIS/B LONGUM CAPSULE PO SCH (09:34)
[2018-11-12] MEDS: COLLAGENASE 5 GM (UD JAR) TOP SCH (09:34)
[2018-11-12] MEDS: CELECOXIB 100 MG CAP PO SCH (09:35)
[2018-11-12] MEDS: RIFAMPIN 300 MG CAP PO SCH (09:35)
[2018-11-12] MEDS: FINASTERIDE 5 MG TAB PO SCH (09:35)
[2018-11-12] MEDS: CITALOPRAM 20 MG TAB PO SCH (09:35)
[2018-11-12 13:29] VITALS: BP 142/62; PULSE 84; RESP 19
--- NOTE | 2018-11-12 14:32 | CONS ---
Assessment/Plan Assessment/Plan Assessment/Plan (Daily) Hospital Course (Demo Recall) # End-stage renal disease. The patient is on dialysis Sunday, Sunday and Sunday, access AV fistula. # Lower chronic back pain, with hx C7 and T1 fracture # Scalp wound with osteomyelitis #. Anemia. Monitor hemoglobin and hematocrit levels. #. Mineral bone disorder. Monitor calcium and phosphorus levels. # Hypertension, controlled # Benign prostatic hypertrophy. # Depression. # History of congestive heart failure > compensated # A. fib # hepatitis B # hx stroke: on plavix # Diarrhoea due to c. diff Assessment/Plan (Daily) - HD MWF, HD tmw - cw po vancomycin for c diff -wound care - IV Abx per ID - Renally dose all med -cw Epogen - ? Surgery, apparently family had refused Consultation Date/Type/Reason Admit Date/Time November 07, 2018 at 08:30 Initial Consult Date Date/Time of Note DATE: 11/12/18 TIME: 14:30 24 HR Interval Summary Free Text/Dictation he feels better today. diarrhoea has improved. Exam/Review of Systems Exam Vitals Vital Signs Date Temp Pulse Resp B/P (MAP) Pulse Ox O2 O2 Flow FiO2 Time Delivery Rate 11/12/18 98.2 84 19 142/62 98 13:29 (88) 11/11/18 Room Air 19:00 Intake and Output 11/11/18 11/11/18 11/12/18 1515:00 23:00 07:00 IntakeIntake Total 100 ml 100 ml OutputOutput Total 1400 ml BalanceBalance -1300 ml 100 ml Exam Constitutional: alert, oriented, Head: occipital ulcer Respiratory: clear to auscultation Cardiovascular: irregularly irregular, no murmurs Gastrointestinal: S/ NT / ND / +BS Extremities: no edema Fistula Results Result Diagram: 11/12/18 0455 11/12/18 0455 Results 24hrs Laboratory Tests Test 11/12/18 04:55 White Blood Count 8.2 Red Blood Count 4.63 L Hemoglobin 12.8 L Hematocrit 41.4 L Mean Corpuscular Volume 89.4 Mean Corpuscular Hemoglobin 27.6 L Mean Corpuscular Hemoglobin Concent 30.9 L Red Cell Distribution Width 16.8 H Platelet Count 281 Mean Platelet Volume 10.3 Immature Granulocytes % 0.900 H Neutrophils % 68.4 Lymphocytes % 15.9 Monocytes % 7.8 Eosinophils % 6.0 Basophils % 1.0 Nucleated Red Blood Cells % 0.0 Immature Granulocytes # 0.070 H Neutrophils # 5.6 Lymphocytes # 1.3 Monocytes # 0.6 Eosinophils # 0.5 Basophils # 0.1 Nucleated Red Blood Cells # 0.0 Sodium Level 144 Potassium Level 4.0 Chloride Level 103 Carbon Dioxide Level 30 Anion Gap 11 Blood Urea Nitrogen 18 Creatinine 3.43 H Est Glomerular Filtrat Rate mL/min 18 L Glucose Level 98 Calcium Level 9.3 Phosphorus Level 3.5 Magnesium Level 2.0 Iron Level 56 Total Iron Binding Capacity 186 L Percent Iron Saturation 30 Medications Medication Current Medications Citalopram Hydrobromide (Celexa) 10 mg DAILY PO Last administered on 11/12/18 09:35; Admin Dose 10 MG; Start 11/06/18 at 09:00 Finasteride (Proscar) 5 mg DAILY PO Last administered on 11/12/18 09:35; Admin Dose 5 MG; Start 11/06/18 at 09:00 Methocarbamol (Robaxin) 750 mg Q6H PRN PO MUSCLE SPASMS Last administered on 11/10/18 15:21; Admin Dose 750 MG; Start 11/05/18 at 23:30 Tamsulosin HCl (Flomax) 0.4 mg HS PO Last administered on 11/11/18 22:48; Admin Dose 0.4 MG; Start 11/06/18 at 21:00 IV Flush (NS 3 ml) 3 ml PER PROTOCOL IV Last administered on 11/10/18 22:31; Admin Dose 3 ML; Start 11/05/18 at 23:30 Ondansetron HCl (Zofran Inj) 4 mg Q6H PRN IV NAUSEA/VOMITING; Start 11/05/18 at 23:30 Acetaminophen (Tylenol Tab) 650 mg Q6H PRN PO .PAIN 1-3 OR TEMP Last administered on 11/11/18 17:05; Admin Dose 650 MG; Start 11/05/18 at 23:30 Acetaminophen/ Hydrocodone Bitart (Nageezi (5/325)) 1 tab Q6H PRN PO .MOD PAIN 4- 6 Last administered on 11/12/18 06:49; Admin Dose 1 TAB; Start 11/05/18 at 23:30 Docusate Sodium (Colace) 100 mg Q12H PRN PO .CONSTIPATION; Start 11/05/18 at 23:30 Bisacodyl (Dulcolax) 5 mg DAILY PRN PO .CONSTIPATION; Start 11/05/18 at 23:30 Pantoprazole (Protonix Tab) 40 mg DAILY@06 PO Last administered on 11/12/18 06:49; Admin Dose 40 MG; Start 11/06/18 at 06:00 Lactobacillus Acidophilus (Florajen3 Capsule) 1 each BID PO Last administered on 11/12/18 09:34; Admin Dose 1 EACH; Start 11/06/18 at 21:00 Collagenase (Santyl) 1 applic BID TOP Last administered on 11/12/18 09:34; Admin Dose 1 APPLIC; Start 11/07/18 at 13:30 Vancomycin HCl (Vancomycin Oral Syringe) 125 mg Q6 PO Last administered on 11/12/18 12:26; Admin Dose 125 MG; Start 11/08/18 at 12:00; Stop 11/18/18 at 11:59 Rifampin (Rifampin) 300 mg DAILY PO Last administered on 11/12/18 09:35; Admin Dose 300 MG; Start 11/09/18 at 09:00; Stop 12/21/18 at 08:59 Vancomycin HCl (Vanco Iv Per Pharmacy) VANCOMYCIN PER PHARMACY PER PROTOCOL XX ; Start 11/09/18 at 07:30; Stop 12/21/18 at 07:29 Celecoxib (Celebrex) 100 mg DAILY PO Last administered on 11/12/18 09:35; Admin Dose 100 MG; Start 11/09/18 at 11:30 Epoetin Narendra-epbx (Retacrit (Esrd)) 4,000 unit MoWeFr@1700 SC ; Start 11/11/18 at 17:00 Doxazosin Mesylate (Cardura) 2 mg HS PO Last administered on 11/11/18 22:49; Admin Dose 2 MG; Start 11/10/18 at 21:00 Mupirocin (Bactroban) 1 applic BID TOP Last administered on 11/12/18 09:34; Admin Dose 1 APPLIC; Start 11/12/18 at 09:00 ANATOLY VILLEGAS MD Nov 12, 2018 14:32
--- NOTE | 2018-11-12 22:26 | DS ---
Date/Time of Note Date/Time of Note DATE: 11/12/18 TIME: 22:16 Discharge Summary Admission/Discharge Info Admit Date/Time November 07, 2018 at 08:30 Discharge Date/Time Nov 12, 2018 at 18:40 Discharge Diagnosis 68-year-old chronically debilitated male who looks older than his stated age who was brought in from home but had recently been at jail facility because of severe back pain and his family's inability to care for him. He is currently managed as follows: 1. Known C7 / [id number] fracture from August 2018 2. Cranial Osteomyelitis 2/2 Decubitus ulcer on the back of the skull, -cultures growing MRSA, VRE, and montse 3. End-stage renal disease on hemodialysis: 4. Fluid overload versus Pna: improved 5. History of multiple previous CVA and chronic bleed, was on Plavix with residual left-sided weakness 6. Chronic depression 7. Paroxysmal atrial fibrillation -not a candidate for anticoagulation -rate controlled 8. Chronic normocytic anemia with Iron deficiency anemia : Stable 9. C diff colitis -Complete 10 days of PO vanc for 1st incident -contact precautions 10. diffuse idiopathic skeletal hyperostosis 11. Chronic debility with prior left-sided paralysis and now essentially bedbound . Patient Condition: Stable Consults Nephrology: Tj Barber MD Infectious disease: Gibson Connor MD Neurosurgery: Rafa Ortiz MD Cardiology: Yang Cook MD . Procedures See hospital course . Hospital Course This is a 68-year-old male who had actually been seen here in August 2018 and at that time had sustained a fall. Patient had a history of end-stage renal disease on hemodialysis as well as previous stroke with left-sided hemiparesis and had sustained a fall after hemodialysis. He was brought to the emergency room here where he was found to have a C7 fracture with a small ligament tear. MRI at that time also showed evidence of a diffuse idiopathic skeletal hyperostosis. He was seen by neurosurgery at the time, and the recommendation at that time was for conservative management with [place] cervical collar and 6- week follow-up with neurosurgery. The patient was transferred to jail facility for continued management and rehab. Apparently patient did not do well at the facility and became more more debilitated. He developed a decubitus ulcer in his occipital scalp and essentially became bedbound. Eventually the family opted to take him home from the rehab center. He had only been home for short while when the family decided to bring him back to the emergency room here. Apparently he had only been home for 4 days. They brought him in because his family was unable to care for him and he continued to have significant pain. When I spoke with the patient's son, the family's intent was for him to get better rehabilitation. He was admitted and managed as follows: First he was found to have fluid overload with possible pneumonia and this was treated with ultrafiltration during hemodialysis and empiric abx Also regarding the decubitus ulcer in his scalp, cultures grew Staphylococcus, (MRSA), VRE and Montse. An MRI as well as a bone scan confirmed the presence of osteomyelitis. ID consultation was obtained, patient did not require debridement, but he was seen by wound care nurses who managed his wounds throughout his hospitalization. Infectious disease give recommendations for long-term IV antibiotics and his recommendations are being implemented. Regarding his prior C7 fracture, we did call neurosurgery who reviewed the patient again. A repeat MRI did show fracture was still present and there was still misalignment. Neurosurgery did plan for a C5-T2 fusion with C6-7 laminectomy, and initially the family had consented to the surgery but on the day prior to change their mind stating they wanted to try conservative management with [place] collar first and see how the patient did. I did explain to them that the patient technically had failed conservative management and it might be in his best interest to do surgery at this time, but the family declined after multiple counseling sessions by both myself and the neurosurgeon. The patient is being discharged to a different jail acility. The patient will need to maintain [place] collar at all times as tolerated. Patient also came in with diarrhea and was diagnosed with C. difficile colitis and was treated appropriately. At the time of discharge patient's diarrhea is improving. Serial lab monitoring also revealed iron deficiency anemia, patient was treated with intravenous Ferrlecit for 3 days with improvement, he will be continued on oral. Regarding his ESRD, he was maintained on dialysis as indicated. Of note is that the MRI also did show that patient has had a prior hemorrhagic incident, likely a hemorrhagic conversion of his prior strokes, his aspirin and Plavix were held for a little bit, but these have been resumed now that he has been cleared by neurosurgery. At this time the patient has been evaluated by myself in detail, he is stable for discharge back to jail facility. . Home Meds Reported Medications Metoprolol Tartrate* (Lopressor*) 25 Mg Tab, 25 MG PO BID, #60 TAB HOLD FOR SBP<110 OR AK<60 11/05/18 Methocarbamol* (Methocarbamol*) 750 Mg Tablet, 750 MG PO Q6H PRN for MUSCLE SPASMS, TAB 11/05/18 Finasteride* (Finasteride*) 5 Mg Tablet, 5 MG PO DAILY, TAB 08/21/18 Citalopram Hydrobromide* (Citalopram Hydrobromide*) 10 Mg Tablet, 10 MG PO DAILY, #30 TAB 08/21/18 Omeprazole* (Omeprazole*) 20 Mg Capsule.dr, 20 MG PO DAILY, #30 CAP 08/21/18 Tamsulosin Hcl* (Tamsulosin Hcl*) 0.4 Mg Cap.er.24h, 0.4 MG PO HS, CAP 08/21/18 Clopidogrel Bisulfate* (Clopidogrel Bisulfate*) 75 Mg Tablet, 75 MG PO DAILY, #30 TAB 08/21/18 Discontinued Reported Medications Acetaminophen* (Tylenol*) 325 Mg Tablet, 325 MG PO NEEDED PRN for PAIN AND OR ELEVATED TEMP, TAB 08/21/18 Discontinued Scripts Metoprolol Tartrate* (Lopressor*) 25 Mg Tab, 25 MG PO BID, #60 TAB 2 Refills Prov:HEATHER METCALF 08/22/18 Hydrocodone Bit-Acetaminophen (Hydrocodone Bit-APAP) 5-325MG Tablet, 1 TAB PO Q6H PRN for .MOD PAIN 4-6, #30 TAB Prov:HEATHER METCALF 08/22/18 Follow-up Plan -Patient will need to follow-up with the neurosurgeon in 4 weeks Name, Degree : Rafa Ortiz MD Specialty : Neurosurgery Office Address : [address] [place] [id number] [address] [employer] -Patient will need to maintain [place] collar at all times -Patient will need to follow-up with primary care doctor for close monitoring of scalp ulcer and to ensure improvement in osteomyelitis until resolution -Patient will need serial lab monitoring while on antibiotics per primary care doctor . Primary Care Provider Care Physician No Primary Time spent on discharge: > 30 minutes Pending Labs Laboratory Tests Test 11/12/18 04:55 White Blood Count 8.2 10^3/ul (4.8-10.8) Red Blood Count 4.63 10^6/ul (4.70-6.10) Hemoglobin 12.8 g/dl (14.0-18.0) Hematocrit 41.4 % (42.0-52.0) Mean Corpuscular Volume 89.4 fl (82.0-101.0) Mean Corpuscular Hemoglobin 27.6 pg (29.0-33.0) Mean Corpuscular Hemoglobin Concent 30.9 g/dl (32.0-37.0) Red Cell Distribution Width 16.8 % (11.5-14.5) Platelet Count 281 10^3/UL (140-415) Mean Platelet Volume 10.3 fl (7.4-10.4) Immature Granulocytes % 0.900 % (0.001-0.429) Neutrophils % 68.4 % (39.0-77.0) Lymphocytes % 15.9 % (15.0-51.0) Monocytes % 7.8 % (0.0-11.0) Eosinophils % 6.0 % (0.0-7.0) Basophils % 1.0 % (0.0-2.0) Nucleated Red Blood Cells % 0.0 /100WBC (0.0-0.0) Immature Granulocytes # 0.070 10^3/ul (0.0-0.031) Neutrophils # 5.6 10^3/ul (1.6-7.5) Lymphocytes # 1.3 10^3/ul (0.8-2.9) Monocytes # 0.6 10^3/ul (0.3-0.9) Eosinophils # 0.5 10^3/ul (0.0-0.5) Basophils # 0.1 10^3/ul (0.0-0.1) Nucleated Red Blood Cells # 0.0 10^3/ul (0.0-0.0) Sodium Level 144 mmol/L (135-144) Potassium Level 4.0 mmol/L (3.5-5.1) Chloride Level 103 mmol/L (97-110) Carbon Dioxide Level 30 mmol/L (21-31) Anion Gap 11 (5-13) Blood Urea Nitrogen 18 mg/dl (7-20) Creatinine 3.43 mg/dl (0.61-1.24) Est Glomerular Filtrat Rate mL/min 18 mL/min (>60) Glucose Level 98 mg/dl (70-220) Calcium Level 9.3 mg/dl (8.4-10.2) Phosphorus Level 3.5 mg/dl (2.5-4.9) Magnesium Level 2.0 mg/dl (1.7-2.5) Iron Level 56 ug/dl (35-150) Total Iron Binding Capacity 186 ug/dl (241-421) Percent Iron Saturation 30 % SAT (22-52) HEATHER METCALF. Nov 12, 2018 22:26
== END 2018-11-12 18:40 | DRG 545 ==
LOC: E/R 15:56 → MS1 22:53 → OBSVTOIN 11-07 08:30
PROVIDERS: ADMIT Family Medicine; ATTEND Family Medicine
PROC: 5A1D70Z Performance of Urinary Filtration, Intermittent, Less than 6 Hours Per Day (ICD-10-PCS; principal; 2018-11-06)
DX: M45.2 Ankylosing spondylitis of cervical region (principal); L89.813 Pressure ulcer of head, stage 3; N18.6 End stage renal disease; M86.8X8 Other osteomyelitis, other site; I13.0 Hypertensive heart and chronic kidney disease with heart failure and stage 1 through stage 4 chronic kidney disease, or unspecified chronic kidney disease; B19.10 Unspecified viral hepatitis B without hepatic coma; A04.72 Enterocolitis due to Clostridium difficile, not specified as recurrent; I69.954 Hemiplegia and hemiparesis following unspecified cerebrovascular disease affecting left non-dominant side; M48.04 Spinal stenosis, thoracic region; I50.9 Heart failure, unspecified; I48.0 Paroxysmal atrial fibrillation; M48.02 Spinal stenosis, cervical region; N40.0 Benign prostatic hyperplasia without lower urinary tract symptoms; F32.9 Major depressive disorder, single episode, unspecified; Z99.2 Dependence on renal dialysis; I25.10 Atherosclerotic heart disease of native coronary artery without angina pectoris; D64.9 Anemia, unspecified; R53.81 Other malaise; D50.9 Iron deficiency anemia, unspecified; E87.70 Fluid overload, unspecified; S12.600D Unspecified displaced fracture of seventh cervical vertebra, subsequent encounter for fracture with routine healing; R19.7 Diarrhea, unspecified; Z79.02 Long term (current) use of antithrombotics/antiplatelets
CPT/HCPCS: 36415; 70551; 71045; 72131; 72141; 78315; 80048; 80053; 80202; 83540; 83735; 84100; 84145; 85025; 85651; 86140; 86706; 87070; 87075; 87081; 87340; 90935; 93005; 93306; 97110; 97163; 97530; A9503; G0378; J0692; J1644; J1940; J2916; J3370; J7050; Q5105